=== PATIENT | female | born 1940 | race Caucasian/White ===

== ENCOUNTER 2023-02-15 18:54 | Inpatient (IN) | payer OTHER ==
--- OUTSIDE RECORDS SUMMARY | 2023-02-15 19:03 | XMS REPORT | Continuity of Care Document ---
:1940 [facility] t Address [address] [facility] [address] [place] [address] Care Team Providers Name Role Phone Daniela Jeronimo MD Primary Care Physician PENNY Attending Clinician Unavailable Suhail Mock MD Attending Clinician Armin Juares MD Attending Clinician Daniela Jeronimo Attending Clinician [phone] Rosa Kimball Attending Clinician Unavailable Provider , Not In System Attending Clinician Unavailable Cynthia Crespo MA Attending Clinician Unavailable Edwin Pérez Attending Clinician [phone] penny Attending Clinician Unavailable ALLAN_Jose Admitting Clinician Unavailable SUHAIL MOCK Admitting Clinician Unavailable penny Admitting Clinician Unavailable Payers Payer Name Policy Type Policy Number Effective Date Expiration Date Hipolito figueroa MEDICARE B-[place]: [id number] 2005 [employer] 00:00:00 WEB-TPA [id number] 2013 00:00:00 WEB TPA (MEDICARE [id number] SUPPLEMENT) [facility] [id number] [employer] (SECONDARY) Problems Condition Condition Condition Status Onset Resolution Last Treating Co mments Source Name Details Category Date Date Treatment Clinician Date Osteoarthr Osteoarthr Problem Active [facility] itis itis 3- [facility] 00:00: ty 00 [facility] Increased Increased Problem Active [facility] frequency Frequency 3-29 Comm uni of of 00:00: ty urination Urination 00 Hosp cb l Clinics Pain in Pain in Problem Active [place] lower limb Lower Limb 1-04 Co mmuni 00:00: ty 00 [facility] Clinics Type 2 Type 2 Problem Active [place] diabetes Diabetes 9-13 Commun i mellitus Mellitus 00:00: ty without without 00 Hospita complicati Complicati l on on Clinics Cobalamin Cobalamin Problem Active [facility] deficiency Deficiency 9-13 Co m[facility]i 00:00: ty 00 [facility] Clinics Essential Essential Problem Active [facility] hypertensi Hypertensi 9-13 Co m[facility]i on on 00:00: ty 00 [facility]ospita [facility] Clinics Low back Low Back Problem Active [facility] pain Pain 8-09 [facility] 00:00: ty 00 [facility] Clin[facility] Weakness Weakness Problem Active [place] of left of Left 8-09 [facility] leg Leg 00:00: ty 00 [facility] Clinics Weakness Weakness Problem Active [place] [facility] of left of Left 809 [facility] arm Arm 00:00: ty 00 [facility]ita [facility] Clinics Left lower Left Lower Problem Active [facility] quadrant Quadrant 6-13 Commun i pain Pain 00:00: ty 00 [facility]ospita l Clinics Chest wall Chest Wall Problem Active [facility] pain Pain 3-17 [facility] 00:00: ty 00 [facility] Clinics Diarrhea Diarrhea Problem Active [facility] 3-17 [facility] 00:00: ty 00 [facility]ospita l Clinics Falls Falls Problem Active [place] 3-17 [facility]i 00:00: ty 00 [facility] Clinics Anxiety Anxiety Problem Active [place] 2-15 [facility] 00:00: ty 00 [facility]ospita l Clinics Left side Left Side Problem Active 2020-10 [facility] sciatica Sciatica 0-06 Commun i 00:00: ty 00 [facility]ospita l Clinics Urinary Urinary Problem Active [place] incontinen Incontinen 1-20 Co mmuni ce ce 00:00: ty 00 [facility]ospita l Clinics Numbness Numbness Problem Active [place] of hand of Hand 9-01 [facility]i 00:00: ty 00 [facility] Clinics Long-term Long-term Problem Active 2020-0 [facility] drug Drug 8-19 [facility] therapy Therapy 00:00: ty [facility] Indigestio Indigestio Problem Active 2019-0 S [facility] n n 5-15 [facility]i 00:00: ty 00 [facility]ospita Clinics Muscle Muscle Problem Active 2019-0 [place] weakness Weakness 5-15 Commun i 00:00: ty 00 [facility] Osteoporos Osteoporos Problem Active 2019-0 S [facility] is is 5-15 [facility]i 00:00: ty [facility] Abdominal Abdominal Problem Active 2019-0 [facility] pain Pain 5-15 [facility] 00:00: ty [facility] Knee pain Knee Pain Problem Active 2018-0 [facility] 9-20 [facility]i 00:00: ty 00 [facility] Hand pain Hand Pain Problem Active 2018-0 [facility] 9-20 [facility]i 00:00: ty 00 [facility] Malaise Malaise Problem Active 2018-0 [place] 9-20 [facility] 00:00: ty [facility]ge Urge Problem Active 2018-0 [place] incontinen Incontinen 9-20 Co mmuni ce of ce of 00:00: ty urine Urine 00 [facility] Upper Upper Problem Active 2018-0 [place] respirator Respirator 5-10 Co mmuni y y 00:00: ty infection Infection 00 Hosp cb Clinics 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 [facility]initis 00:00: ty [facility] Urinary Urinary Problem Active 2018-0 [place] tract Tract 5-10 Communi infectious Infectious 00:00: ty disease Disease 00 [facility] Type 2 Type 2 Problem Active [place] diabetes Diabetes 3-29 Commun i mellitus Mellitus 00:00: ty 00 [facility] Hypertensi Hypertensi Problem Active 2018-0 S [facility] ve ve 3-29 Communi disorder Disorder 00:00: ty 00 [facility] Allergies, Adverse Reactions, Alerts Allergy Allergy Status Severity Reaction(s) Onset Inactive Treating Comm ents Source Name Type Date Date Clinician Ciproflo Propensi Active Altered 2020-10 Metho di xacin ty to Mental 11-10 st adverse Status 00:00: Hospita reaction 00 l s to drug Iodine Propensi Active Swelling 2020-10 Method i ty to 11-10 st adverse 00:00: Hospita reaction 00 l s to drug Cipro Allergy Active Moderate Confusion [place] to [facility] substanc ty e Hospita l Clinics Iodine Allergy Active [place] to [facility] ty e Hospita l Clinics Family History Family Member Diagnosis Comments Start Date Stop Date Source Natural mother [facility] Social History Social Habit Start Date Stop Date Quantity Comments Source [facility] Alcohol intake 2022-09-09 2022-09-09 Current drinker of [facility] 00:00:00 00:00:00 alcohol (finding) Hospita l History of Social 2022-09-09 2022-09-[address] function 00:00:00 00:00:00 Hospital Tobacco use and 2021-08-12 2021-08-12 Smokeless tobacco [facility] exposure 00:00:00 00:00:00 non-user Hospital Alcohol Comment 2021-08-12 2021-08-[address] 00:00:00 00:00:00 [facility] Sex Assigned At [birth year] [facility] Smoking Status Start Date Stop Date Source [facility] smoked tobacco [facility] Medications Ordered Filled Start Stop Current Ordering Indication Dosage Frequency Signature Comments Components Source Medication Medication Date Date Medication? Clinician (SIG) Name Name acetaminoph 2021-10 Yes Take 2 Meth ameya en (TYLENOL 2-[address] ARTHRITIS 10:39: tablet(s) [facility] [place] ORAL) 02 by mouth. l ALPRAZolam 2021-10 Yes .25mg QD Take 0.25 M ethodi (XANAX) 2-[address] 0.25 MG 10:39: mouth Hospita tablet 45 nightly as l needed for anxiety. multivitami 2021-10 Yes 1{tbl} Take 1 [facility]/iron/foli 2-[address] c acid 10:39: mouth. Hospita (CENTRUM 45 l COMPLETE ORAL) beta-carote 2021-10 Yes 1{tbl} Take 1 [facility] ne,A,-vits 2-[address] C,E/mins 10:39: mouth. Hospita (OCUVITE 45 l ORAL) meloxicam 2021-10 Yes 7.5mg QD Take 7.5 [facility] (MOBIC) 7.5 2-[address] mg tablet 10:39: mouth Hospita 45 daily. l lisinopriL 2021-10 Yes 10mg QD Take 10 mg M ethodi (PRINIVIL) 2-[address] 10 mg 10:39: daily. Hospita tablet 45 l insulin 2021-10 Yes 24U Inject 24 Metho di GLARGINE 2-[address] (LANTUS) 10:39: under the Hosp cb 100 unit/mL 45 skin. l injection (vial) ezetimibe 2021-10 Yes ezetimibe [facility] (ZETIA) 10 2-[address] mg tablet 10:39: tablet Hospit a 45 TAKE 1 l TABLET BY MOUTH EVERY DAY cyanocobala cyanocobala 2021-10 No cyanocobal [place] min (vit min (vit 0-04 villafana (vit Co mmuni B-12) 1,000 B-12) 000 15:17: B-12) ty mcg/mL mcg/mL 23 ,000 Hospita injection injection mcg/mL l solutionInj solutionInj injection Clinics ect 1 mL ect 1 mL solutionIn every month every month ject 1 mL by by every subcutaneou subcutaneou month by s route. s route. subcutaneo us route. cyanocobala cyanocobala 2021-10 No cyanocobal [place] min (vit min (vit 0-04 villafana (vit Co mmuni B-12) 1,000 B-12) 000 15:17: B-12) ty mcg/mL mcg/mL 23 1,000 Hospita injection injection mcg/mL l solutionInj solutionInj injection Clinics ect 1 mL ect 1 mL solutionIn every month every month ject 1 mL by by every subcutaneou subcutaneou month by s route. s route. subcutaneo us route. cyanocobala cyanocobala No cyanocobal [place] min (vit min (vit 9-13 villafana (vit Co mmuni B-12) 1,000 B-12) 1,000 10:04: B-12) ty mcg/mL mcg/mL 17 1,000 Hospita injection injection mcg/mL l solutionInj solutionInj injection Clinics ect 1 mL ect 1 mL solutionIn every month every month ject 1 mL by by every subcutaneou subcutaneou month by s route. s route. subcutaneo us route. cyanocobala cyanocobala No cyanocobal [place] min (vit min (vit 8-17 villafana (vit Co mmuni B-12) 1,000 B-12) 1,000 14:00: B-12) ty mcg/mL mcg/mL 50 1,000 Hospita injection injection mcg/mL l solutionInj solutionInj injection Clinics ect 1 mL ect 1 mL solutionIn every month every month ject 1 mL by by every subcutaneou subcutaneou month by s route. s route. subcutaneo us route. diphenoxyla 2021- No [id number] 1{tbl} Q.25D Take 1 Method[facility] te-atropine 8-10 09-[address] (LomotiL) 00:00: 04:59 mouth 4 Hosp cb 2.5-0.025 00 :00 (four) l mg per times a tablet day as needed for diarrhea for up to 30 days. traMADoL 2021- [place] [id number] 50mg Q6H Take 50 mg M ethodi (ULTRAM) 50 04-[address] mg tablet 16:50: 00:00 every 6 Hosp cb 28 :00 (six) l hours as needed for moderate pain .acute pain. mirabegron 2021- No 25mg Take 25 mg [facility] 25 mg 04-[address] tablet 16:50: 00:00 Hospita extended 18 :00 l release 24 hr nitrofurant nitrofurant No nitrofuran [place] oin oin 6-06 toin Communi monohydrate monohydrate 00:00: monohydrat ty /macrocryst /macrocryst 00 e/macrocry Hospita als 100 mg als 100 mg stals 100 l capsule capsule mg capsule Cli nics TAKE 1 TAKE 1 TAKE 1 CAPSULE BY CAPSULE BY CAPSULE BY MOUTH TWICE MOUTH TWICE MOUTH DAILY FOR DAILY FOR TWICE 10 DAYS AND 10 DAYS AND DAILY FOR THEN TAKE 1 THEN TAKE 1 10 DAYS CAPSULE BY CAPSULE BY AND THEN MOUTH EVERY MOUTH EVERY TAKE 1 DAY FOR DAY FOR CAPSULE BY PREVENTION PREVENTION MOUTH OFUTI OFUTI EVERY DAY FOR PREVENTION OFUTI nitrofurant nitrofurant No nitrofuran [place] oin oin 03-14 toin Communi monohydrate monohydrate 00:00: monohydrat ty /macrocryst /macrocryst 00 e/macrocry Hospita als 100 mg als 100 mg stals 100 l capsule capsule mg capsule Cli nics TAKE 1 TAKE 1 TAKE 1 CAPSULE BY CAPSULE BY CAPSULE BY MOUTH TWICE MOUTH TWICE MOUTH DAILY FOR DAILY FOR TWICE 10 DAYS AND 10 DAYS AND DAILY FOR THEN TAKE 1 THEN TAKE 1 10 DAYS CAPSULE BY CAPSULE BY AND THEN MOUTH EVERY MOUTH EVERY TAKE 1 DAY FOR DAY FOR CAPSULE BY PREVENTION PREVENTION MOUTH OFUTI OFUTI EVERY DAY FOR PREVENTION OFUTI nitrofurant nitrofurant No nitrofuran [place] oin oin 03-14 toin Communi monohydrate monohydrate 00:00: monohydrat ty /macrocryst /macrocryst 00 e/macrocry Hospita als 100 mg als 100 mg stals 100 l capsule capsule mg capsule Cli nics TAKE 1 TAKE 1 TAKE 1 CAPSULE BY CAPSULE BY CAPSULE BY MOUTH TWICE MOUTH TWICE MOUTH DAILY FOR DAILY FOR TWICE 10 DAYS AND 10 DAYS AND DAILY FOR THEN TAKE 1 THEN TAKE 1 10 DAYS CAPSULE BY CAPSULE BY AND THEN MOUTH EVERY MOUTH EVERY TAKE 1 DAY FOR DAY FOR CAPSULE BY PREVENTION PREVENTION MOUTH OFUTI OFUTI EVERY DAY FOR PREVENTION OFUTI Kenalog 40 Kenalog 40 No Kenalog 40 [place] mg/mL mg/mL 4-26 mg/mL Communi suspension suspension 14:12: suspension ty for for 34 for Hospita injectionTa injectionTa injectionT l ke 2 mL by ke 2 mL by regine 2 mL Clinics injection injection by route. route. injection route. Myrbetriq Myrbetriq No 1 Q1D Myrbetriq [place] 25 mg 25 mg 25 mg Communi tablet,exte tablet,exte tablet,ext ty nded nded ended Hospita release release release l Take 1 Take 1 Take 1 Clinics tablet tablet tablet every day every day every day by oral by oral by oral route at route at route at bedtime. bedtime. bedtime. Prolia 60 Prolia 60 No Prolia 60 [place] mg/mL mg/mL mg/mL Communi subcutaneou subcutaneou subcutaneo ty s syringe 1 s syringe 1 us syringe Hospita ML SUBQ ML SUBQ 1 ML SUBQ l every 6 every 6 every 6 Clinic s months / months / months / m81.0 m81.0 m81.0 osteoporosi osteoporosi osteoporos s / inj s / inj is / inj code 48338 code 03872 code 57559 sertraline sertraline No sertraline [place] 25 mg 25 mg 25 mg Communi tablet Take tablet Take tablet ty 1 tablet 1 tablet Take 1 Hospi ta every day every day tablet l by oral by oral every day Clin ics route. route. by oral route. UltiCare UltiCare No UltiCare [facility] Pen Needle Pen Needle Pen Needle Communi 32 gauge x 32 gauge x 32 gauge x ty " USE " USE " USE Hospita WITH WITH WITH l INSULIN INSULIN INSULIN Clinic s INJECTIONS INJECTIONS INJECTIONS alprazolam alprazolam No alprazolam [place] 0.25 mg 0.25 mg 0.25 mg Commun i tablet TAKE tablet TAKE tablet ty 1 TABLET BY 1 TABLET BY TAKE 1 Hospita MOUTH EVERY MOUTH EVERY TABLET BY l NIGHT AT NIGHT AT MOUTH Clinic s BEDTIME BEDTIME EVERY NIGHT AT BEDTIME amoxicillin amoxicillin No amoxicilli [place] [phone] n 875 Communi mg-potassiu mg-potassiu mg-potassi ty m m um Hospita clavulanate clavulanate clavulanat l 125 mg 125 mg e 125 mg Clinics tablet Take tablet Take tablet 1 tablet 1 tablet Take 1 every 12 every 12 tablet hours by hours by every 12 oral route oral route hours by for 10 for 10 oral route days. days. for 10 days. [id number] F71-Wklim No 1 Q1D L77-Hugpe [place] 1,000 mcg 1,000 mcg 1,000 mcg Communi tablet Take tablet Take tablet ty 1 tablet 1 tablet Take 1 Hospi ta every day every day tablet l by oral by oral every day Clin ics route. route. by oral route. cyanocobala cyanocobala No 1mL cyanocobal [place] min (vit min (vit villafana (vit Co mmuni B-12) 1,000 B-12) 1,000 B-12) ty mcg/mL mcg/mL 1,000 Hospita injection injection mcg/mL l solution solution injection Cl inics Inject 1 mL Inject 1 mL solution every month every month Inject 1 by by mL every subcutaneou subcutaneou month by s route. s route. subcutaneo us route. Lantus Lantus No Lantus [place] Solostar Solostar Solostar Com shadi U-100 U-100 U-100 ty Insulin 100 Insulin 100 Insulin Hospita unit/mL (3 unit/mL (3 100 l mL) mL) unit/mL (3 Clinics subcutaneou subcutaneou mL) s pen s pen subcutaneo INJECT 80 INJECT 80 us pen UNITS UNDER UNITS UNDER INJECT 80 THE SKIN THE SKIN UNITS EVERY DAY EVERY DAY UNDER THE SKIN EVERY DAY levothyroxi levothyroxi No levothyrox [place] ne 25 mcg ne 25 mcg ine 25 mcg Communi tablet TAKE tablet TAKE tablet ty 1 TABLET BY 1 TABLET BY TAKE 1 Hospita MOUTH EVERY MOUTH EVERY TABLET BY l DAY DAY MOUTH Clinics EVERY DAY lisinopril lisinopril No lisinopril [place] 10 mg 10 mg 10 mg Communi tablet Take tablet Take tablet ty 1 tablet 1 tablet Take 1 Hospi ta every day every day tablet l by oral by oral every day Clin ics route. route. by oral route. Multi For Multi For No Multi For [place] Her Her Her Communi ty Hospita l Clinics Myrbetriq Myrbetriq No 1 Q1D Myrbetriq [place] 25 mg 25 mg 25 mg Communi tablet,exte tablet,exte tablet,ext ty nded nded ended Hospita release release release l Take 1 Take 1 Take 1 Clinics tablet tablet tablet every day every day every day by oral by oral by oral route at route at route at bedtime. bedtime. bedtime. Prolia 60 Prolia 60 No Prolia 60 [place] mg/mL mg/mL mg/mL Communi subcutaneou subcutaneou subcutaneo ty s syringe 1 s syringe 1 us syringe Hospita ML SUBQ ML SUBQ 1 ML SUBQ l every 6 every 6 every 6 Clinic s months / months / months / m81.0 m81.0 m81.0 osteoporosi osteoporosi osteoporos s / inj s / inj is / inj code 25970 code 60618 code 78305 sertraline sertraline No sertraline [place] 25 mg 25 mg 25 mg Communi tablet Take tablet Take tablet ty 1 tablet 1 tablet Take 1 Hospi ta every day every day tablet l by oral by oral every day Clin ics route. route. by oral route. UltiCare UltiCare No UltiCare [facility] Pen Needle Pen Needle Pen Needle Communi 32 gauge x 32 gauge x 32 gauge x ty " USE " USE " USE Hospita WITH WITH WITH l INSULIN INSULIN INSULIN Clinic s INJECTIONS INJECTIONS INJECTIONS alprazolam alprazolam No alprazolam [place] 0.25 mg 0.25 mg 0.25 mg Commun i tablet TAKE tablet TAKE tablet ty 1 TABLET BY 1 TABLET BY TAKE 1 Hospita MOUTH EVERY MOUTH EVERY TABLET BY l NIGHT AT NIGHT AT MOUTH Clinic s BEDTIME BEDTIME EVERY NIGHT AT BEDTIME amoxicillin amoxicillin No amoxicilli [place] [id number] n 875 Communi mg-potassiu mg-potassiu mg-potassi ty m m um Hospita clavulanate clavulanate clavulanat l 125 mg 125 mg e 125 mg Clinics tablet Take tablet Take tablet 1 tablet 1 tablet Take 1 every 12 every 12 tablet hours by hours by every 12 oral route oral route hours by for 10 for 10 oral route days. days. for 10 days. [id number] K58-Vrtqc No 1 Q1D J01-Kbgsd [place] 1,000 mcg 1,000 mcg 1,000 mcg Communi tablet Take tablet Take tablet ty 1 tablet 1 tablet Take 1 Hospi ta every day every day tablet l by oral by oral every day Clin ics route. route. by oral route. cyanocobala cyanocobala No 1mL cyanocobal [place] min (vit min (vit villafana (vit Co mmuni B-12) 1,000 B-12) 1,000 B-12) ty mcg/mL mcg/mL 1,000 Hospita injection injection mcg/mL l solution solution injection Cl inics Inject 1 mL Inject 1 mL solution every month every month Inject 1 by by mL every subcutaneou subcutaneou month by s route. s route. subcutaneo us route. Kenalog 40 Kenalog 40 No 2mL Kenalog 40 [place] mg/mL mg/mL mg/mL Communi suspension suspension suspension ty for for for Hospita injection injection injection l Take 2 mL Take 2 mL Take 2 mL Clinics by by by injection injection injection route. route. route. Lantus Lantus No Lantus [place] Solostar Solostar Solostar Com shadi U-100 U-100 U-100 ty Insulin 100 Insulin 100 Insulin Hospita unit/mL (3 unit/mL (3 100 l mL) mL) unit/mL (3 Clinics subcutaneou subcutaneou mL) s pen s pen subcutaneo INJECT 80 INJECT 80 us pen UNITS UNDER UNITS UNDER INJECT 80 THE SKIN THE SKIN UNITS EVERY DAY EVERY DAY UNDER THE SKIN EVERY DAY levothyroxi levothyroxi No levothyrox [place] ne 25 mcg ne 25 mcg ine 25 mcg Communi tablet TAKE tablet TAKE tablet ty 1 TABLET BY 1 TABLET BY TAKE 1 Hospita MOUTH EVERY MOUTH EVERY TABLET BY l DAY DAY MOUTH Clinics EVERY DAY lisinopril lisinopril No lisinopril [place] 10 mg 10 mg 10 mg Communi tablet Take tablet Take tablet ty 1 tablet 1 tablet Take 1 Hospi ta every day every day tablet l by oral by oral every day Clin ics route. route. by oral route. Multi For Multi For No Multi For [place] Her Her Her Communi ty Hospita l Clinics Myrbetriq Myrbetriq No Myrbetriq [place] 25 mg 25 mg 25 mg Communi tablet,exte tablet,exte tablet,ext ty nded nded ended Hospita release release release l Take 1 Take 1 Take 1 Clinics tablet tablet tablet every day every day every day by oral by oral by oral route at route at route at bedtime. bedtime. bedtime. Prolia 60 Prolia 60 No Prolia 60 [place] mg/mL mg/mL mg/mL Communi subcutaneou subcutaneou subcutaneo ty s syringe 1 s syringe 1 us syringe Hospita ML SUBQ ML SUBQ 1 ML SUBQ l every 6 every 6 every 6 Clinic s months / months / months / m81.0 m81.0 m81.0 osteoporosi osteoporosi osteoporos s / inj s / inj is / inj code 23320 code 25832 code 66149 sertraline sertraline No sertraline [place] 25 mg 25 mg 25 mg Communi tablet Take tablet Take tablet ty 1 tablet 1 tablet Take 1 Hospi ta every day every day tablet l by oral by oral every day Clin ics route. route. by oral route. UltiCare UltiCare No UltiCare [facility] Pen Needle Pen Needle Pen Needle Communi 32 gauge x 32 gauge x 32 gauge x ty " USE " USE " USE Hospita WITH WITH WITH l INSULIN INSULIN INSULIN Clinic s INJECTIONS INJECTIONS INJECTIONS Zithromax Zithromax No Zithromax [place] Z-August 250 Z-August 250 Z-August 250 Communi mg tablet mg tablet mg tablet ty TAKE 2 TAKE 2 TAKE 2 Hospita TABLETS TABLETS TABLETS l (500 MG) BY (500 MG) BY (500 MG) Clinics ORAL ROUTE ORAL ROUTE BY ORAL ONCE DAILY ONCE DAILY ROUTE ONCE FOR 1 DAY FOR 1 DAY DAILY FOR THEN 1 THEN 1 1 DAY THEN TABLET (250 TABLET (250 1 TABLET MG) BY ORAL MG) BY ORAL (250 MG) ROUTE ONCE ROUTE ONCE BY ORAL DAILY FOR 4 DAILY FOR 4 ROUTE ONCE DAYS DAYS DAILY FOR 4 DAYS alprazolam alprazolam No alprazolam [place] 0.25 mg 0.25 mg 0.25 mg Commun i tablet TAKE tablet TAKE tablet ty 1 TABLET BY 1 TABLET BY TAKE 1 Hospita MOUTH EVERY MOUTH EVERY TABLET BY l NIGHT AT NIGHT AT MOUTH Clinic s BEDTIME BEDTIME EVERY NIGHT AT BEDTIME [id number] W04-Gtaxq No 1 Q1D N18-Edqvo [place] 1,000 mcg 1,000 mcg 1,000 mcg Communi tablet Take tablet Take tablet ty 1 tablet 1 tablet Take 1 Hospi ta every day every day tablet l by oral by oral every day Clin ics route. route. by oral route. cyanocobala cyanocobala No 1mL cyanocobal [place] min (vit min (vit villafana (vit Co mmuni B-12) 1,000 B-12) 1,000 B-12) ty mcg/mL mcg/mL 1,000 Hospita injection injection mcg/mL l solution solution injection Cl inics Inject 1 mL Inject 1 mL solution every month every month Inject 1 by by mL every subcutaneou subcutaneou month by s route. s route. subcutaneo us route. Lantus Lantus No Lantus [place] Solostar Solostar Solostar Com shadi U-100 U-100 U-100 ty Insulin 100 Insulin 100 Insulin Hospita unit/mL (3 unit/mL (3 100 l mL) mL) unit/mL (3 Clinics subcutaneou subcutaneou mL) s pen s pen subcutaneo INJECT 80 INJECT 80 us pen UNITS UNDER UNITS UNDER INJECT 80 THE SKIN THE SKIN UNITS EVERY DAY EVERY DAY UNDER THE SKIN EVERY DAY levothyroxi levothyroxi No levothyrox [place] ne 25 mcg ne 25 mcg ine 25 mcg Communi tablet TAKE tablet TAKE tablet ty 1 TABLET BY 1 TABLET BY TAKE 1 Hospita MOUTH EVERY MOUTH EVERY TABLET BY l DAY DAY MOUTH Clinics EVERY DAY lisinopril lisinopril No lisinopril [place] 10 mg 10 mg 10 mg Communi tablet Take tablet Take tablet ty 1 tablet 1 tablet Take 1 Hospi ta every day every day tablet l by oral by oral every day Clin ics route. route. by oral route. meloxicam meloxicam No 1 Q1D meloxicam [place] 7.5 mg 7.5 mg 7.5 mg Communi tablet Take tablet Take tablet ty 1 tablet 1 tablet Take 1 Hospi ta every day every day tablet l by oral by oral every day Clin ics route with route with by oral meals. meals. route with meals. Multi For Multi For No Multi For [place] Her Her Her Communi ty Hospita l Clinics Myrbetriq Myrbetriq No Myrbetriq [place] 25 mg 25 mg 25 mg Communi tablet,exte tablet,exte tablet,ext ty nded nded ended Hospita release release release l TAKE 1 TAKE 1 TAKE 1 Clinics TABLET BY TABLET BY TABLET BY MOUTH EVERY MOUTH EVERY MOUTH NIGHT AT NIGHT AT EVERY BEDTIME BEDTIME NIGHT AT BEDTIME Prolia 60 Prolia 60 No Prolia 60 [place] mg/mL mg/mL mg/mL Communi subcutaneou subcutaneou subcutaneo ty s syringe 1 s syringe 1 us syringe Hospita ML SUBQ ML SUBQ 1 ML SUBQ l every 6 every 6 every 6 Clinic s months / months / months / m81.0 m81.0 m81.0 osteoporosi osteoporosi osteoporos s / inj s / inj is / inj code 19174 code 40757 code 92210 sertraline sertraline No sertraline [place] 25 mg 25 mg 25 mg Communi tablet Take tablet Take tablet ty 1 tablet 1 tablet Take 1 Hospi ta every day every day tablet l by oral by oral every day Clin ics route. route. by oral route. UltiCare UltiCare No UltiCare [facility] Pen Needle Pen Needle Pen Needle [facility]i 32 gauge x 32 gauge x 32 gauge x ty " USE " USE " USE Hospita DIRECTED DIRECTED l WITH WITH DIRECTED Clinics INSULIN INSULIN WITH INJECTIONS INJECTIONS INSULIN INJECTIONS alprazolam alprazolam No alprazolam [place] 0.25 mg 0.25 mg 0.25 mg Commun i tablet TAKE tablet TAKE tablet ty 1 TABLET BY 1 TABLET BY TAKE 1 Hospita MOUTH EVERY MOUTH EVERY TABLET BY l NIGHT AT NIGHT AT MOUTH Clinic s BEDTIME BEDTIME EVERY NIGHT AT BEDTIME [id number] F52-Lfwao No 1 Q1D J93-Iluax [place] 1,000 mcg 1,000 mcg 1,000 mcg Communi tablet Take tablet Take tablet ty 1 tablet 1 tablet Take 1 Hospi ta every day every day tablet l by oral by oral every day Clin ics route. route. by oral route. Bactrim DS Bactrim DS No 1 Q12H Bactrim DS [place] 800 mg-160 800 mg-160 800 mg-160 [facility] mg tablet mg tablet mg tablet ty Take 1 Take 1 Take 1 Hospita tablet tablet tablet l every 12 every 12 every 12 Cli nics hours by hours by hours by oral route oral route oral route for 7 days. for 7 days. for 7 days. cyanocobala cyanocobala No 1mL cyanocobal [place] min (vit min (vit villafana (vit Co mmuni B-12) 1,000 B-12) 1,000 B-12) ty mcg/mL mcg/mL 1,000 Hospita injection injection mcg/mL l solution solution injection Cl inics Inject 1 mL Inject 1 mL solution every month every month Inject 1 by by mL every subcutaneou subcutaneou month by s route. s route. subcutaneo us route. Lantus Lantus No Lantus [place] Solostar Solostar Solostar Com shadi U-100 U-100 U-100 ty Insulin 100 Insulin 100 Insulin Hospita unit/mL (3 unit/mL (3 100 l mL) mL) unit/mL (3 Clinics subcutaneou subcutaneou mL) s pen s pen subcutaneo INJECT 80 INJECT 80 us pen UNITS UNDER UNITS UNDER INJECT 80 THE SKIN THE SKIN UNITS EVERY DAY EVERY DAY UNDER THE SKIN EVERY DAY levothyroxi levothyroxi No levothyrox [place] ne 25 mcg ne 25 mcg ine 25 mcg [facility] tablet TAKE tablet TAKE tablet ty 1 TABLET BY 1 TABLET BY TAKE 1 Hospita MOUTH EVERY MOUTH EVERY TABLET BY l DAY DAY MOUTH Clinics EVERY DAY lisinopril lisinopril No lisinopril [place] 10 mg 10 mg 10 mg [facility] tablet Take tablet Take tablet ty 1 tablet 1 tablet Take 1 Hospi ta every day every day tablet l by oral by oral every day Clin ics route. route. by oral route. Medrol Medrol No Medrol [place] (August) 4 mg (August) 4 mg (August) 4 mg [facility] tablets in tablets in tablets in ty a dose pack a dose pack a dose Hospita as directed as directed pack as l directed Clinics meloxicam meloxicam No meloxicam [place] 7.5 mg 7.5 mg 7.5 mg [facility] tablet Take tablet Take tablet ty 1 tablet 1 tablet Take 1 Hospi ta every day every day tablet l by oral by oral every day Clin ics route with route with by oral meals. meals. route with meals. Multi For Multi For No Multi For [place] Her Her Her [facility] ty Hospita l Clinics Myrbetriq Myrbetriq No Myrbetriq [place] 25 mg 25 mg 25 mg [facility] tablet,exte tablet,exte tablet,ext ty nded nded ended Hospita release release release l TAKE 1 TAKE 1 TAKE 1 Clinics TABLET BY TABLET BY TABLET BY MOUTH EVERY MOUTH EVERY MOUTH NIGHT AT NIGHT AT EVERY BEDTIME BEDTIME NIGHT AT BEDTIME Prolia 60 Prolia 60 No Prolia 60 [place] mg/mL mg/mL mg/mL [facility]i subcutaneou subcutaneou subcutaneo ty s syringe 1 s syringe 1 us syringe Hospita ML SUBQ ML SUBQ 1 ML SUBQ l every 6 every 6 every 6 Clinic s months / months / months / m81.0 m81.0 m81.0 osteoporosi osteoporosi osteoporos s / inj s / inj is / inj code 63327 code 53436 code 48383 sertraline sertraline No sertraline [place] 25 mg 25 mg 25 mg [facility] tablet Take tablet Take tablet ty 1 tablet 1 tablet Take 1 Hospi ta every day every day tablet l by oral by oral every day Clin ics route. route. by oral route. UltiCare UltiCare No UltiCare Swe tristian Pen Needle Pen Needle Pen Needle [facility] 32 gauge x 32 gauge x 32 gauge x ty " USE " USE " USE Hospita DIRECTED DIRECTED l WITH WITH DIRECTED Clinics INSULIN INSULIN WITH INJECTIONS INJECTIONS INSULIN INJECTIONS alprazolam alprazolam No alprazolam [place] 0.25 mg 0.25 mg 0.25 mg Commun i tablet TAKE tablet TAKE tablet ty 1 TABLET BY 1 TABLET BY TAKE 1 Hospita MOUTH EVERY MOUTH EVERY TABLET BY l NIGHT AT NIGHT AT MOUTH Clinic s BEDTIME BEDTIME EVERY NIGHT AT BEDTIME [id number] No 1 Q1D [id number] [place] 1,000 mcg 1,000 mcg 1,000 mcg [facility] tablet Take tablet Take tablet ty 1 tablet 1 tablet Take 1 Hospi ta every day every day tablet l by oral by oral every day Clin ics route. route. by oral route. cyanocobala cyanocobala No 1mL cyanocobal [place] min (vit min (vit villafana (vit Co mmuni B-12) 1,000 B-12) 1,000 B-12) ty mcg/mL mcg/mL 1,000 Hospita injection injection mcg/mL l solution solution injection Cl inics Inject 1 mL Inject 1 mL solution every month every month Inject 1 by by mL every subcutaneou subcutaneou month by s route. s route. subcutaneo us route. Lantus Lantus No Lantus [place] Solostar Solostar Solostar Com shadi U-100 U-100 U-100 ty Insulin 100 Insulin 100 Insulin Hospita unit/mL (3 unit/mL (3 100 l mL) mL) unit/mL (3 Clinics subcutaneou subcutaneou mL) s pen s pen subcutaneo INJECT 80 INJECT 80 us pen UNITS UNDER UNITS UNDER INJECT 80 THE SKIN THE SKIN UNITS EVERY DAY EVERY DAY UNDER THE SKIN EVERY DAY levothyroxi levothyroxi No levothyrox [place] ne 25 mcg ne 25 mcg ine 25 mcg [facility] tablet TAKE tablet TAKE tablet ty 1 TABLET BY 1 TABLET BY TAKE 1 Hospita MOUTH EVERY MOUTH EVERY TABLET BY l DAY DAY MOUTH Clinics EVERY DAY lisinopril lisinopril No lisinopril [place] 10 mg 10 mg 10 mg [facility] tablet Take tablet Take tablet ty 1 tablet 1 tablet Take 1 Hospi ta every day every day tablet l by oral by oral every day Clin ics route. route. by oral route. meloxicam meloxicam No meloxicam [place] 7.5 mg 7.5 mg 7.5 mg [facility] tablet Take tablet Take tablet ty 1 tablet 1 tablet Take 1 Hospi ta every day every day tablet l by oral by oral every day Clin ics route with route with by oral meals. meals. route with meals. methylpredn methylpredn No methylpred [place] isolone 4 isolone 4 nisolone 4 [facility] mg tablets mg tablets mg tablets ty in a dose in a dose in a dose Hospita pack as pack as pack as l directed directed directed Cli nics Multi For Multi For No Multi For [place] Her Her Her Commun[facility] ty Hospita l Clinics Myrbetriq Myrbetriq No Myrbetriq [place] 25 mg 25 mg 25 mg [facility] tablet,exte tablet,exte tablet,ext ty nded nded ended Hospita release release release l TAKE 1 TAKE 1 TAKE 1 Clinics TABLET BY TABLET BY TABLET BY MOUTH EVERY MOUTH EVERY MOUTH NIGHT AT NIGHT AT EVERY BEDTIME BEDTIME NIGHT AT BEDTIME Prolia 60 Prolia 60 No Prolia 60 [place] mg/mL mg/mL mg/mL [facility] subcutaneou subcutaneou subcutaneo ty s syringe 1 s syringe 1 us syringe Hospita ML SUBQ ML SUBQ 1 ML SUBQ l every 6 every 6 every 6 Clinic s months / months / months / m81.0 m81.0 m81.0 osteoporosi osteoporosi osteoporos s / inj s / inj is / inj code 37208 code 57586 code 12839 sertraline sertraline No sertraline [place] 25 mg 25 mg 25 mg [facility] tablet Take tablet Take tablet ty 1 tablet 1 tablet Take 1 Hospi ta every day every day tablet l by oral by oral every day Clin ics route. route. by oral route. sulfamethox sulfamethox No sulfametho [place] azole 800 azole 800 xazole 800 [facility] mg-trimetho mg-trimetho mg-trimeth ty prim 160 mg prim 160 mg oprim 160 Hospita tablet Take tablet Take mg tablet l 1 tablet 1 tablet Take 1 Clini cs every 12 every 12 tablet hours by hours by every 12 oral route oral route hours by for 7 days. for 7 days. oral route for 7 days. UltiCare UltiCare No UltiCare Swe tristian Pen Needle Pen Needle Pen Needle [facility] 32 gauge x 32 gauge x 32 gauge x ty " USE " USE " USE Hospita DIRECTED DIRECTED l WITH WITH DIRECTED Clinics INSULIN INSULIN WITH INJECTIONS INJECTIONS INSULIN INJECTIONS alprazolam alprazolam No alprazolam [place] 0.25 mg 0.25 mg 0.25 mg Commun i tablet TAKE tablet TAKE tablet ty 1 TABLET BY 1 TABLET BY TAKE 1 Hospita MOUTH EVERY MOUTH EVERY TABLET BY l NIGHT AT NIGHT AT MOUTH Clinic s BEDTIME BEDTIME EVERY NIGHT AT BEDTIME [id number] No 1 Q1D [id number] [place] 1,000 mcg 1,000 mcg 1,000 mcg [facility] tablet Take tablet Take tablet ty 1 tablet 1 tablet Take 1 Hospi ta every day every day tablet l by oral by oral every day Clin ics route. route. by oral route. cyanocobala cyanocobala No 1mL cyanocobal [place] min (vit min (vit villafana (vit Co mmuni B-12) 1,000 B-12) 1,000 B-12) ty mcg/mL mcg/mL 1,000 Hospita injection injection mcg/mL l solution solution injection Cl inics Inject 1 mL Inject 1 mL solution every month every month Inject 1 by by mL every subcutaneou subcutaneou month by s route. s route. subcutaneo us route. duloxetine duloxetine No 1capsul Q1D duloxetine [place] 30 mg 30 mg e(s) 30 mg [facility] capsule,del capsule,del capsule,de ty ayed ayed layed Hospita release release release l Take 1 Take 1 Take 1 Clinics capsule capsule capsule every day every day every day by oral by oral by oral route. route. route. gatifloxaci gatifloxaci No gatifloxac [place] n 0.5 % eye n 0.5 % eye in 0.5 % [facility] drops drops eye drops ty INSTILL 1 INSTILL 1 INSTILL 1 Hospita DROP IN DROP IN DROP IN l LEFT EYE LEFT EYE LEFT EYE Cli nics FOUR TIMES FOUR TIMES FOUR TIMES DAILY FOR 7 DAILY FOR 7 DAILY FOR DAYS DAYS 7 DAYS Lantus Lantus No Lantus [place] Solostar Solostar Solostar Com shadi U-100 U-100 U-100 ty Insulin 100 Insulin 100 Insulin Hospita unit/mL (3 unit/mL (3 100 l mL) mL) unit/mL (3 Clinics subcutaneou subcutaneou mL) s pen s pen subcutaneo INJECT 80 INJECT 80 us pen UNITS UNDER UNITS UNDER INJECT 80 THE SKIN THE SKIN UNITS EVERY DAY EVERY DAY UNDER THE SKIN EVERY DAY levothyroxi levothyroxi No levothyrox [place] ne 25 mcg ne 25 mcg ine 25 mcg [facility] tablet TAKE tablet TAKE tablet ty 1 TABLET BY 1 TABLET BY TAKE 1 Hospita MOUTH EVERY MOUTH EVERY TABLET BY l DAY DAY MOUTH Clinics EVERY DAY lisinopril lisinopril No lisinopril [place] 10 mg 10 mg 10 mg [facility] tablet TAKE tablet TAKE tablet ty 1 TABLET BY 1 TABLET BY TAKE 1 Hospita MOUTH ONCE MOUTH ONCE TABLET BY l EVERY DAY EVERY DAY MOUTH ONCE Clinics EVERY DAY meloxicam meloxicam No meloxicam [place] 7.5 mg 7.5 mg 7.5 mg [facility] tablet TAKE tablet TAKE tablet ty 1 TABLET BY 1 TABLET BY TAKE 1 Hospita MOUTH EVERY MOUTH EVERY TABLET BY l DAY WITH A DAY WITH A MOUTH Cl inics MEAL MEAL EVERY DAY WITH A MEAL Multi For Multi For No Multi For [place] Her Her Her [facility] ty Hospita l Clinics Myrbetriq Myrbetriq No Myrbetriq [place] 25 mg 25 mg 25 mg [facility] tablet,exte tablet,exte tablet,ext ty nded nded ended Hospita release release release l TAKE 1 TAKE 1 TAKE 1 Clinics TABLET BY TABLET BY TABLET BY MOUTH EVERY MOUTH EVERY MOUTH NIGHT AT NIGHT AT EVERY BEDTIME BEDTIME NIGHT AT BEDTIME Prolia 60 Prolia 60 No Prolia 60 [place] mg/mL mg/mL mg/mL [facility] subcutaneou subcutaneou subcutaneo ty s syringe 1 s syringe 1 us syringe Hospita ML SUBQ ML SUBQ 1 ML SUBQ l every 6 every 6 every 6 Clinic s months / months / months / m81.0 m81.0 m81.0 osteoporosi osteoporosi osteoporos s / inj s / inj is / inj code 24796 code 56195 code 82528 tramadol 50 tramadol 50 No tramadol [place] mg tablet mg tablet 50 mg Comm uni TAKE 1 TAKE 1 tablet ty TABLET BY TABLET BY TAKE 1 [facility] MOUTH EVERY MOUTH EVERY TABLET BY l 6 HOURS 6 HOURS MOUTH Clinics EVERY 6 HOURS Ult[facility] UltiCare No UltiCare Swe tristian Pen Needle Pen Needle Pen Needle [facility] 32 gauge x 32 gauge x 32 gauge x ty " USE " USE " USE Hospita DIRECTED DIRECTED l WITH WITH DIRECTED Clinics INSULIN INSULIN WITH INJECTIONS INJECTIONS INSULIN INJECTIONS alprazolam alprazolam No alprazolam [place] 0.25 mg 0.25 mg 0.25 mg Commun i tablet TAKE tablet TAKE tablet ty 1 TABLET BY 1 TABLET BY TAKE 1 Hospita MOUTH EVERY MOUTH EVERY TABLET BY l NIGHT AT NIGHT AT MOUTH Clinic s BEDTIME BEDTIME EVERY NIGHT AT BEDTIME diphenoxyla diphenoxyla No diphenoxyl [place] te-atropine te-atropine ate-atropi Communi 2.5 2.5 ne 2.5 ty mg-0.025 mg mg-0.025 mg mg-0.025 Hospita tablet 2 tablet 2 mg tablet l tablets at tablets at 2 tablets Clinics first loose first loose at first stool, then stool, then loose 1 tablet 1 tablet stool, each each then 1 additional additional tablet loose stool loose stool each up to 6 up to 6 additional tablets tablets loose daily. as daily. as stool up needed. needed. to 6 tablets daily. as needed. Lantus Lantus No Lantus [place] Solostar Solostar Solostar Com shadi U-100 U-100 U-100 ty Insulin 100 Insulin 100 Insulin Hospita unit/mL (3 unit/mL (3 100 l mL) mL) unit/mL (3 Clinics subcutaneou subcutaneou mL) s pen s pen subcutaneo INJECT 80 INJECT 80 us pen UNITS UNDER UNITS UNDER INJECT 80 THE SKIN THE SKIN UNITS EVERY DAY EVERY DAY UNDER THE SKIN EVERY DAY lisinopril lisinopril No lisinopril [place] 10 mg 10 mg 10 mg [facility] tablet TAKE tablet TAKE tablet ty 1 TABLET BY 1 TABLET BY TAKE 1 Hospita MOUTH ONCE MOUTH ONCE TABLET BY l EVERY DAY EVERY DAY MOUTH ONCE Clinics EVERY DAY meloxicam meloxicam No meloxicam [place] 7.5 mg 7.5 mg 7.5 mg [facility] tablet TAKE tablet TAKE tablet ty 1 TABLET BY 1 TABLET BY TAKE 1 Hospita MOUTH EVERY MOUTH EVERY TABLET BY l DAY WITH A DAY WITH A MOUTH Cl inics MEAL MEAL EVERY DAY WITH A MEAL metronidazo metronidazo No metronidaz [place] le 500 mg le 500 mg ole 500 mg [facility] tablet TAKE tablet TAKE tablet ty 1 TABLET BY 1 TABLET BY TAKE 1 Hospita MOUTH EVERY MOUTH EVERY TABLET BY l 8 HOURS 8 HOURS MOUTH Clinics EVERY [facility] ni ty Hospita l Clinics Prolia 60 Prolia 60 No Prolia 60 [place] mg/mL mg/mL mg/mL [facility] subcutaneou subcutaneou subcutaneo ty s syringe 1 s syringe 1 us syringe Hospita ML SUBQ ML SUBQ 1 ML SUBQ l every 6 every 6 every 6 Clinic s months / months / months / m81.0 m81.0 m81.0 osteoporosi osteoporosi osteoporos s / inj s / inj is / inj code 40193 code 45563 code 89360 tramadol 50 tramadol 50 No tramadol [place] mg tablet mg tablet 50 mg Comm uni TAKE 1 TAKE 1 tablet ty TABLET BY TABLET BY TAKE 1 [facility] MOUTH EVERY MOUTH EVERY TABLET BY l 6 HOURS 6 HOURS MOUTH Clinics EVERY 6 HOURS [facility] UltiCare No [facility] Swe tristian Pen Needle Pen Needle Pen Needle [facility] 32 gauge x 32 gauge x 32 gauge x ty " USE " USE " USE Hospita DIRECTED DIRECTED l WITH WITH DIRECTED Clinics INSULIN INSULIN WITH INJECTIONS INJECTIONS INSULIN INJECTIONS alprazolam alprazolam No alprazolam [place] 0.25 mg 0.25 mg 0.25 mg Commun i tablet TAKE tablet TAKE tablet ty 1 TABLET BY 1 TABLET BY TAKE 1 Hospita MOUTH EVERY MOUTH EVERY TABLET BY l NIGHT AT NIGHT AT MOUTH Clinic s BEDTIME BEDTIME EVERY NIGHT AT BEDTIME diphenoxyla diphenoxyla No diphenoxyl [place] te-atropine te-atropine ate-atropi Communi 2.5 2.5 ne 2.5 ty mg-0.025 mg mg-0.025 mg mg-0.025 Hospita tablet 2 tablet 2 mg tablet l tablets at tablets at 2 tablets Clinics first loose first loose at first stool, then stool, then loose 1 tablet 1 tablet stool, each each then 1 additional additional tablet loose stool loose stool each up to 6 up to 6 additional tablets tablets loose daily. as daily. as stool up needed. needed. to 6 tablets daily. as needed. duloxetine duloxetine No duloxetine [place] 30 mg 30 mg 30 mg [facility] capsule,del capsule,del capsule,de ty ayed ayed layed Hospita release release release l TAKE 1 TAKE 1 TAKE 1 Clinics CAPSULE BY CAPSULE BY CAPSULE BY MOUTH EVERY MOUTH EVERY MOUTH DAY DAY EVERY DAY ezetimibe ezetimibe No ezetimibe [place] 10 mg 10 mg 10 mg [facility] tablet TAKE tablet TAKE tablet ty 1 TABLET BY 1 TABLET BY TAKE 1 Hospita MOUTH EVERY MOUTH EVERY TABLET BY l DAY DAY MOUTH Clinics EVERY DAY Lantus Lantus No Lantus [place] Solostar Solostar Solostar Com shadi U-100 U-100 U-100 ty Insulin 100 Insulin 100 Insulin Hosp[facility] unit/mL (3 unit/mL (3 100 l mL) mL) unit/mL (3 Clinics subcutaneou subcutaneou mL) s pen s pen subcutaneo INJECT 80 INJECT 80 us pen UNITS UNDER UNITS UNDER INJECT 80 THE SKIN THE SKIN UNITS EVERY DAY EVERY DAY UNDER THE SKIN EVERY DAY lisinopril lisinopril No lisinopril [place] 10 mg 10 mg 10 mg [facility]i tablet TAKE tablet TAKE tablet ty 1 TABLET BY 1 TABLET BY TAKE 1 Hospita MOUTH ONCE MOUTH ONCE TABLET BY l EVERY DAY EVERY DAY MOUTH ONCE Clinics EVERY DAY meloxicam meloxicam No meloxicam [place] 7.5 mg 7.5 mg 7.5 mg [facility] tablet TAKE tablet TAKE tablet ty 1 TABLET BY 1 TABLET BY TAKE 1 Hospita MOUTH EVERY MOUTH EVERY TABLET BY l DAY WITH A DAY WITH A MOUTH Cl inics MEAL MEAL EVERY DAY WITH A MEAL [facility] Hospita l Clinics potassium potassium No potassium [place] chloride ER chloride ER chloride Communi 10 mEq 10 mEq ER 10 mEq ty tablet,exte tablet,exte tablet,ext Hospita nded nded ended l release release release Clinic s TAKE 1 TAKE 1 TAKE 1 TABLET BY TABLET BY TABLET BY MOUTH EVERY MOUTH EVERY MOUTH DAY DAY EVERY DAY Prolia 60 Prolia 60 No Prolia 60 [place] mg/mL mg/mL mg/mL Communi subcutaneou subcutaneou subcutaneo ty s syringe 1 s syringe 1 us syringe Hospita ML SUBQ ML SUBQ 1 ML SUBQ l every 6 every 6 every 6 Clinic s months / months / months / m81.0 m81.0 m81.0 osteoporosi osteoporosi osteoporos s / inj s / inj is / inj code 52852 code 11000 code 98238 Questran 4 Questran 4 No 1packet TID Questran 4 [place] gram powder gram powder (s) gram C ommuni for susp in for susp in powder for ty a packet a packet susp in a Ho spita Take 1 Take 1 packet l packet 3 packet 3 Take 1 Clini cs times a day times a day packet 3 by oral by oral times a route. route. day by oral route. sulfamethox sulfamethox No sulfametho [place] azole 800 azole 800 xazole 800 Communi mg-trimetho mg-trimetho mg-trimeth ty prim 160 mg prim 160 mg oprim 160 Hospita tablet TAKE tablet TAKE mg tablet l 1 TABLET BY 1 TABLET BY TAKE 1 Clinics MOUTH TWICE MOUTH TWICE TABLET BY DAILY FOR DAILY FOR MOUTH 10 DAYS 10 DAYS TWICE DAILY FOR 10 DAYS tramadol 50 tramadol 50 No tramadol [place] mg tablet mg tablet 50 mg Comm uni TAKE 1 TAKE 1 tablet ty TABLET BY TABLET BY TAKE 1 [facility] MOUTH EVERY MOUTH EVERY TABLET BY l 6 HOURS 6 HOURS MOUTH Clinics EVERY 6 HOURS [facility] UltiCare No UltiCare Swe tristian Pen Needle Pen Needle Pen Needle [facility] 32 gauge x 32 gauge x 32 gauge x ty " USE " USE " USE Hospita DIRECTED DIRECTED l WITH WITH DIRECTED Clinics INSULIN INSULIN WITH INJECTIONS INJECTIONS INSULIN INJECTIONS alprazolam alprazolam No alprazolam [place] 0.25 mg 0.25 mg 0.25 mg Commun i tablet TAKE tablet TAKE tablet ty 1 TABLET BY 1 TABLET BY TAKE 1 Hospita MOUTH EVERY MOUTH EVERY TABLET BY l NIGHT AT NIGHT AT MOUTH Clinic s BEDTIME BEDTIME EVERY NIGHT AT BEDTIME cholestyram cholestyram No cholestyra [place] ine (with ine (with mine (with Communi sugar) 4 sugar) 4 sugar) 4 ty gram powder gram powder gram H ospita for susp in for susp in powder for l a packet a packet susp in a Cl inics MIX AND MIX AND packet MIX DRINK 1 DRINK 1 AND DRINK PACKET BY PACKET BY 1 PACKET MOUTH THREE MOUTH THREE BY MOUTH TIMES DAILY TIMES DAILY THREE TIMES DAILY diphenoxyla diphenoxyla No diphenoxyl [place] te-atropine te-atropine ate-atropi Communi 2.5 2.5 ne 2.5 ty mg-0.025 mg mg-0.025 mg mg-0.025 Hospita tablet TAKE tablet TAKE mg tablet l 2 TABLETS 2 TABLETS TAKE 2 Cli nics BY MOUTH BY MOUTH TABLETS BY WITH 1ST WITH 1ST MOUTH WITH BOWEL BOWEL 1ST BOWEL MOVEMENT MOVEMENT MOVEMENT AND 1 AND 1 AND 1 TABLET WITH TABLET WITH TABLET ADDITIONAL ADDITIONAL WITH BOWEL BOWEL ADDITIONAL MOVEMENT MOVEMENT BOWEL FOR UP TO 5 FOR UP TO 5 MOVEMENT TABLETS PER TABLETS PER FOR UP TO DAY DAY 5 TABLETS PER DAY duloxetine duloxetine No duloxetine [place] 30 mg 30 mg 30 mg Communi capsule,del capsule,del capsule,de ty ayed ayed layed Hospita release release release l TAKE 1 TAKE 1 TAKE 1 Clinics CAPSULE BY CAPSULE BY CAPSULE BY MOUTH EVERY MOUTH EVERY MOUTH DAY DAY EVERY DAY ezetimibe ezetimibe No ezetimibe [place] 10 mg 10 mg 10 mg Communi tablet TAKE tablet TAKE tablet ty 1 TABLET BY 1 TABLET BY TAKE 1 Hospita MOUTH EVERY MOUTH EVERY TABLET BY l DAY DAY MOUTH Clinics EVERY DAY Lantus Lantus No Lantus [place] Solostar Solostar Solostar Com hsadi U-100 U-100 U-100 ty Insulin 100 Insulin 100 Insulin Hospita unit/mL (3 unit/mL (3 100 l mL) mL) unit/mL (3 Clinics subcutaneou subcutaneou mL) s pen s pen subcutaneo INJECT 80 INJECT 80 us pen UNITS UNDER UNITS UNDER INJECT 80 THE SKIN THE SKIN UNITS EVERY DAY EVERY DAY UNDER THE SKIN EVERY DAY lisinopril lisinopril No lisinopril [place] 10 mg 10 mg 10 mg Communi tablet TAKE tablet TAKE tablet ty 1 TABLET BY 1 TABLET BY TAKE 1 Hospita MOUTH ONCE MOUTH ONCE TABLET BY l EVERY DAY EVERY DAY MOUTH ONCE Clinics EVERY DAY meloxicam meloxicam No meloxicam [place] 7.5 mg 7.5 mg 7.5 mg Communi tablet TAKE tablet TAKE tablet ty 1 TABLET BY 1 TABLET BY TAKE 1 Hospita MOUTH EVERY MOUTH EVERY TABLET BY l DAY WITH A DAY WITH A MOUTH Cl inics MEAL MEAL EVERY DAY WITH A MEAL [facility] Com[facility] ni ty Hospita l Clinics potassium potassium No potassium [place] chloride ER chloride ER chloride Communi 10 mEq 10 mEq ER 10 mEq ty tablet,exte tablet,exte tablet,ext Hospita nded nded ended l release release release Clinic s TAKE 1 TAKE 1 TAKE 1 TABLET BY TABLET BY TABLET BY MOUTH EVERY MOUTH EVERY MOUTH DAY DAY EVERY DAY Prolia 60 Prolia 60 No Prolia 60 [place] mg/mL mg/mL mg/mL Communi subcutaneou subcutaneou subcutaneo ty s syringe 1 s syringe 1 us syringe Hospita ML SUBQ ML SUBQ 1 ML SUBQ l every 6 every 6 every 6 Clinic s months / months / months / m81.0 m81.0 m81.0 osteoporosi osteoporosi osteoporos s / inj s / inj is / inj code 17861 code 20750 code 14425 sulfamethox sulfamethox No sulfametho [place] azole 800 azole 800 xazole 800 Communi mg-trimetho mg-trimetho mg-trimeth ty prim 160 mg prim 160 mg oprim 160 Hospita tablet TAKE tablet TAKE mg tablet l 1 TABLET BY 1 TABLET BY TAKE 1 Clinics MOUTH TWICE MOUTH TWICE TABLET BY DAILY FOR DAILY FOR MOUTH 10 DAYS 10 DAYS TWICE DAILY FOR 10 DAYS tramadol 50 tramadol 50 No tramadol [place] mg tablet mg tablet 50 mg Comm uni TAKE 1 TAKE 1 tablet ty TABLET BY TABLET BY TAKE 1 [facility] [place] MOUTH EVERY MOUTH EVERY TABLET BY l 6 HOURS 6 HOURS MOUTH Clinics EVERY 6 HOURS [facility] No [facility] Swe tristian Pen Needle Pen Needle Pen Needle Communi 32 gauge x 32 gauge x 32 gauge x ty " USE " USE " USE Hospita DIRECTED DIRECTED l WITH WITH DIRECTED Clinics INSULIN INSULIN WITH INJECTIONS INJECTIONS INSULIN INJECTIONS alprazolam alprazolam No alprazolam [place] 0.25 mg 0.25 mg 0.25 mg Commun i tablet TAKE tablet TAKE tablet ty 1 TABLET BY 1 TABLET BY TAKE 1 Hospita MOUTH EVERY MOUTH EVERY TABLET BY l NIGHT AT NIGHT AT MOUTH Clinic s BEDTIME BEDTIME EVERY NIGHT AT BEDTIME cholestyram cholestyram No cholestyra [place] ine (with ine (with mine (with Communi sugar) 4 sugar) 4 sugar) 4 ty gram powder gram powder gram H [facility]spita for susp in for susp in powder for l a packet a packet susp in a Cl inics MIX AND MIX AND packet MIX DRINK 1 DRINK 1 AND DRINK PACKET BY PACKET BY 1 PACKET MOUTH THREE MOUTH THREE BY MOUTH TIMES DAILY TIMES DAILY THREE TIMES DAILY diphenoxyla diphenoxyla No diphenoxyl [place] te-atropine te-atropine ate-atropi Communi 2.5 2.5 ne 2.5 ty mg-0.025 mg mg-0.025 mg mg-0.025 Hospita tablet TAKE tablet TAKE mg tablet l 2 TABLETS 2 TABLETS TAKE 2 Cli nics BY MOUTH BY MOUTH TABLETS BY WITH 1ST WITH 1ST MOUTH WITH BOWEL BOWEL 1ST BOWEL MOVEMENT MOVEMENT MOVEMENT AND 1 AND 1 AND 1 TABLET WITH TABLET WITH TABLET ADDITIONAL ADDITIONAL WITH BOWEL BOWEL ADDITIONAL MOVEMENT MOVEMENT BOWEL FOR UP TO 5 FOR UP TO 5 MOVEMENT TABLETS PER TABLETS PER FOR UP TO DAY DAY 5 TABLETS PER DAY duloxetine duloxetine No duloxetine [place] 30 mg 30 mg 30 mg Communi capsule,del capsule,del capsule,de ty ayed ayed layed Hospita release release release l TAKE 1 TAKE 1 TAKE 1 Clinics CAPSULE BY CAPSULE BY CAPSULE BY MOUTH EVERY MOUTH EVERY MOUTH DAY DAY EVERY DAY ezetimibe ezetimibe No ezetimibe [place] 10 mg 10 mg 10 mg Communi tablet TAKE tablet TAKE tablet ty 1 TABLET BY 1 TABLET BY TAKE 1 Hospita MOUTH EVERY MOUTH EVERY TABLET BY l DAY DAY MOUTH Clinics EVERY DAY Lantus Lantus No Lantus [place] Solostar Solostar Solostar Com shadi U-100 U-100 U-100 ty Insulin 100 Insulin 100 Insulin Hospita unit/mL (3 unit/mL (3 100 l mL) mL) unit/mL (3 Clinics subcutaneou subcutaneou mL) s pen s pen subcutaneo ADMINISTER ADMINISTER us pen 80 UNITS 80 UNITS ADMINISTER UNDER THE UNDER THE 80 UNITS SKIN EVERY SKIN EVERY UNDER THE DAY DAY SKIN EVERY DAY lisinopril lisinopril No lisinopril [place] 10 mg 10 mg 10 mg Communi tablet TAKE tablet TAKE tablet ty 1 TABLET BY 1 TABLET BY TAKE 1 Hospita MOUTH ONCE MOUTH ONCE TABLET BY l EVERY DAY EVERY DAY MOUTH ONCE Clinics EVERY DAY meloxicam meloxicam No meloxicam [place] 7.5 mg 7.5 mg 7.5 mg Communi tablet TAKE tablet TAKE tablet ty 1 TABLET BY 1 TABLET BY TAKE 1 Hospita MOUTH EVERY MOUTH EVERY TABLET BY l DAY WITH A DAY WITH A MOUTH Cl inics MEAL MEAL EVERY DAY WITH A MEAL [facility] Commu ni ty Hospita l Clinics potassium potassium No potassium [place] chloride ER chloride ER chloride Communi 10 mEq 10 mEq ER 10 mEq ty tablet,exte tablet,exte tablet,ext Hospita nded nded ended l release release release Clinic s TAKE 1 TAKE 1 TAKE 1 TABLET BY TABLET BY TABLET BY MOUTH EVERY MOUTH EVERY MOUTH DAY DAY EVERY DAY Prolia 60 Prolia 60 No Prolia 60 [place] mg/mL mg/mL mg/mL Communi subcutaneou subcutaneou subcutaneo ty s syringe 1 s syringe 1 us syringe Hospita ML SUBQ ML SUBQ 1 ML SUBQ l every 6 every 6 every 6 Clinic s months / months / months / m81.0 m81.0 m81.0 osteoporosi osteoporosi osteoporos s / inj s / inj is / inj code 87472 code 53727 code 17770 tramadol 50 tramadol 50 No tramadol [place] mg tablet mg tablet 50 mg Comm uni TAKE 1 TAKE 1 tablet ty TABLET BY TABLET BY TAKE 1 [facility] MOUTH EVERY MOUTH EVERY TABLET BY l 6 HOURS 6 HOURS MOUTH Clinics EVERY 6 HOURS [facility] No [facility] Swe tristian Pen Needle Pen Needle Pen Needle [facility]i 32 gauge x 32 gauge x 32 gauge x ty " USE " USE " USE Hospita DIRECTED DIRECTED l WITH WITH DIRECTED Clinics INSULIN INSULIN WITH INJECTIONS INJECTIONS INSULIN INJECTIONS alprazolam alprazolam No alprazolam [place] 0.25 mg 0.25 mg 0.25 mg Commun i tablet TAKE tablet TAKE tablet ty 1 TABLET BY 1 TABLET BY TAKE 1 Hospita MOUTH EVERY MOUTH EVERY TABLET BY l NIGHT AT NIGHT AT MOUTH Clinic s BEDTIME BEDTIME EVERY NIGHT AT BEDTIME buspirone 5 buspirone 5 No buspirone [place] mg tablet mg tablet 5 mg Commu ni TAKE 1 TAKE 1 tablet ty TABLET BY TABLET BY TAKE 1 [facility] MOUTH TWICE MOUTH TWICE TABLET BY l DAILY DAILY MOUTH Clinic s NEEDED NEEDED TWICE DAILY NEEDED cholestyram cholestyram No cholestyra [place] ine (with ine (with mine (with [facility]i sugar) 4 sugar) 4 sugar) 4 ty gram powder gram powder gram H [facility]spita for susp in for susp in powder for l a packet a packet susp in a Cl inics MIX AND MIX AND packet MIX DRINK 1 DRINK 1 AND DRINK PACKET BY PACKET BY 1 PACKET MOUTH THREE MOUTH THREE BY MOUTH TIMES DAILY TIMES DAILY THREE TIMES DAILY cyanocobala cyanocobala No 1mL cyanocobal [place] min (vit min (vit villafana (vit Co mmuni B-12) 1,000 B-12) 1,000 B-12) ty mcg/mL mcg/mL 1,000 Hospita injection injection mcg/mL l solution solution injection Cl inics Inject 1 mL Inject 1 mL solution every month every month Inject 1 by by mL every subcutaneou subcutaneou month by s route. s route. subcutaneo us route. diphenoxyla diphenoxyla No diphenoxyl [place] te-atropine te-atropine ate-atropi Communi 2.5 2.5 ne 2.5 ty mg-0.025 mg mg-0.025 mg mg-0.025 Hospita tablet TAKE tablet TAKE mg tablet l 2 TABLETS 2 TABLETS TAKE 2 Cli nics BY MOUTH BY MOUTH TABLETS BY WITH 1ST WITH 1ST MOUTH WITH BOWEL BOWEL 1ST BOWEL MOVEMENT MOVEMENT MOVEMENT AND 1 AND 1 AND 1 TABLET WITH TABLET WITH TABLET ADDITIONAL ADDITIONAL WITH BOWEL BOWEL ADDITIONAL MOVEMENT MOVEMENT BOWEL FOR UP TO 5 FOR UP TO 5 MOVEMENT TABLETS PER TABLETS PER FOR UP TO DAY DAY 5 TABLETS PER DAY duloxetine duloxetine No duloxetine [place] 30 mg 30 mg 30 mg [facility] capsule,del capsule,del capsule,de ty ayed ayed layed Hospita release release release l TAKE 1 TAKE 1 TAKE 1 Clinics CAPSULE BY CAPSULE BY CAPSULE BY MOUTH EVERY MOUTH EVERY MOUTH DAY DAY EVERY DAY ezetimibe ezetimibe No ezetimibe [place] 10 mg 10 mg 10 mg Communi tablet TAKE tablet TAKE tablet ty 1 TABLET BY 1 TABLET BY TAKE 1 Hospita MOUTH EVERY MOUTH EVERY TABLET BY l DAY DAY MOUTH Clinics EVERY DAY Lantus Lantus No Lantus [place] Solostar Solostar Solostar Com shadi U-100 U-100 U-100 ty Insulin 100 Insulin 100 Insulin Hospita unit/mL (3 unit/mL (3 100 l mL) mL) unit/mL (3 Clinics subcutaneou subcutaneou mL) s pen s pen subcutaneo ADMINISTER ADMINISTER us pen 80 UNITS 80 UNITS ADMINISTER UNDER THE UNDER THE 80 UNITS SKIN EVERY SKIN EVERY UNDER THE DAY DAY SKIN EVERY DAY lisinopril lisinopril No lisinopril [place] 10 mg 10 mg 10 mg Communi tablet TAKE tablet TAKE tablet ty 1 TABLET BY 1 TABLET BY TAKE 1 Hospita MOUTH ONCE MOUTH ONCE TABLET BY l EVERY DAY EVERY DAY MOUTH ONCE Clinics EVERY DAY meloxicam meloxicam No meloxicam [place] 7.5 mg 7.5 mg 7.5 mg [facility] tablet TAKE tablet TAKE tablet ty 1 TABLET BY 1 TABLET BY TAKE 1 Hospita MOUTH EVERY MOUTH EVERY TABLET BY l DAY WITH A DAY WITH A MOUTH Cl inics MEAL MEAL EVERY DAY WITH A MEAL nitrofurant nitrofurant No nitrofuran [place] oin oin toin Communi monohydrate monohydrate monohydrat ty /macrocryst /macrocryst e/macrocry Hospita als 100 mg als 100 mg stals 100 l capsule capsule mg capsule Cli nics TAKE 1 TAKE 1 TAKE 1 CAPSULE BY CAPSULE BY CAPSULE BY MOUTH TWICE MOUTH TWICE MOUTH DAILY FOR DAILY FOR TWICE 10 DAYS 10 DAYS DAILY FOR 10 DAYS [facility] Commu ni ty Hospita l Clinics potassium potassium No potassium [place] chloride ER chloride ER chloride Communi 10 mEq 10 mEq ER 10 mEq ty tablet,exte tablet,exte tablet,ext Hospita nded nded ended l release release release Clinic s TAKE 1 TAKE 1 TAKE 1 TABLET BY TABLET BY TABLET BY MOUTH EVERY MOUTH EVERY MOUTH DAY DAY EVERY DAY Prolia 60 Prolia 60 No Prolia 60 [place] mg/mL mg/mL mg/mL Communi subcutaneou subcutaneou subcutaneo ty s syringe 1 s syringe 1 us syringe Hospita ML SUBQ ML SUBQ 1 ML SUBQ l every 6 every 6 every 6 Clinic s months / months / months / m81.0 m81.0 m81.0 osteoporosi osteoporosi osteoporos s / inj s / inj is / inj code 03471 code 92057 code 38523 tramadol 50 tramadol 50 No tramadol [place] mg tablet mg tablet 50 mg Comm uni TAKE 1 TAKE 1 tablet ty TABLET BY TABLET BY TAKE 1 [facility] MOUTH EVERY MOUTH EVERY TABLET BY l 6 HOURS 6 HOURS MOUTH Clinics EVERY 6 HOURS [facility] No [facility] Swe tristian Pen Needle Pen Needle Pen Needle Communi 32 gauge x 32 gauge x 32 gauge x ty " USE " USE " USE Hospita DIRECTED DIRECTED l WITH WITH DIRECTED Clinics INSULIN INSULIN WITH INJECTIONS INJECTIONS INSULIN INJECTIONS alprazolam alprazolam No alprazolam [place] 0.25 mg 0.25 mg 0.25 mg Commun i tablet TAKE tablet TAKE tablet ty 1 TABLET BY 1 TABLET BY TAKE 1 Hospita MOUTH EVERY MOUTH EVERY TABLET BY l NIGHT AT NIGHT AT MOUTH Clinic s BEDTIME BEDTIME EVERY NIGHT AT BEDTIME buspirone 5 buspirone 5 No buspirone [place] mg tablet mg tablet 5 mg Commu ni TAKE 1 TAKE 1 tablet ty TABLET BY TABLET BY TAKE 1 [facility] MOUTH TWICE MOUTH TWICE TABLET BY l DAILY DAILY MOUTH Clinic s NEEDED NEEDED TWICE DAILY NEEDED cholestyram cholestyram No cholestyra [place] ine (with ine (with mine (with Commun[facility] sugar) 4 sugar) 4 sugar) 4 ty gram powder gram powder gram H ospita for susp in for susp in powder for l a packet a packet susp in a Cl inics MIX AND MIX AND packet MIX DRINK 1 DRINK 1 AND DRINK PACKET BY PACKET BY 1 PACKET MOUTH THREE MOUTH THREE BY MOUTH TIMES DAILY TIMES DAILY THREE TIMES DAILY cyanocobala cyanocobala No 1mL cyanocobal [place] min (vit min (vit villafana (vit Co mmuni B-12) 1,000 B-12) 1,000 B-12) ty mcg/mL mcg/mL 1,000 Hospita injection injection mcg/mL l solution solution injection Cl inics Inject 1 mL Inject 1 mL solution every month every month Inject 1 by by mL every subcutaneou subcutaneou month by s route. s route. subcutaneo us route. diphenoxyla diphenoxyla No diphenoxyl [place] te-atropine te-atropine ate-atropi Communi 2.5 2.5 ne 2.5 ty mg-0.025 mg mg-0.025 mg mg-0.025 Hospita tablet TAKE tablet TAKE mg tablet l 2 TABLETS 2 TABLETS TAKE 2 Cli nics BY MOUTH BY MOUTH TABLETS BY WITH 1ST WITH 1ST MOUTH WITH BOWEL BOWEL 1ST BOWEL MOVEMENT MOVEMENT MOVEMENT AND 1 AND 1 AND 1 TABLET WITH TABLET WITH TABLET ADDITIONAL ADDITIONAL WITH BOWEL BOWEL ADDITIONAL MOVEMENT MOVEMENT BOWEL FOR UP TO 5 FOR UP TO 5 MOVEMENT TABLETS PER TABLETS PER FOR UP TO DAY DAY 5 TABLETS PER DAY duloxetine duloxetine No duloxetine [place] 30 mg 30 mg 30 mg [facility] capsule,del capsule,del capsule,de ty ayed ayed layed Hospita release release release l TAKE 1 TAKE 1 TAKE 1 Clinics CAPSULE BY CAPSULE BY CAPSULE BY MOUTH EVERY MOUTH EVERY MOUTH DAY DAY EVERY DAY ezetimibe ezetimibe No ezetimibe [place] 10 mg 10 mg 10 mg Communi tablet TAKE tablet TAKE tablet ty 1 TABLET BY 1 TABLET BY TAKE 1 Hospita MOUTH EVERY MOUTH EVERY TABLET BY l DAY DAY MOUTH Clinics EVERY DAY Lantus Lantus No Lantus [place] Solostar Solostar Solostar Com shadi U-100 U-100 U-100 ty Insulin 100 Insulin 100 Insulin Hospita unit/mL (3 unit/mL (3 100 l mL) mL) unit/mL (3 Clinics subcutaneou subcutaneou mL) s pen s pen subcutaneo ADMINISTER ADMINISTER us pen 80 UNITS 80 UNITS ADMINISTER UNDER THE UNDER THE 80 UNITS SKIN EVERY SKIN EVERY UNDER THE DAY DAY SKIN EVERY DAY lisinopril lisinopril No 1 Q1D lisinopril [place] 5 mg tablet 5 mg tablet 5 mg C ommuni Take 1 Take 1 tablet ty tablet tablet Take 1 Hospita every day every day tablet l by oral by oral every day Clin ics route. route. by oral route. meloxicam meloxicam No meloxicam [place] 7.5 mg 7.5 mg 7.5 mg [facility] tablet TAKE tablet TAKE tablet ty 1 TABLET BY 1 TABLET BY TAKE 1 Hospita MOUTH EVERY MOUTH EVERY TABLET BY l DAY WITH A DAY WITH A MOUTH Cl inics MEAL MEAL EVERY DAY WITH A MEAL nitrofurant nitrofurant No nitrofuran [place] oin oin toin Communi monohydrate monohydrate monohydrat ty /macrocryst /macrocryst e/macrocry Hospita als 100 mg als 100 mg stals 100 l capsule capsule mg capsule Cli nics TAKE 1 TAKE 1 TAKE 1 CAPSULE BY CAPSULE BY CAPSULE BY MOUTH TWICE MOUTH TWICE MOUTH DAILY FOR DAILY FOR TWICE 10 DAYS 10 DAYS DAILY FOR 10 DAYS [facility] Com[facility] ni [facility] l Clinics potassium potassium No potassium [place] chloride ER chloride ER chloride Commun[facility] 10 mEq 10 mEq ER 10 mEq ty tablet,exte tablet,exte tablet,ext [facility]ospita nded nded ended l release release release Clinic s TAKE 1 TAKE 1 TAKE 1 TABLET BY TABLET BY TABLET BY MOUTH EVERY MOUTH EVERY MOUTH DAY DAY EVERY DAY Prolia 60 Prolia 60 No Prolia 60 [place] mg/mL mg/mL mg/mL Communi subcutaneou subcutaneou subcutaneo ty s syringe 1 s syringe 1 us syringe Hospita ML SUBQ ML SUBQ 1 ML SUBQ l every 6 every 6 every 6 Clinic s months / months / months / m81.0 m81.0 m81.0 osteoporosi osteoporosi osteoporos s / inj s / inj is / inj code 26617 code 74297 code 65982 tramadol 50 tramadol 50 No tramadol [place] mg tablet mg tablet 50 mg Comm uni TAKE 1 TAKE 1 tablet ty TABLET BY TABLET BY TAKE 1 [facility] MOUTH EVERY MOUTH EVERY TABLET BY l 6 HOURS 6 HOURS MOUTH Clinics EVERY 6 HOURS [facility] No [facility] Swe tristian Pen Needle Pen Needle Pen Needle [facility]i 32 gauge x 32 gauge x 32 gauge x ty " USE " USE " USE Hospita DIRECTED DIRECTED l WITH WITH DIRECTED Clinics INSULIN INSULIN WITH INJECTIONS INJECTIONS INSULIN INJECTIONS alprazolam alprazolam No alprazolam [place] 0.25 mg 0.25 mg 0.25 mg Commun i tablet TAKE tablet TAKE tablet ty 1 TABLET BY 1 TABLET BY TAKE 1 Hospita MOUTH EVERY MOUTH EVERY TABLET BY l NIGHT AT NIGHT AT MOUTH Clinic s BEDTIME BEDTIME EVERY NIGHT AT BEDTIME buspirone 5 buspirone 5 No buspirone [place] mg tablet mg tablet 5 mg Commu ni TAKE 1 TAKE 1 tablet ty TABLET BY TABLET BY TAKE 1 [facility] MOUTH TWICE MOUTH TWICE TABLET BY l DAILY DAILY MOUTH Clinic s NEEDED NEEDED TWICE DAILY NEEDED cholestyram cholestyram No cholestyra [place] ine (with ine (with mine (with Commun[facility] sugar) 4 sugar) 4 sugar) 4 ty gram powder gram powder gram H [facility]spita for susp in for susp in powder for l a packet a packet susp in a Cl inics MIX AND MIX AND packet MIX DRINK 1 DRINK 1 AND DRINK PACKET BY PACKET BY 1 PACKET MOUTH THREE MOUTH THREE BY MOUTH TIMES DAILY TIMES DAILY THREE TIMES DAILY cyanocobala cyanocobala No 1mL cyanocobal [place] min (vit min (vit villafana (vit Co mmuni B-12) 1,000 B-12) 1,000 B-12) ty mcg/mL mcg/mL 1,000 Hospita injection injection mcg/mL l solution solution injection Cl inics Inject 1 mL Inject 1 mL solution every month every month Inject 1 by by mL every subcutaneou subcutaneou month by s route. s route. subcutaneo us route. diphenoxyla diphenoxyla No diphenoxyl [place] te-atropine te-atropine ate-atropi Communi 2.5 2.5 ne 2.5 ty mg-0.025 mg mg-0.025 mg mg-0.025 Hospita tablet TAKE tablet TAKE mg tablet l 2 TABLETS 2 TABLETS TAKE 2 Cli nics BY MOUTH BY MOUTH TABLETS BY WITH 1ST WITH 1ST MOUTH WITH BOWEL BOWEL 1ST BOWEL MOVEMENT MOVEMENT MOVEMENT AND 1 AND 1 AND 1 TABLET WITH TABLET WITH TABLET ADDITIONAL ADDITIONAL WITH BOWEL BOWEL ADDITIONAL MOVEMENT MOVEMENT BOWEL FOR UP TO 5 FOR UP TO 5 MOVEMENT TABLETS PER TABLETS PER FOR UP TO DAY DAY 5 TABLETS PER DAY duloxetine duloxetine No duloxetine [place] 30 mg 30 mg 30 mg [facility] capsule,del capsule,del capsule,de ty ayed ayed layed Hospita release release release l TAKE 1 TAKE 1 TAKE 1 Clinics CAPSULE BY CAPSULE BY CAPSULE BY MOUTH EVERY MOUTH EVERY MOUTH DAY DAY EVERY DAY ezetimibe ezetimibe No ezetimibe [place] 10 mg 10 mg 10 mg Communi tablet TAKE tablet TAKE tablet ty 1 TABLET BY 1 TABLET BY TAKE 1 Hospita MOUTH EVERY MOUTH EVERY TABLET BY l DAY DAY MOUTH Clinics EVERY DAY Lantus Lantus No Lantus [place] Solostar Solostar Solostar Com shadi U-100 U-100 U-100 ty Insulin 100 Insulin 100 Insulin Hospita unit/mL (3 unit/mL (3 100 l mL) mL) unit/mL (3 Clinics subcutaneou subcutaneou mL) s pen s pen subcutaneo ADMINISTER ADMINISTER us pen 80 UNITS 80 UNITS ADMINISTER UNDER THE UNDER THE 80 UNITS SKIN EVERY SKIN EVERY UNDER THE DAY DAY SKIN EVERY DAY lisinopril lisinopril No lisinopril [place] 5 mg tablet 5 mg tablet 5 mg C [facility] TAKE 1 TAKE 1 tablet ty TABLET BY TABLET BY TAKE 1 [facility] MOUTH EVERY MOUTH EVERY TABLET BY l DAY DAY MOUTH Clinics EVERY DAY meloxicam meloxicam No meloxicam [place] 7.5 mg 7.5 mg 7.5 mg [facility] tablet TAKE tablet TAKE tablet ty 1 TABLET BY 1 TABLET BY TAKE 1 Hospita MOUTH EVERY MOUTH EVERY TABLET BY l DAY WITH A DAY WITH A MOUTH Cl inics MEAL MEAL EVERY DAY WITH A MEAL methylpredn methylpredn No methylpred [place] isolone 4 isolone 4 nisolone 4 Communi mg tablets mg tablets mg tablets ty in a dose in a dose in a dose Hospita pack FOLLOW pack FOLLOW pack l PACKAGE PACKAGE FOLLOW Clinics DIRECTIONS DIRECTIONS PACKAGE DIRECTIONS nitrofurant nitrofurant No nitrofuran [place] oin oin toin Communi monohydrate monohydrate monohydrat ty /macrocryst /macrocryst e/macrocry Hospita als 100 mg als 100 mg stals 100 l capsule capsule mg capsule Cli nics TAKE 1 TAKE 1 TAKE 1 CAPSULE BY CAPSULE BY CAPSULE BY MOUTH TWICE MOUTH TWICE MOUTH DAILY FOR DAILY FOR TWICE 10 DAYS 10 DAYS DAILY FOR 10 DAYS [facility] potassium potassium No potassium [place] chloride ER chloride ER chloride Communi 10 mEq 10 mEq ER 10 mEq ty tablet,exte tablet,exte tablet,ext [facility]ospita nded nded ended l release release release Clinic s TAKE 1 TAKE 1 TAKE 1 TABLET BY TABLET BY TABLET BY MOUTH EVERY MOUTH EVERY MOUTH DAY DAY EVERY DAY Prolia 60 Prolia 60 No Prolia 60 [place] mg/mL mg/mL mg/mL Communi subcutaneou subcutaneou subcutaneo ty s syringe 1 s syringe 1 us syringe Hospita ML SUBQ ML SUBQ 1 ML SUBQ l every 6 every 6 every 6 Clinic s months / months / months / m81.0 m81.0 m81.0 osteoporosi osteoporosi osteoporos s / inj s / inj is / inj code 63515 code 55479 code 41655 tramadol 50 tramadol 50 No tramadol [place] mg tablet mg tablet 50 mg Comm uni TAKE 1 TAKE 1 tablet ty TABLET BY TABLET BY TAKE 1 [facility] MOUTH EVERY MOUTH EVERY TABLET BY l 6 HOURS 6 HOURS MOUTH Clinics EVERY 6 HOURS [facility] No [facility] Swe tristian Pen Needle Pen Needle Pen Needle Communi 32 gauge x 32 gauge x 32 gauge x ty " USE " USE " USE Hospita DIRECTED DIRECTED l WITH WITH DIRECTED Clinics INSULIN INSULIN WITH INJECTIONS INJECTIONS INSULIN INJECTIONS alprazolam alprazolam No alprazolam [place] 0.25 mg 0.25 mg 0.25 mg Commun i tablet TAKE tablet TAKE tablet ty 1 TABLET BY 1 TABLET BY TAKE 1 Hospita MOUTH EVERY MOUTH EVERY TABLET BY l NIGHT AT NIGHT AT MOUTH Clinic s BEDTIME BEDTIME EVERY NIGHT AT BEDTIME buspirone 5 buspirone 5 No buspirone [place] mg tablet mg tablet 5 mg Commu ni TAKE 1 TAKE 1 tablet ty TABLET BY TABLET BY TAKE 1 [facility] MOUTH TWICE MOUTH TWICE TABLET BY l DAILY DAILY MOUTH Clinic s NEEDED NEEDED TWICE DAILY NEEDED cholestyram cholestyram No cholestyra [place] ine (with ine (with mine (with Communi sugar) 4 sugar) 4 sugar) 4 ty gram powder gram powder gram H [facility] for susp in for susp in powder for l a packet a packet susp in a Cl inics MIX AND MIX AND packet MIX DRINK 1 DRINK 1 AND DRINK PACKET BY PACKET BY 1 PACKET MOUTH THREE MOUTH THREE BY MOUTH TIMES DAILY TIMES DAILY THREE TIMES DAILY cyanocobala cyanocobala No 1mL cyanocobal [place] min (vit min (vit villafana (vit Co mmuni B-12) 1,000 B-12) 1,000 B-12) ty mcg/mL mcg/mL 1,000 Hospita injection injection mcg/mL l solution solution injection Cl inics Inject 1 mL Inject 1 mL solution every month every month Inject 1 by by mL every subcutaneou subcutaneou month by s route. s route. subcutaneo us route. diphenoxyla diphenoxyla No diphenoxyl [place] te-atropine te-atropine ate-atropi Communi 2.5 2.5 ne 2.5 ty mg-0.025 mg mg-0.025 mg mg-0.025 Hospita tablet TAKE tablet TAKE mg tablet l 2 TABLETS 2 TABLETS TAKE 2 Cli nics BY MOUTH BY MOUTH TABLETS BY WITH 1ST WITH 1ST MOUTH WITH BOWEL BOWEL 1ST BOWEL MOVEMENT MOVEMENT MOVEMENT AND 1 AND 1 AND 1 TABLET WITH TABLET WITH TABLET ADDITIONAL ADDITIONAL WITH BOWEL BOWEL ADDITIONAL MOVEMENT MOVEMENT BOWEL FOR UP TO 5 FOR UP TO 5 MOVEMENT TABLETS PER TABLETS PER FOR UP TO DAY DAY 5 TABLETS PER DAY duloxetine duloxetine No duloxetine [place] 30 mg 30 mg 30 mg Communi capsule,del capsule,del capsule,de ty ayed ayed layed Hospita release release release l TAKE 1 TAKE 1 TAKE 1 Clinics CAPSULE BY CAPSULE BY CAPSULE BY MOUTH EVERY MOUTH EVERY MOUTH DAY DAY EVERY DAY ezetimibe ezetimibe No ezetimibe [place] 10 mg 10 mg 10 mg Communi tablet TAKE tablet TAKE tablet ty 1 TABLET BY 1 TABLET BY TAKE 1 Hospita MOUTH EVERY MOUTH EVERY TABLET BY l DAY DAY MOUTH Clinics EVERY DAY Lantus Lantus No Lantus [place] Solostar Solostar Solostar Com shadi U-100 U-100 U-100 ty Insulin 100 Insulin 100 Insulin Hospita unit/mL (3 unit/mL (3 100 l mL) mL) unit/mL (3 Clinics subcutaneou subcutaneou mL) s pen s pen subcutaneo ADMINISTER ADMINISTER us pen 80 UNITS 80 UNITS ADMINISTER UNDER THE UNDER THE 80 UNITS SKIN EVERY SKIN EVERY UNDER THE DAY DAY SKIN EVERY DAY lisinopril lisinopril No lisinopril [place] 5 mg tablet 5 mg tablet 5 mg C [facility] TAKE 1 TAKE 1 tablet ty TABLET BY TABLET BY TAKE 1 [facility] MOUTH EVERY MOUTH EVERY TABLET BY l DAY DAY MOUTH Clinics EVERY DAY meloxicam meloxicam No meloxicam [place] 7.5 mg 7.5 mg 7.5 mg Communi tablet TAKE tablet TAKE tablet ty 1 TABLET BY 1 TABLET BY TAKE 1 Hospita MOUTH EVERY MOUTH EVERY TABLET BY l DAY WITH A DAY WITH A MOUTH Cl inics MEAL MEAL EVERY DAY WITH A MEAL methylpredn methylpredn No methylpred [place] isolone 4 isolone 4 nisolone 4 Communi mg tablets mg tablets mg tablets ty in a dose in a dose in a dose Hospita pack FOLLOW pack FOLLOW pack l PACKAGE PACKAGE FOLLOW Clinics DIRECTIONS DIRECTIONS PACKAGE DIRECTIONS nitrofurant nitrofurant No nitrofuran [place] oin oin toin Communi monohydrate monohydrate monohydrat ty /macrocryst /macrocryst e/macrocry Hospita als 100 mg als 100 mg stals 100 l capsule capsule mg capsule Cli nics TAKE 1 TAKE 1 TAKE 1 CAPSULE BY CAPSULE BY CAPSULE BY MOUTH TWICE MOUTH TWICE MOUTH DAILY FOR DAILY FOR TWICE 10 DAYS 10 DAYS DAILY FOR 10 DAYS [facility] l Clinics potassium potassium No potassium [place] chloride ER chloride ER chloride Communi 10 mEq 10 mEq ER 10 mEq ty tablet,exte tablet,exte tablet,ext [facility]ospita nded nded ended l release release release Clinic s TAKE 1 TAKE 1 TAKE 1 TABLET BY TABLET BY TABLET BY MOUTH EVERY MOUTH EVERY MOUTH DAY DAY EVERY DAY Prolia 60 Prolia 60 No Prolia 60 [place] mg/mL mg/mL mg/mL Communi subcutaneou subcutaneou subcutaneo ty s syringe 1 s syringe 1 us syringe Hospita ML SUBQ ML SUBQ 1 ML SUBQ l every 6 every 6 every 6 Clinic s months / months / months / m81.0 m81.0 m81.0 osteoporosi osteoporosi osteoporos s / inj s / inj is / inj code 25446 code 65108 code 45451 tramadol 50 tramadol 50 No tramadol [place] mg tablet mg tablet 50 mg Comm uni TAKE 1 TAKE 1 tablet ty TABLET BY TABLET BY TAKE 1 [facility] MOUTH EVERY MOUTH EVERY TABLET BY l 6 HOURS 6 HOURS MOUTH Clinics EVERY 6 HOURS [facility] No [facility] Swe tristian Pen Needle Pen Needle Pen Needle Communi 32 gauge x 32 gauge x 32 gauge x ty " USE " USE " USE Hospita DIRECTED DIRECTED l WITH WITH DIRECTED Clinics INSULIN INSULIN WITH INJECTIONS INJECTIONS INSULIN INJECTIONS alprazolam alprazolam No alprazolam [place] 0.25 mg 0.25 mg 0.25 mg Commun i tablet TAKE tablet TAKE tablet ty 1 TABLET BY 1 TABLET BY TAKE 1 Hospita MOUTH EVERY MOUTH EVERY TABLET BY l NIGHT AT NIGHT AT MOUTH Clinic s BEDTIME BEDTIME EVERY NIGHT AT BEDTIME buspirone 5 buspirone 5 No buspirone [place] mg tablet mg tablet 5 mg Commu ni TAKE 1 TAKE 1 tablet ty TABLET BY TABLET BY TAKE 1 [facility] MOUTH TWICE MOUTH TWICE TABLET BY l DAILY DAILY MOUTH Clinic s NEEDED NEEDED TWICE DAILY NEEDED cholestyram cholestyram No cholestyra [place] ine (with ine (with mine (with Communi sugar) 4 sugar) 4 sugar) 4 ty gram powder gram powder gram [facility] for susp in for susp in powder for l a packet a packet susp in a Cl inics MIX AND MIX AND packet MIX DRINK 1 DRINK 1 AND DRINK PACKET BY PACKET BY 1 PACKET MOUTH THREE MOUTH THREE BY MOUTH TIMES DAILY TIMES DAILY THREE TIMES DAILY cyanocobala cyanocobala No 1mL cyanocobal [place] min (vit min (vit villafana (vit Co mmuni B-12) 1,000 B-12) 1,000 B-12) ty mcg/mL mcg/mL 1,000 Hospita injection injection mcg/mL l solution solution injection Cl inics Inject 1 mL Inject 1 mL solution every month every month Inject 1 by by mL every subcutaneou subcutaneou month by s route. s route. subcutaneo us route. diphenoxyla diphenoxyla No diphenoxyl [place] te-atropine te-atropine ate-atropi Communi 2.5 2.5 ne 2.5 ty mg-0.025 mg mg-0.025 mg mg-0.025 Hospita tablet TAKE tablet TAKE mg tablet l 2 TABLETS 2 TABLETS TAKE 2 Cli nics BY MOUTH BY MOUTH TABLETS BY WITH 1ST WITH 1ST MOUTH WITH BOWEL BOWEL 1ST BOWEL MOVEMENT MOVEMENT MOVEMENT AND 1 AND 1 AND 1 TABLET WITH TABLET WITH TABLET ADDITIONAL ADDITIONAL WITH BOWEL BOWEL ADDITIONAL MOVEMENT MOVEMENT BOWEL FOR UP TO 5 FOR UP TO 5 MOVEMENT TABLETS PER TABLETS PER FOR UP TO DAY DAY 5 TABLETS PER DAY duloxetine duloxetine No duloxetine [place] 30 mg 30 mg 30 mg Communi capsule,del capsule,del capsule,de ty ayed ayed layed Hospita release release release l TAKE 1 TAKE 1 TAKE 1 Clinics CAPSULE BY CAPSULE BY CAPSULE BY MOUTH EVERY MOUTH EVERY MOUTH DAY DAY EVERY DAY ezetimibe ezetimibe No ezetimibe [place] 10 mg 10 mg 10 mg Communi tablet TAKE tablet TAKE tablet ty 1 TABLET BY 1 TABLET BY TAKE 1 Hospita MOUTH EVERY MOUTH EVERY TABLET BY l DAY DAY MOUTH Clinics EVERY DAY Lantus Lantus No Lantus [place] Solostar Solostar Solostar Com shadi U-100 U-100 U-100 ty Insulin 100 Insulin 100 Insulin Hospita unit/mL (3 unit/mL (3 100 l mL) mL) unit/mL (3 Clinics subcutaneou subcutaneou mL) s pen s pen subcutaneo ADMINISTER ADMINISTER us pen 80 UNITS 80 UNITS ADMINISTER UNDER THE UNDER THE 80 UNITS SKIN EVERY SKIN EVERY UNDER THE DAY DAY SKIN EVERY DAY lisinopril lisinopril No lisinopril [place] 5 mg tablet 5 mg tablet 5 mg C [facility] TAKE 1 TAKE 1 tablet ty TABLET BY TABLET BY TAKE 1 [facility] MOUTH EVERY MOUTH EVERY TABLET BY l DAY DAY MOUTH Clinics EVERY DAY meloxicam meloxicam No meloxicam [place] 7.5 mg 7.5 mg 7.5 mg Communi tablet TAKE tablet TAKE tablet ty 1 TABLET BY 1 TABLET BY TAKE 1 Hospita MOUTH EVERY MOUTH EVERY TABLET BY l DAY WITH A DAY WITH A MOUTH Cl inics MEAL MEAL EVERY DAY WITH A MEAL nitrofurant nitrofurant No nitrofuran [place] oin oin toin Communi monohydrate monohydrate monohydrat ty /macrocryst /macrocryst e/macrocry Hospita als 100 mg als 100 mg stals 100 l capsule capsule mg capsule Cli nics TAKE 1 TAKE 1 TAKE 1 CAPSULE BY CAPSULE BY CAPSULE BY MOUTH TWICE MOUTH TWICE MOUTH DAILY FOR DAILY FOR TWICE 10 DAYS 10 DAYS DAILY FOR 10 DAYS [facility] Commu ni ty Hospita l Clinics potassium potassium No potassium [place] chloride ER chloride ER chloride Communi 10 mEq 10 mEq ER 10 mEq ty tablet,exte tablet,exte tablet,ext Hospita nded nded ended l release release release Clinic s TAKE 1 TAKE 1 TAKE 1 TABLET BY TABLET BY TABLET BY MOUTH EVERY MOUTH EVERY MOUTH DAY DAY EVERY DAY Prolia 60 Prolia 60 No Prolia 60 [place] mg/mL mg/mL mg/mL Communi subcutaneou subcutaneou subcutaneo ty s syringe 1 s syringe 1 us syringe Hospita ML SUBQ ML SUBQ 1 ML SUBQ l every 6 every 6 every 6 Clinic s months / months / months / m81.0 m81.0 m81.0 osteoporosi osteoporosi osteoporos s / inj s / inj is / inj code 23047 code 52091 code 63466 tramadol 50 tramadol 50 No tramadol [place] mg tablet mg tablet 50 mg Comm uni TAKE 1 TAKE 1 tablet ty TABLET BY TABLET BY TAKE 1 [facility] MOUTH EVERY MOUTH EVERY TABLET BY l 6 HOURS 6 HOURS MOUTH Clinics EVERY 6 HOURS [facility] No [facility] Swe tristian Pen Needle Pen Needle Pen Needle Communi 32 gauge x 32 gauge x 32 gauge x ty " USE " USE " USE Hospita DIRECTED DIRECTED l WITH WITH DIRECTED Clinics INSULIN INSULIN WITH INJECTIONS INJECTIONS INSULIN INJECTIONS alprazolam alprazolam No alprazolam [place] 0.25 mg 0.25 mg 0.25 mg Commun i tablet TAKE tablet TAKE tablet ty 1 TABLET BY 1 TABLET BY TAKE 1 Hospita MOUTH EVERY MOUTH EVERY TABLET BY l NIGHT AT NIGHT AT MOUTH Clinic s BEDTIME BEDTIME EVERY NIGHT AT BEDTIME BD [facility] 2nd BD Kaitlin 2nd No BD Kaitlin [place] Gen Pen Gen Pen 2nd Gen Commun i Needle 32 Needle 32 Pen Needle ty gauge x gauge x 32 gauge x [facility] " USE " USE " USE l DIRECTED DIRECTED C linics WITH LANTUS WITH LANTUS DIRECTED WITH LANTUS buspirone 5 buspirone 5 No buspirone [place] mg tablet mg tablet 5 mg Commu ni TAKE 1 TAKE 1 tablet ty TABLET BY TABLET BY TAKE 1 [facility] MOUTH TWICE MOUTH TWICE TABLET BY l DAILY DAILY MOUTH Clinic s NEEDED NEEDED TWICE DAILY NEEDED cholestyram cholestyram No cholestyra [place] ine (with ine (with mine (with Communi sugar) 4 sugar) 4 sugar) 4 ty gram powder gram powder gram H [facility] for susp in for susp in powder for l a packet a packet susp in a Cl inics MIX AND MIX AND packet MIX DRINK 1 DRINK 1 AND DRINK PACKET BY PACKET BY 1 PACKET MOUTH THREE MOUTH THREE BY MOUTH TIMES DAILY TIMES DAILY THREE TIMES DAILY cyanocobala cyanocobala No 1mL cyanocobal [place] min (vit min (vit villafana (vit Co mmuni B-12) 1,000 B-12) 1,000 B-12) ty mcg/mL mcg/mL 1,000 Hospita injection injection mcg/mL l solution solution injection Cl inics Inject 1 mL Inject 1 mL solution every month every month Inject 1 by by mL every subcutaneou subcutaneou month by s route. s route. subcutaneo us route. diphenoxyla diphenoxyla No diphenoxyl [place] te-atropine te-atropine ate-atropi Communi 2.5 2.5 ne 2.5 ty mg-0.025 mg mg-0.025 mg mg-0.025 Hospita tablet TAKE tablet TAKE mg tablet l 2 TABLETS 2 TABLETS TAKE 2 Cli nics BY MOUTH BY MOUTH TABLETS BY WITH 1ST WITH 1ST MOUTH WITH BOWEL BOWEL 1ST BOWEL MOVEMENT MOVEMENT MOVEMENT AND 1 AND 1 AND 1 TABLET WITH TABLET WITH TABLET ADDITIONAL ADDITIONAL WITH BOWEL BOWEL ADDITIONAL MOVEMENT MOVEMENT BOWEL FOR UP TO 5 FOR UP TO 5 MOVEMENT TABLETS PER TABLETS PER FOR UP TO DAY DAY 5 TABLETS PER DAY duloxetine duloxetine No duloxetine [place] 30 mg 30 mg 30 mg Communi capsule,del capsule,del capsule,de ty ayed ayed layed Hospita release release release l TAKE 1 TAKE 1 TAKE 1 Clinics CAPSULE BY CAPSULE BY CAPSULE BY MOUTH EVERY MOUTH EVERY MOUTH DAY DAY EVERY DAY ezetimibe ezetimibe No ezetimibe [place] 10 mg 10 mg 10 mg Communi tablet TAKE tablet TAKE tablet ty 1 TABLET BY 1 TABLET BY TAKE 1 Hospita MOUTH EVERY MOUTH EVERY TABLET BY l DAY DAY MOUTH Clinics EVERY DAY Lantus Lantus No Lantus [place] Solostar Solostar Solostar Com shadi U-100 U-100 U-100 ty Insulin 100 Insulin 100 Insulin Hospita unit/mL (3 unit/mL (3 100 l mL) mL) unit/mL (3 Clinics subcutaneou subcutaneou mL) s pen s pen subcutaneo ADMINISTER ADMINISTER us pen 80 UNITS 80 UNITS ADMINISTER UNDER THE UNDER THE 80 UNITS SKIN EVERY SKIN EVERY UNDER THE DAY DAY SKIN EVERY DAY lisinopril lisinopril No lisinopril [place] 5 mg tablet 5 mg tablet 5 mg C [facility]i TAKE 1 TAKE 1 tablet ty TABLET BY TABLET BY TAKE 1 [facility] MOUTH EVERY MOUTH EVERY TABLET BY l DAY DAY MOUTH Clinics EVERY DAY meloxicam meloxicam No meloxicam [place] 7.5 mg 7.5 mg 7.5 mg Communi tablet TAKE tablet TAKE tablet ty 1 TABLET BY 1 TABLET BY TAKE 1 Hospita MOUTH EVERY MOUTH EVERY TABLET BY l DAY WITH A DAY WITH A MOUTH Cl inics MEAL MEAL EVERY DAY WITH A MEAL [facility] Com[facility] ni ty Hospita l Clinics potassium potassium No potassium [place] chloride ER chloride ER chloride Communi 10 mEq 10 mEq ER 10 mEq ty tablet,exte tablet,exte tablet,ext Hospita nded nded ended l release release release Clinic s TAKE 1 TAKE 1 TAKE 1 TABLET BY TABLET BY TABLET BY MOUTH EVERY MOUTH EVERY MOUTH DAY DAY EVERY DAY Prolia 60 Prolia 60 No Prolia 60 [place] mg/mL mg/mL mg/mL Communi subcutaneou subcutaneou subcutaneo ty s syringe 1 s syringe 1 us syringe Hospita ML SUBQ ML SUBQ 1 ML SUBQ l every 6 every 6 every 6 Clinic s months / months / months / m81.0 m81.0 m81.0 osteoporosi osteoporosi osteoporos s / inj s / inj is / inj code 31750 code 18840 code 66522 tramadol 50 tramadol 50 No tramadol [place] mg tablet mg tablet 50 mg Comm uni TAKE 1 TAKE 1 tablet ty TABLET BY TABLET BY TAKE 1 [facility] MOUTH EVERY MOUTH EVERY TABLET BY l 6 HOURS 6 HOURS MOUTH Clinics EVERY 6 HOURS alprazolam alprazolam No alprazolam [place] 0.25 mg 0.25 mg 0.25 mg Commun i tablet TAKE tablet TAKE tablet ty 1 TABLET BY 1 TABLET BY TAKE 1 Hospita MOUTH EVERY MOUTH EVERY TABLET BY l NIGHT AT NIGHT AT MOUTH Clinic s BEDTIME BEDTIME EVERY NIGHT AT BEDTIME BD Kaitlin 2nd BD K[facility] 2nd No BD Kaitlin [place] Gen Pen Gen Pen 2nd Gen Commun i Needle 32 Needle 32 Pen Needle ty gauge x gauge x 32 gauge x [facility] " USE " USE " USE l DIRECTED DIRECTED C linics WITH LANTUS WITH LANTUS DIRECTED WITH LANTUS buspirone 5 buspirone 5 No buspirone [place] mg tablet mg tablet 5 mg Commu ni TAKE 1 TAKE 1 tablet ty TABLET BY TABLET BY TAKE 1 [facility] MOUTH TWICE MOUTH TWICE TABLET BY l DAILY DAILY MOUTH Clinic s NEEDED NEEDED TWICE DAILY NEEDED cholestyram cholestyram No cholestyra [place] ine (with ine (with mine (with Communi sugar) 4 sugar) 4 sugar) 4 ty gram powder gram powder gram H [facility]spita for susp in for susp in powder for l a packet a packet susp in a Cl inics MIX AND MIX AND packet MIX DRINK 1 DRINK 1 AND DRINK PACKET BY PACKET BY 1 PACKET MOUTH THREE MOUTH THREE BY MOUTH TIMES DAILY TIMES DAILY THREE TIMES DAILY cyanocobala cyanocobala No 1mL cyanocobal [place] min (vit min (vit villafana (vit Co mmuni B-12) 1,000 B-12) 1,000 B-12) ty mcg/mL mcg/mL 1,000 Hospita injection injection mcg/mL l solution solution injection Cl inics Inject 1 mL Inject 1 mL solution every month every month Inject 1 by by mL every subcutaneou subcutaneou month by s route. s route. subcutaneo us route. diphenoxyla diphenoxyla No diphenoxyl [place] te-atropine te-atropine ate-atropi Communi 2.5 2.5 ne 2.5 ty mg-0.025 mg mg-0.025 mg mg-0.025 Hospita tablet TAKE tablet TAKE mg tablet l 2 TABLETS 2 TABLETS TAKE 2 Cli nics BY MOUTH BY MOUTH TABLETS BY WITH 1ST WITH 1ST MOUTH WITH BOWEL BOWEL 1ST BOWEL MOVEMENT MOVEMENT MOVEMENT AND 1 AND 1 AND 1 TABLET WITH TABLET WITH TABLET ADDITIONAL ADDITIONAL WITH BOWEL BOWEL ADDITIONAL MOVEMENT MOVEMENT BOWEL FOR UP TO 5 FOR UP TO 5 MOVEMENT TABLETS PER TABLETS PER FOR UP TO DAY DAY 5 TABLETS PER DAY duloxetine duloxetine No duloxetine [place] 30 mg 30 mg 30 mg Communi capsule,del capsule,del capsule,de ty ayed ayed layed Hospita release release release l TAKE 1 TAKE 1 TAKE 1 Clinics CAPSULE BY CAPSULE BY CAPSULE BY MOUTH EVERY MOUTH EVERY MOUTH DAY DAY EVERY DAY ezetimibe ezetimibe No ezetimibe [place] 10 mg 10 mg 10 mg Communi tablet TAKE tablet TAKE tablet ty 1 TABLET BY 1 TABLET BY TAKE 1 Hospita MOUTH EVERY MOUTH EVERY TABLET BY l DAY DAY MOUTH Clinics EVERY DAY Lantus Lantus No Lantus [place] Solostar Solostar Solostar Com shadi U-100 U-100 U-100 ty Insulin 100 Insulin 100 Insulin Hospita unit/mL (3 unit/mL (3 100 l mL) mL) unit/mL (3 Clinics subcutaneou subcutaneou mL) s pen s pen subcutaneo ADMINISTER ADMINISTER us pen 80 UNITS 80 UNITS ADMINISTER UNDER THE UNDER THE 80 UNITS SKIN EVERY SKIN EVERY UNDER THE DAY DAY SKIN EVERY DAY lisinopril lisinopril No lisinopril [place] 5 mg tablet 5 mg tablet 5 mg C [facility] TAKE 1 TAKE 1 tablet ty TABLET BY TABLET BY TAKE 1 [facility] MOUTH EVERY MOUTH EVERY TABLET BY l DAY DAY MOUTH Clinics EVERY DAY meloxicam meloxicam No meloxicam [place] 7.5 mg 7.5 mg 7.5 mg Communi tablet TAKE tablet TAKE tablet ty 1 TABLET BY 1 TABLET BY TAKE 1 Hospita MOUTH EVERY MOUTH EVERY TABLET BY l DAY WITH A DAY WITH A MOUTH Cl inics MEAL MEAL EVERY DAY WITH A MEAL [facility] Commu ni ty Hospita l Clinics potassium potassium No potassium [place] chloride ER chloride ER chloride Communi 10 mEq 10 mEq ER 10 mEq ty tablet,exte tablet,exte tablet,ext Hospita nded nded ended l release release release Clinic s TAKE 1 TAKE 1 TAKE 1 TABLET BY TABLET BY TABLET BY MOUTH EVERY MOUTH EVERY MOUTH DAY DAY EVERY DAY Prolia 60 Prolia 60 No Prolia 60 [place] mg/mL mg/mL mg/mL Communi subcutaneou subcutaneou subcutaneo ty s syringe 1 s syringe 1 us syringe Hospita ML SUBQ ML SUBQ 1 ML SUBQ l every 6 every 6 every 6 Clinic s months / months / months / m81.0 m81.0 m81.0 osteoporosi osteoporosi osteoporos s / inj s / inj is / inj code 90769 code 92186 code 40167 tramadol 50 tramadol 50 No tramadol [place] mg tablet mg tablet 50 mg Comm uni TAKE 1 TAKE 1 tablet ty TABLET BY TABLET BY TAKE 1 [facility] MOUTH EVERY MOUTH EVERY TABLET BY l 6 HOURS 6 HOURS MOUTH Clinics EVERY 6 HOURS alprazolam alprazolam No alprazolam [place] 0.25 mg 0.25 mg 0.25 mg Commun i tablet TAKE tablet TAKE tablet ty 1 TABLET BY 1 TABLET BY TAKE 1 Hospita MOUTH EVERY MOUTH EVERY TABLET BY l NIGHT AT NIGHT AT MOUTH Clinic s BEDTIME BEDTIME EVERY NIGHT AT BEDTIME BD [facility] 2nd BD K[facility] 2nd No BD Kaitlin [place] Gen Pen Gen Pen 2nd Gen Commun i Needle 32 Needle 32 Pen Needle ty gauge x gauge x 32 gauge x [facility] " USE " USE " USE l DIRECTED DIRECTED C linics WITH LANTUS WITH LANTUS DIRECTED WITH LANTUS buspirone 5 buspirone 5 No buspirone [place] mg tablet mg tablet 5 mg Commu ni TAKE 1 TAKE 1 tablet ty TABLET BY TABLET BY TAKE 1 [facility] MOUTH TWICE MOUTH TWICE TABLET BY l DAILY DAILY MOUTH Clinic s NEEDED NEEDED TWICE DAILY NEEDED cholestyram cholestyram No cholestyra [place] ine (with ine (with mine (with Communi sugar) 4 sugar) 4 sugar) 4 ty gram powder gram powder gram H [facility]sp[facility] for susp in for susp in powder for l a packet a packet susp in a Cl inics MIX AND MIX AND packet MIX DRINK 1 DRINK 1 AND DRINK PACKET BY PACKET BY 1 PACKET MOUTH THREE MOUTH THREE BY MOUTH TIMES DAILY TIMES DAILY THREE TIMES DAILY cyanocobala cyanocobala No 1mL cyanocobal [place] min (vit min (vit villafana (vit Co mmuni B-12) 1,000 B-12) 1,000 B-12) ty mcg/mL mcg/mL 1,000 Hospita injection injection mcg/mL l solution solution injection Cl inics Inject 1 mL Inject 1 mL solution every month every month Inject 1 by by mL every subcutaneou subcutaneou month by s route. s route. subcutaneo us route. diphenoxyla diphenoxyla No diphenoxyl [place] te-atropine te-atropine ate-atropi Communi 2.5 2.5 ne 2.5 ty mg-0.025 mg mg-0.025 mg mg-0.025 Hospita tablet TAKE tablet TAKE mg tablet l 2 TABLETS 2 TABLETS TAKE 2 Cli nics BY MOUTH BY MOUTH TABLETS BY WITH 1ST WITH 1ST MOUTH WITH BOWEL BOWEL 1ST BOWEL MOVEMENT MOVEMENT MOVEMENT AND 1 AND 1 AND 1 TABLET WITH TABLET WITH TABLET ADDITIONAL ADDITIONAL WITH BOWEL BOWEL ADDITIONAL MOVEMENT MOVEMENT BOWEL FOR UP TO 5 FOR UP TO 5 MOVEMENT TABLETS PER TABLETS PER FOR UP TO DAY DAY 5 TABLETS PER DAY duloxetine duloxetine No duloxetine [place] 30 mg 30 mg 30 mg [facility]i capsule,del capsule,del capsule,de ty ayed ayed layed Hospita release release release l TAKE 1 TAKE 1 TAKE 1 Clinics CAPSULE BY CAPSULE BY CAPSULE BY MOUTH EVERY MOUTH EVERY MOUTH DAY DAY EVERY DAY ezetimibe ezetimibe No ezetimibe [place] 10 mg 10 mg 10 mg Communi tablet TAKE tablet TAKE tablet ty 1 TABLET BY 1 TABLET BY TAKE 1 Hospita MOUTH EVERY MOUTH EVERY TABLET BY l DAY DAY MOUTH Clinics EVERY DAY Lantus Lantus No Lantus [place] Solostar Solostar Solostar Com shadi U-100 U-100 U-100 ty Insulin 100 Insulin 100 Insulin Hosp[facility] unit/mL (3 unit/mL (3 100 l mL) mL) unit/mL (3 Clinics subcutaneou subcutaneou mL) s pen s pen subcutaneo ADMINISTER ADMINISTER us pen 80 UNITS 80 UNITS ADMINISTER UNDER THE UNDER THE 80 UNITS SKIN EVERY SKIN EVERY UNDER THE DAY DAY SKIN EVERY DAY lisinopril lisinopril No lisinopril [place] 5 mg tablet 5 mg tablet 5 mg [facility] TAKE 1 TAKE 1 tablet ty TABLET BY TABLET BY TAKE 1 [facility] MOUTH EVERY MOUTH EVERY TABLET BY l DAY DAY MOUTH Clinics EVERY DAY meloxicam meloxicam No meloxicam [place] 7.5 mg 7.5 mg 7.5 mg Communi tablet TAKE tablet TAKE tablet ty 1 TABLET BY 1 TABLET BY TAKE 1 Hospita MOUTH EVERY MOUTH EVERY TABLET BY l DAY WITH A DAY WITH A MOUTH Cl inics MEAL MEAL EVERY DAY WITH A MEAL nitrofurant nitrofurant No nitrofuran [place] oin oin toin Communi monohydrate monohydrate monohydrat ty /macrocryst /macrocryst e/macrocry Hospita als 100 mg als 100 mg stals 100 l capsule capsule mg capsule Cli nics TAKE 1 TAKE 1 TAKE 1 CAPSULE BY CAPSULE BY CAPSULE BY MOUTH TWICE MOUTH TWICE MOUTH DAILY FOR DAILY FOR TWICE 10 DAYS 10 DAYS DAILY FOR 10 DAYS [facility] Commu ni ty Hospita l Clinics potassium potassium No potassium [place] chloride ER chloride ER chloride Communi 10 mEq 10 mEq ER 10 mEq ty tablet,exte tablet,exte tablet,ext Hospita nded nded ended l release release release Clinic s TAKE 1 TAKE 1 TAKE 1 TABLET BY TABLET BY TABLET BY MOUTH EVERY MOUTH EVERY MOUTH DAY DAY EVERY DAY Prolia 60 Prolia 60 No Prolia 60 [place] mg/mL mg/mL mg/mL Communi subcutaneou subcutaneou subcutaneo ty s syringe 1 s syringe 1 us syringe Hospita ML SUBQ ML SUBQ 1 ML SUBQ l every 6 every 6 every 6 Clinic s months / months / months / m81.0 m81.0 m81.0 osteoporosi osteoporosi osteoporos s / inj s / inj is / inj code 34952 code 10648 code 27479 tramadol 50 tramadol 50 No tramadol [place] mg tablet mg tablet 50 mg Comm uni TAKE 1 TAKE 1 tablet ty TABLET BY TABLET BY TAKE 1 [facility] MOUTH EVERY MOUTH EVERY TABLET BY l 6 HOURS 6 HOURS MOUTH Clinics EVERY 6 HOURS alprazolam alprazolam No alprazolam [place] 0.25 mg 0.25 mg 0.25 mg Commun i tablet TAKE tablet TAKE tablet ty 1 TABLET BY 1 TABLET BY TAKE 1 Hospita MOUTH EVERY MOUTH EVERY TABLET BY l NIGHT AT NIGHT AT MOUTH Clinic s BEDTIME BEDTIME EVERY NIGHT AT BEDTIME BD [facility] 2nd BD [facility] 2nd No BD Kaitlin [place] Gen Pen Gen Pen 2nd Gen Commun i Needle 32 Needle 32 Pen Needle ty gauge x gauge x 32 gauge x [facility] " USE " USE " USE l DIRECTED DIRECTED C linics WITH LANTUS WITH LANTUS DIRECTED WITH LANTUS buspirone 5 buspirone 5 No buspirone [place] mg tablet mg tablet 5 mg Commu ni TAKE 1 TAKE 1 tablet ty TABLET BY TABLET BY TAKE 1 [facility] MOUTH TWICE MOUTH TWICE TABLET BY l DAILY DAILY MOUTH Clinic s NEEDED NEEDED TWICE DAILY NEEDED cefuroxime cefuroxime No 1 Q12H cefuroxime [place] axetil 500 axetil 500 axetil 500 Communi mg tablet mg tablet mg tablet ty Take 1 Take 1 Take 1 Hospita tablet tablet tablet l every 12 every 12 every 12 Cli nics hours by hours by hours by oral route. oral route. oral route. cholestyram cholestyram No cholestyra [place] ine (with ine (with mine (with Communi sugar) 4 sugar) 4 sugar) 4 ty gram powder gram powder gram H [facility] for susp in for susp in powder for l a packet a packet susp in a Cl inics MIX AND MIX AND packet MIX DRINK 1 DRINK 1 AND DRINK PACKET BY PACKET BY 1 PACKET MOUTH THREE MOUTH THREE BY MOUTH TIMES DAILY TIMES DAILY THREE TIMES DAILY cyanocobala cyanocobala No 1mL cyanocobal [place] min (vit min (vit villafana (vit Co mmuni B-12) 1,000 B-12) 1,000 B-12) ty mcg/mL mcg/mL 1,000 Hospita injection injection mcg/mL l solution solution injection Cl inics Inject 1 mL Inject 1 mL solution every month every month Inject 1 by by mL every subcutaneou subcutaneou month by s route. s route. subcutaneo us route. diphenoxyla diphenoxyla No diphenoxyl [place] te-atropine te-atropine ate-atropi Communi 2.5 2.5 ne 2.5 ty mg-0.025 mg mg-0.025 mg mg-0.025 Hospita tablet TAKE tablet TAKE mg tablet l 2 TABLETS 2 TABLETS TAKE 2 Cli nics BY MOUTH BY MOUTH TABLETS BY WITH 1ST WITH 1ST MOUTH WITH BOWEL BOWEL 1ST BOWEL MOVEMENT MOVEMENT MOVEMENT AND 1 AND 1 AND 1 TABLET WITH TABLET WITH TABLET ADDITIONAL ADDITIONAL WITH BOWEL BOWEL ADDITIONAL MOVEMENT MOVEMENT BOWEL FOR UP TO 5 FOR UP TO 5 MOVEMENT TABLETS PER TABLETS PER FOR UP TO DAY DAY 5 TABLETS PER DAY duloxetine duloxetine No duloxetine [place] 30 mg 30 mg 30 mg [facility]i capsule,del capsule,del capsule,de ty ayed ayed layed Hospita release release release l TAKE 1 TAKE 1 TAKE 1 Clinics CAPSULE BY CAPSULE BY CAPSULE BY MOUTH EVERY MOUTH EVERY MOUTH DAY DAY EVERY DAY ezetimibe ezetimibe No ezetimibe [place] 10 mg 10 mg 10 mg Communi tablet TAKE tablet TAKE tablet ty 1 TABLET BY 1 TABLET BY TAKE 1 Hospita MOUTH EVERY MOUTH EVERY TABLET BY l DAY DAY MOUTH Clinics EVERY DAY Lantus Lantus No Lantus [place] Solostar Solostar Solostar Com shadi U-100 U-100 U-100 ty Insulin 100 Insulin 100 Insulin [facility]osp[facility] unit/mL (3 unit/mL (3 100 l mL) mL) unit/mL (3 Clinics subcutaneou subcutaneou mL) s pen s pen subcutaneo ADMINISTER ADMINISTER us pen 80 UNITS 80 UNITS ADMINISTER UNDER THE UNDER THE 80 UNITS SKIN EVERY SKIN EVERY UNDER THE DAY DAY SKIN EVERY DAY lisinopril lisinopril No lisinopril [place] 5 mg tablet 5 mg tablet 5 mg [facility] TAKE 1 TAKE 1 tablet ty TABLET BY TABLET BY TAKE 1 [facility] MOUTH EVERY MOUTH EVERY TABLET BY l DAY DAY MOUTH Clinics EVERY DAY meloxicam meloxicam No meloxicam [place] 7.5 mg 7.5 mg 7.5 mg Communi tablet TAKE tablet TAKE tablet ty 1 TABLET BY 1 TABLET BY TAKE 1 Hospita MOUTH EVERY MOUTH EVERY TABLET BY l DAY WITH A DAY WITH A MOUTH Cl inics MEAL MEAL EVERY DAY WITH A MEAL nitrofurant nitrofurant No nitrofuran [place] oin oin toin Communi monohydrate monohydrate monohydrat ty /macrocryst /macrocryst e/macrocry Hospita als 100 mg als 100 mg stals 100 l capsule capsule mg capsule Cli nics TAKE 1 TAKE 1 TAKE 1 CAPSULE BY CAPSULE BY CAPSULE BY MOUTH TWICE MOUTH TWICE MOUTH DAILY FOR DAILY FOR TWICE 10 DAYS 10 DAYS DAILY FOR 10 DAYS [facility] Commu ni ty Hospita l Clinics potassium potassium No potassium [place] chloride ER chloride ER chloride Communi 10 mEq 10 mEq ER 10 mEq ty tablet,exte tablet,exte tablet,ext Hospita nded nded ended l release release release Clinic s TAKE 1 TAKE 1 TAKE 1 TABLET BY TABLET BY TABLET BY MOUTH EVERY MOUTH EVERY MOUTH DAY DAY EVERY DAY Prolia 60 Prolia 60 No Prolia 60 [place] mg/mL mg/mL mg/mL Communi subcutaneou subcutaneou subcutaneo ty s syringe 1 s syringe 1 us syringe Hospita ML SUBQ ML SUBQ 1 ML SUBQ l every 6 every 6 every 6 Clinic s months / months / months / m81.0 m81.0 m81.0 osteoporosi osteoporosi osteoporos s / inj s / inj is / inj code 70243 code 63586 code 17220 tramadol 50 tramadol 50 No tramadol [place] mg tablet mg tablet 50 mg Comm uni TAKE 1 TAKE 1 tablet ty TABLET BY TABLET BY TAKE 1 [facility] MOUTH EVERY MOUTH EVERY TABLET BY l 6 HOURS 6 HOURS MOUTH Clinics EVERY 6 HOURS alprazolam alprazolam No alprazolam [place] 0.25 mg 0.25 mg 0.25 mg Commun i tablet TAKE tablet TAKE tablet ty 1 TABLET BY 1 TABLET BY TAKE 1 Hospita MOUTH EVERY MOUTH EVERY TABLET BY l NIGHT AT NIGHT AT MOUTH Clinic s BEDTIME BEDTIME EVERY NIGHT AT BEDTIME BD [facility] 2nd BD [facility] 2nd No BD Kaitlin [place] Gen Pen Gen Pen 2nd Gen Commun i Needle 32 Needle 32 Pen Needle ty gauge x gauge x 32 gauge x [facility] " USE " USE " USE l DIRECTED DIRECTED C linics WITH LANTUS WITH LANTUS DIRECTED WITH LANTUS buspirone 5 buspirone 5 No buspirone [place] mg tablet mg tablet 5 mg Commu ni TAKE 1 TAKE 1 tablet ty TABLET BY TABLET BY TAKE 1 [facility] MOUTH TWICE MOUTH TWICE TABLET BY l DAILY DAILY MOUTH Clinic s NEEDED NEEDED TWICE DAILY NEEDED cholestyram cholestyram No cholestyra [place] ine (with ine (with mine (with Communi sugar) 4 sugar) 4 sugar) 4 ty gram powder gram powder gram [facility] for susp in for susp in powder for l a packet a packet susp in a Cl inics MIX AND MIX AND packet MIX DRINK 1 DRINK 1 AND DRINK PACKET BY PACKET BY 1 PACKET MOUTH THREE MOUTH THREE BY MOUTH TIMES DAILY TIMES DAILY THREE TIMES DAILY cyanocobala cyanocobala No 1mL cyanocobal [place] min (vit min (vit villafana (vit Co mmuni B-12) 1,000 B-12) 1,000 B-12) ty mcg/mL mcg/mL 1,000 Hospita injection injection mcg/mL l solution solution injection Cl inics Inject 1 mL Inject 1 mL solution every month every month Inject 1 by by mL every subcutaneou subcutaneou month by s route. s route. subcutaneo us route. diphenoxyla diphenoxyla No diphenoxyl [place] te-atropine te-atropine ate-atropi Communi 2.5 2.5 ne 2.5 ty mg-0.025 mg mg-0.025 mg mg-0.025 Hospita tablet TAKE tablet TAKE mg tablet l 2 TABLETS 2 TABLETS TAKE 2 Cli nics BY MOUTH BY MOUTH TABLETS BY WITH 1ST WITH 1ST MOUTH WITH BOWEL BOWEL 1ST BOWEL MOVEMENT MOVEMENT MOVEMENT AND 1 AND 1 AND 1 TABLET WITH TABLET WITH TABLET ADDITIONAL ADDITIONAL WITH BOWEL BOWEL ADDITIONAL MOVEMENT MOVEMENT BOWEL FOR UP TO 5 FOR UP TO 5 MOVEMENT TABLETS PER TABLETS PER FOR UP TO DAY DAY 5 TABLETS PER DAY duloxetine duloxetine No duloxetine [place] 30 mg 30 mg 30 mg Communi capsule,del capsule,del capsule,de ty ayed ayed layed Hospita release release release l TAKE 1 TAKE 1 TAKE 1 Clinics CAPSULE BY CAPSULE BY CAPSULE BY MOUTH EVERY MOUTH EVERY MOUTH DAY DAY EVERY DAY ezetimibe ezetimibe No ezetimibe [place] 10 mg 10 mg 10 mg Communi tablet TAKE tablet TAKE tablet ty 1 TABLET BY 1 TABLET BY TAKE 1 Hospita MOUTH EVERY MOUTH EVERY TABLET BY l DAY DAY MOUTH Clinics EVERY DAY Lantus Lantus No Lantus [place] Solostar Solostar Solostar Com shadi U-100 U-100 U-100 ty Insulin 100 Insulin 100 Insulin Hosp[facility] unit/mL (3 unit/mL (3 100 l mL) mL) unit/mL (3 Clinics subcutaneou subcutaneou mL) s pen s pen subcutaneo ADMINISTER ADMINISTER us pen 80 UNITS 80 UNITS ADMINISTER UNDER THE UNDER THE 80 UNITS SKIN EVERY SKIN EVERY UNDER THE DAY DAY SKIN EVERY DAY lisinopril lisinopril No lisinopril [place] 5 mg tablet 5 mg tablet 5 mg [facility] TAKE 1 TAKE 1 tablet ty TABLET BY TABLET BY TAKE 1 [facility] MOUTH EVERY MOUTH EVERY TABLET BY l DAY DAY MOUTH Clinics EVERY DAY nitrofurant nitrofurant No nitrofuran [place] oin oin toin Communi monohydrate monohydrate monohydrat ty /macrocryst /macrocryst e/macrocry Hospita als 100 mg als 100 mg stals 100 l capsule capsule mg capsule Cli nics TAKE 1 TAKE 1 TAKE 1 CAPSULE BY CAPSULE BY CAPSULE BY MOUTH TWICE MOUTH TWICE MOUTH DAILY FOR DAILY FOR TWICE 10 DAYS 10 DAYS DAILY FOR 10 DAYS [facility] No [facility] Commu ni ty Hospita l Clinics potassium potassium No potassium [place] chloride ER chloride ER chloride Communi 10 mEq 10 mEq ER 10 mEq ty tablet,exte tablet,exte tablet,ext Hospita nded nded ended l release release release Clinic s TAKE 1 TAKE 1 TAKE 1 TABLET BY TABLET BY TABLET BY MOUTH EVERY MOUTH EVERY MOUTH DAY DAY EVERY DAY prednisone prednisone No 1 Q1D prednisone [place] 5 mg tablet 5 mg tablet 5 mg C ommuni Take 1 Take 1 tablet ty tablet tablet Take 1 Hospita every day every day tablet l by oral by oral every day Clin ics route with route with by oral meals. meals. route with meals. Prolia 60 Prolia 60 No Prolia 60 [place] mg/mL mg/mL mg/mL Communi subcutaneou subcutaneou subcutaneo ty s syringe 1 s syringe 1 us syringe Hospita ML SUBQ ML SUBQ 1 ML SUBQ l every 6 every 6 every 6 Clinic s months / months / months / m81.0 m81.0 m81.0 osteoporosi osteoporosi osteoporos s / inj s / inj is / inj code 93569 code 09421 code 84263 tramadol 50 tramadol 50 No tramadol [place] mg tablet mg tablet 50 mg Comm uni TAKE 1 TAKE 1 tablet ty TABLET BY TABLET BY TAKE 1 Hos [place] MOUTH EVERY MOUTH EVERY TABLET BY l 6 HOURS 6 HOURS MOUTH Clinics EVERY 6 HOURS alprazolam alprazolam No alprazolam [place] 0.25 mg 0.25 mg 0.25 mg Commun i tablet TAKE tablet TAKE tablet ty 1 TABLET BY 1 TABLET BY TAKE 1 Hospita MOUTH EVERY MOUTH EVERY TABLET BY l NIGHT AT NIGHT AT MOUTH Clinic s BEDTIME BEDTIME EVERY NIGHT AT BEDTIME BD Kaitlin 2nd BD Kaitlin 2nd No BD Kaitlin [place] Gen Pen Gen Pen 2nd Gen Commun i Needle 32 Needle 32 Pen Needle ty gauge x gauge x 32 gauge x Hos [place] /" USE " USE " USE l DIRECTED DIRECTED C linics WITH LANTUS WITH LANTUS DIRECTED WITH LANTUS cyanocobala cyanocobala No 1mL cyanocobal [place] min (vit min (vit villafana (vit Co mmuni B-12) 1,000 B-12) 1,000 B-12) ty mcg/mL mcg/mL 1,000 Hospita injection injection mcg/mL l solution solution injection Cl inics Inject 1 mL Inject 1 mL solution every month every month Inject 1 by by mL every subcutaneou subcutaneou month by s route. s route. subcutaneo us route. meloxicam meloxicam No meloxicam [place] 7.5 mg 7.5 mg 7.5 mg Communi tablet TAKE tablet TAKE tablet ty 1 TABLET BY 1 TABLET BY TAKE 1 Hospita MOUTH EVERY MOUTH EVERY TABLET BY l DAY WITH A DAY WITH A MOUTH Cl inics MEAL MEAL EVERY DAY WITH A MEAL [facility] Commu ni ty Hospita l Clinics potassium potassium No potassium [place] chloride ER chloride ER chloride Communi 10 mEq 10 mEq ER 10 mEq ty tablet,exte tablet,exte tablet,ext Hospita nded nded ended l release release release Clinic s TAKE 1 TAKE 1 TAKE 1 TABLET BY TABLET BY TABLET BY MOUTH EVERY MOUTH EVERY MOUTH DAY DAY EVERY DAY prednisone prednisone No prednisone [place] 5 mg tablet 5 mg tablet 5 mg C ommuni TAKE 1 TAKE 1 tablet ty TABLET TABLET TAKE 1 Hospita every other every other TABLET l day day every Clinics other day Prolia 60 Prolia 60 No Prolia 60 [place] mg/mL mg/mL mg/mL Communi subcutaneou subcutaneou subcutaneo ty s syringe 1 s syringe 1 us syringe Hospita ML SUBQ ML SUBQ 1 ML SUBQ l every 6 every 6 every 6 Clinic s months / months / months / m81.0 m81.0 m81.0 osteoporosi osteoporosi osteoporos s / inj s / inj is / inj code 10466 code 12347 code 66352 Tylenol Tylenol No 2 Q8H Tylenol [place] Arthritis Arthritis Arthritis Communi Pain 650 mg Pain 650 mg Pain 650 ty tablet,exte tablet,exte mg H ospita nded nded tablet,ext l release release ended Clinics Take 2 Take 2 release tablets tablets Take 2 every 8 every 8 tablets hours by hours by every 8 oral route. oral route. hours by oral route. alprazolam alprazolam No alprazolam [place] 0.25 mg 0.25 mg 0.25 mg Commun i tablet TAKE tablet TAKE tablet ty 1 TABLET BY 1 TABLET BY TAKE 1 Hospita MOUTH EVERY MOUTH EVERY TABLET BY l NIGHT AT NIGHT AT MOUTH Clinic s BEDTIME BEDTIME EVERY NIGHT AT BEDTIME [id number] No 1 Q1D M64-Phota [place] 1,000 mcg 1,000 mcg 1,000 mcg Communi tablet Take tablet Take tablet ty 1 tablet 1 tablet Take 1 Hospi ta every day every day tablet l by oral by oral every day Clin ics route. route. by oral route. cyanocobala cyanocobala No 1mL cyanocobal [place] min (vit min (vit villafana (vit Co mmuni B-12) 1,000 B-12) 1,000 B-12) ty mcg/mL mcg/mL 1,000 Hospita injection injection mcg/mL l solution solution injection Cl inics Inject 1 mL Inject 1 mL solution every month every month Inject 1 by by mL every subcutaneou subcutaneou month by s route. s route. subcutaneo us route. Lantus Lantus No Lantus [place] Solostar Solostar Solostar Com shadi U-100 U-100 U-100 ty Insulin 100 Insulin 100 Insulin Hospita unit/mL (3 unit/mL (3 100 l mL) mL) unit/mL (3 Clinics subcutaneou subcutaneou mL) s pen s pen subcutaneo INJECT 80 INJECT 80 us pen UNITS UNDER UNITS UNDER INJECT 80 THE SKIN THE SKIN UNITS EVERY DAY EVERY DAY UNDER THE SKIN EVERY DAY levothyroxi levothyroxi No levothyrox [place] ne 25 mcg ne 25 mcg ine 25 mcg Communi tablet TAKE tablet TAKE tablet ty 1 TABLET BY 1 TABLET BY TAKE 1 Hospita MOUTH EVERY MOUTH EVERY TABLET BY l DAY DAY MOUTH Clinics EVERY DAY lisinopril lisinopril No lisinopril [place] 10 mg 10 mg 10 mg Communi tablet Take tablet Take tablet ty 1 tablet 1 tablet Take 1 Hospi ta every day every day tablet l by oral by oral every day Clin ics route. route. by oral route. Multi For Multi For No Multi For [place] Her Her Her Communi ty Hospita l Clinics Vital Signs Vital Name Observation Time Observation Value Comments Source BP Diastolic 2023-01-30 00:00:00 54 mm[Hg] Stefan [facility] s Height 2023-01-30 00:00:00 67 [in_i] [facility] s BMI (Body Mass 2023-01-30 00:00:00 22.6 kg/m2 [facility] s BP Systolic 2023-01-30 00:00:00 130 mm[Hg] [facility] s Body Weight 2023-01-30 00:00:00 2307.2 [oz_av] [facility] BP Diastolic 2023-01-04 00:00:00 70 mm[Hg] [facility] s Height 2023-01-04 00:00:00 67 [in_i] [facility] s BMI (Body Mass 2023-01-04 00:00:00 22.3 kg/m2 [facility] s BP Systolic 2023-01-04 00:00:00 130 mm[Hg] [facility] s Body Weight 2023-01-04 00:00:00 2281.6 [oz_av] [facility] Height 2022-12-13 00:00:00 67 [in_i] [facility] s BMI (Body Mass 2022-12-13 00:00:00 22.1 kg/m2 [facility] s Body Weight 2022-12-13 00:00:00 2259.2 [oz_av] [facility] BP Diastolic 2022-10-31 00:00:00 60 mm[Hg] [facility] s Height 2022-10-31 00:00:00 67 [in_i] [facility] s BMI (Body Mass 2022-10-31 00:00:00 22.7 kg/m2 [facility] s BP Systolic 2022-10-31 00:00:00 120 mm[Hg] [facility] s Body Weight 2022-10-31 00:00:00 2316.8 [oz_av] [facility] BP Diastolic 2022-10-12 00:00:00 62 mm[Hg] [facility] s Height 2022-10-12 00:00:00 67 [in_i] [facility] s BMI (Body Mass 2022-10-12 00:00:00 23.2 kg/m2 [facility] s BP Systolic 2022-10-12 00:00:00 118 mm[Hg] [facility] s Body Weight 2022-10-12 00:00:00 2371.2 [oz_av] [facility] BP Diastolic 2022-08-23 00:00:00 69 mm[Hg] [facility] s Height 2022-08-23 00:00:00 67 [in_i] [facility] s BMI (Body Mass 2022-08-23 00:00:00 22.6 kg/m2 [facility] s BP Systolic 2022-08-23 00:00:00 120 mm[Hg] [facility] s Body Weight 2022-08-23 00:00:00 2310.4 [oz_av] [facility] s BP Diastolic 2022-07-12 00:00:00 70 mm[Hg] [facility] s Height 2022-07-12 00:00:00 67 [in_i] [facility] s BMI (Body Mass 2022-07-12 00:00:00 22.7 kg/m2 [facility] s BP Systolic 2022-07-12 00:00:00 115 mm[Hg] [facility] s Body Weight 2022-07-12 00:00:00 2320 [oz_av] [facility] s BP Diastolic 2022-06-21 00:00:00 60 mm[Hg] [facility] s Height 2022-06-21 00:00:00 67 [in_i] [facility] s BMI (Body Mass 2022-06-21 00:00:00 23.2 kg/m2 [facility] s BP Systolic 2022-06-21 00:00:00 115 mm[Hg] [facility] s Body Weight 2022-06-21 00:00:00 2368 [oz_av] [facility] s BP Diastolic 2022-05-17 00:00:00 68 mm[Hg] [facility] s Height 2022-05-17 00:00:00 67 [in_i] [facility] s BMI (Body Mass 2022-05-17 00:00:00 23.1 kg/m2 [facility] s BP Systolic 2022-05-17 00:00:00 140 mm[Hg] [facility] s Body Weight 2022-05-17 00:00:00 2364.8 [oz_av] [facility] s BP Diastolic 2022-03-21 00:00:00 60 mm[Hg] [facility] s Height 2022-03-21 00:00:00 67 [in_i] [facility] s BP Systolic 2022-03-21 00:00:00 130 mm[Hg] [facility] s BP Diastolic 2022-03-14 00:00:00 48 mm[Hg] [facility] s Height 2022-03-14 00:00:00 67 [in_i] [facility] s BP Systolic 2022-03-14 00:00:00 121 mm[Hg] [facility] s BP Diastolic 2021-12-23 00:00:00 58 mm[Hg] [facility] s Height 2021-12-23 00:00:00 67 [in_i] [facility] s BMI (Body Mass 2021-12-23 00:00:00 25.4 kg/m2 [facility]) [facility] s BP Systolic 2021-12-23 00:00:00 142 mm[Hg] [facility] s Body Weight 2021-12-23 00:00:00 2592 [oz_av] [facility] s BP Diastolic 2021-11-23 00:00:00 60 mm[Hg] [facility] s Height 2021-11-23 00:00:00 67 [in_i] [facility] s BMI (Body Mass 2021-11-23 00:00:00 25.8 kg/m2 [facility]) [facility] s BP Systolic 2021-11-23 00:00:00 140 mm[Hg] [facility] s Body Weight 2021-11-23 00:00:00 2640 [oz_av] [facility] s BP Diastolic 2021-07-14 00:00:00 68 mm[Hg] [facility] s Height 2021-07-14 00:00:00 67 [in_i] [facility] s BMI (Body Mass 2021-07-14 00:00:00 26.4 kg/m2 [facility]) [facility] s BP Systolic 2021-07-14 00:00:00 110 mm[Hg] [facility] s Body Weight 2021-07-14 00:00:00 2697.6 [oz_av] [facility] s BP Diastolic 2021-06-09 00:00:00 74 mm[Hg] [facility] s Height 2021-06-09 00:00:00 67 [in_i] [facility] s BMI (Body Mass 2021-06-09 00:00:00 25.8 kg/m2 [facility]) [facility] s BP Systolic 2021-06-09 00:00:00 132 mm[Hg] [facility] s Body Weight 2021-06-09 00:00:00 2640 [oz_av] [facility] s BP Diastolic 2021-04-08 00:00:00 68 mm[Hg] [facility] s BP Systolic 2021-04-08 00:00:00 120 mm[Hg] [facility] s Body Weight 2021-04-08 00:00:00 2640 [oz_av] [facility] s BP Diastolic 2020-11-05 00:00:00 70 mm[Hg] [facility] s BP Systolic 2020-11-05 00:00:00 150 mm[Hg] [facility] s BP Diastolic 2020-10-28 00:00:00 62 mm[Hg] [facility] s BP Systolic 2020-10-28 00:00:00 138 mm[Hg] [facility] s Body Weight 2020-10-28 00:00:00 2867.2 [oz_av] [facility] s Systolic blood 2022-09-08 15:34:00 139 mm[Hg] [facility] pressure Diastolic blood 2022-09-08 15:34:00 66 mm[Hg] [facility] pressure Heart rate 2022-09-08 15:34:00 63 /min [facility] Respiratory rate 2022-09-08 15:34:00 17 /min [facility] Oxygen saturation in 2022-09-08 15:34:00 98 /min [facility] Arterial blood by Pulse oximetry Body temperature 2022-09-08 15:30:00 36.33 Blanca [facility] Body weight 2022-09-08 14:21:00 63.504 kg [facility] BMI 2022-09-08 14:21:00 21.93 kg/m2 [facility] Body height 2022-04-20 14:45:00 170.2 cm [facility] Procedures Procedure Date / Time Performing Clinician Source Performed US, duplex, arterial, lower 2022-10-12 00:00:00 [facility] [place] < 1 HOUR 2022-09-08 15:20:00 Suhail Mock INJECTION, STEROID, SPINE, 2022-09-08 15:14:00 Suhail Mock [facility] LUMBAR, EPIDURAL, SINGLE POC GLUCOSE 2022-09-08 14:37:00 Suhail Mock XR, lumbosacral spine, 2 or 2022-05-17 00:00:00 [facility] 3 view [facility] CT, head, w/o contrast 2022-05-17 00:00:00 [facility] FECAL CALPROTECTIN 2022-04-22 00:00:00 Provider, Not In [facility] PANCREATIC ELASTASE, FECAL 2022-04-21 00:00:00 Provider, Not In [facility] CT, abdomen + pelvis, w/ 2022-03-21 00:00:00 [facility], head, w/o contrast 2021-12-23 00:00:00 [facility] electrocardiogram 2021-12-23 00:00:00 [facility] XR, ribs, unilateral, w/ PA 2021-12-23 00:00:00 [facility] XR, knee, 3 view 2021-12-23 00:00:00 [facility] MRI, lumbar spine, w/o 2021-07-14 00:00:00 [facility] XR, knee, 3 view 2020-10-28 00:00:00 [facility] Eye Surgery [facility] Hemorrhoidectomy [facility] Carpal Tunnel Surgery [facility] Total Hysterectomy [facility] Knee Surgery [facility] Injection of Eye [facility] Plan of Care Planned Activity Planned Date Details Comments Source Diagnostic Test 2023-01-30 urinalysis, reflex [facility] Pending 00:00:00 culture [code = [facility] Cli nics urinalysis, reflex culture] Future Scheduled Test 2023-01-13 SHINGLES VACCINES (1 [facility] 10:34:38 of 2) [code = SHINGLES VACCINES (1 of 2)] Future Scheduled Test 2023-01-13 65+ PNEUMOCOCCAL Me [facility] 10:34:38 VACCINE (1 - PCV) [code = 65+ PNEUMOCOCCAL VACCINE (1 - PCV)] Future Scheduled Test 2023-01-13 COVID-19 VACCINE (3 - [facility] 10:34:38 Booster for Moderna series) [code = COVID-19 VACCINE (3 - Booster for Moderna series)] Future Scheduled Test 2023-01-[address] [facility] 10:34:38 [code = INFLUENZA VACCINE] Future Appointment 2023-02-20 Daniela Jeronimo, [address] [facility] 00:00:00 [address]; [facility] [address], [place] [address] Encounters Start End Encounter Admission Attending Care Care Encounter Source Date/Time Date/Time Type Type Clinicians Facility Department ID 2023-01-30 2023-01-30 Daniela Vera [facility] [place] [facility] [place] 424 [place] 00:00:00 00:00:00 Jason Jeronimo MD: [address] [address], [facility] [address], [facility] [place], [place], [address] ALLAN , Ph. 2023-01-04 2023-01-04 Daniela Vera [facility] [place] [facility] [place] 329 [place] 00:00:00 00:00:00 Jason Jeronimo MD: [address] [facility] [address], [facility] [address], H[facility]PITAL [facility] [place], [place] CLINIC, [address] ALLAN , Ph. 2022-12-13 2022-12-13 Daniela Vera [facility] [place] [id number] 307 [place] 00:00:00 00:00:00 Jason Jeronimo MD: [address] [facility] [address], [facility] [address], [facility] [place], [place]IC, [address] ALLAN , Ph. 2022-10-31 2022-10-31 Daniela Vera [facility] [place] [facility] [place] [id number] 123 [place] 00:00:00 00:00:00 Jason Jeronimo MD: [address] [facility] [address], [facility] [address], [facility] [place] [place]IC, [address] ALLAN , Ph. 2022-10-13 2022-10-13 Outpatient KEFFER_A [facility] [id number] 0230 [place] 00:00:00 00:00:00 105 Commun i ty Hospita l Clinics 2022-10-13 2022-10-13 Outpatient KEFFER_A [facility] [id number] 0230 [place] 00:00:00 00:00:00 123 Commun i ty Hospita l Clinics 2022-10-13 2022-10-13 Outpatient KEFFER_A [facility] [id number] 0230 [place] 00:00:00 00:00:00 307 Commun i ty Hospita l Clinics 2022-10-13 2022-10-13 Outpatient KEFFER_A [facility] [id number] 0230 [place] 00:00:00 00:00:00 329 Commun i ty Hospita l Clinics 2022-10-13 2022-10-13 Outpatient KEFFER_A [facility] [id number] 0230 [place] 00:00:00 00:00:00 424 Commun i ty Hospita l Clinics 2022-10-12 2022-10-12 Outpatient KEFFER_A [facility] [id number] 0230 [place] 00:00:00 00:00:00 104 Commun i ty Hospita l Clinics 2022-10-12 2022-10-12 Daniela Vera [facility] [place] [facility] [place] 104 [place] 00:00:00 00:00:00 Jason Jeronimo MD: [address] [facility] a [address], COMM[facility] [address], HOSPITAL [facility] Stefan, [facility], [address] ALLAN , Ph. 2022-09-08 2022-09-08 Hospital [facility], 1.2.840.1 [id number] Methodi 06:52:00 10:39:00 Encounter Suhail [address]04.1.[address] 3.430.2.7 Hospit a .3.535771 l .8 2022-09-08 2022-09-08 Surgery [facility], 1.2.840.1 [id number] Methodi 08:33:00 08:47:[address] 3.430.2.7 Hospit a .3.897633 l .8 2022-09-08 2022-09-08 Outpatient KARRIE [facility] [id number] [address] [place] 00:00:00 00:00:[address] 2022-09-08 2022-09-08 Travel 1.2.840.1 [id number] [id number] Methodi 00:00:00 00:00:[address] 3.430.2.7 0.2.7.3.698 Ho spita .3.143386 084.8 l .8 2022-08-23 2022-08-23 Outpatient ALLAN_A [facility] [id number] 0221 [place] 00:00:00 00:00:00 115 Commun i ty Hospita [facility] 2022-08-23 2022-08-23 Daniela Vera [facility] [place] 115 [place] 00:00:00 00:00:00 Jason Jeronimo MD: [address] [facility] Hospit a [address], COMM[facility]ITY [facility] [address], HOSPITAL [facility], [address] ALLAN , Ph. 2022-07-12 2022-07-12 Outpatient ALLAN_A [facility] [id number] 0221 [place] 00:00:00 00:00:00 004 Commun i ty Hospita [facility] 2022-07-12 2022-07-12 Daniela Vera [facility] 004 [place] 00:00:00 00:00:00 Jason Jeronimo MD: [address] [facility] Hospit a [address], COMMUNITY l [address], [facility], [address] ALLAN , Ph. 2022-05-18 2022-07-06 Telephone Juares, 1.2.840.1 [id number] Methodi 11:15:00 16:29:31 Consult [facility] [address]93.1.[address] Luis 3.430.2.7 Hospit a .3.937423 l .8 2022-05-18 2022-07-06 Outpatient BLANQUITA, [facility] [id number] [address] [place] 00:00:00 00:00:00 MATILDEETANGo [address] 2022-06-21 2022-06-21 Outpatient KEFERNY_A [facility] [id number] 0 [place] 00:00:00 00:00:00 913 Commun i ty Hospita l Clinics 2022-06-21 2022-06-21 Daniela Vera [facility] [place] [facility] [place] 91 [place] 00:00:00 00:00:00 Jason Jeronimo MD: [address] [facility] a [address], COMMUNITY l [address], [place], [place] CLINIC, [address] ALLAN , Ph. 2022-06-21 2022-06-21 Outpatient Daniela Jeronimo [facility] [id number] 00:00:00 00:00:00 Jody [id number] 2022-05-25 2022-05-25 Outpatient ALLAN_Jose [facility] [id number] 0 [place] 00:00:00 00:00:00 817 Commun i ty Hospita l [facility] 2022-05-25 2022-05-25 Daniela Vera [facility] [place] [facility] [place] 817 [place] 00:00:00 00:00:00 Jason Jeronimo MD: [address] [facility] a [address], COMM[facility]ITY [facility] [address], [place], [place], [address] ALLAN , Ph. 2022-05-25 2022-05-25 Outpatient Daniela Jeronimo [facility] [id number] 00:00:00 00:00:00 Jody [id number] 2022-05-23 2022-05-23 Telephone Jigar, 1.2.840.1 [id number] Methodi 00:00:00 00:00:00 Rosa M 45866.1.1 166 s t 3.430.2.7 Hospit a .3.640627 l .8 2022-05-17 2022-05-17 Outpatient PENNY [facility] [id number] 0220 [place] 00:00:00 00:00:00 809 Commun i ty Hospita [facility] 2022-05-17 2022-05-17 Daniela Vera [facility] [place] [facility] [place] 809 [place] 00:00:00 00:00:00 Jason Jeronimo MD: [address] [facility] a [address], [facility] [address], HOSPITAL Clinic [facility], [place] CLINIC, [address] ALLAN , Ph. 2022-05-17 2022-05-17 Outpatient Daniela Jeronimo [facility] [id number] 00:00:00 00:00:00 Jody [id number] 2022-05-09 2022-05-09 Orders Provider, 1.2.840.1 [id number] Methodi 00:00:00 00:00:00 Only [place] [address].1.[address] System 3.430.2.7 Hospit a .3.685538 l .8 2022-04-29 2022-04-29 Telephone Zak, 1.2.840.1 [id number] [id number] Methodi 00:00:00 00:00:[address] 3.430.2.7 Hospit a .3.385306 l .8 2022-04-29 2022-04-29 Telephone Blanquita, 1.2.840.1 [id number] Methodi 00:00:00 00:00:[address] Luis 3.430.2.7 Hospit a .3.033979 l .8 2022-04-20 2022-04-20 Office Juares, 1.2.840.1 [id number] Methodi 09:45:00 10:25:29 Visit Svetang 96442.1.[address] Luis 3.430.2.7 Hospit a .3.731767 l .8 2022-04-20 2022-04-20 Travel 1.2.840.1 1.2.902.460 [id number] Methodi 00:00:00 00:00:[address] 3.430.2.7 0.2.7.3.698 Ho spita .3.519197 084.8 l .8 2022-04-20 2022-04-20 Outpatient JUARES, [facility] [id number] [address] [place] 00:00:00 00:00:[address] 2022-03-21 2022-03-21 Outpatient ALLAN_Jose [facility] [id number] 0 [place] 06:18:00 06:18:00 613 Commun i ty Hospita l [facility] 2022-03-21 2022-03-21 Daniela Vera [facility] [place] [facility] 613 [place] 00:00:00 00:00:00 Jason Jeronimo MD: [address] [facility] a [address], [facility] l [address], HOSPITAL [place], [place] [address] [place] [address] ALLAN , Ph. 2022-03-21 2022-03-21 Outpatient Daniela Jeronimo [facility] [id number] 00:00:00 00:00:00 Jody [id number] 2022-03-14 2022-03-14 Outpatient PENNY [facility] [id number] 0220 [place] 01:58:00 01:58:00 606 Commun i ty Hospita l Clinics 2022-03-14 2022-03-14 Daniela Vera [facility] [place] [facility] [place] 606 [place] 00:00:00 00:00:00 Jason [facility]imo MD: [address] [facility] [address] COMM[facility]ITY l [address], [facility], [address] ALLAN , Ph. 2022-03-14 2022-03-14 Outpatient Daniela Jeronimo [facility] [id number] 00:00:00 00:00:00 Jody [id number] 2021-12-23 2021-12-23 Outpatient ALLAN_A [facility] [id number] [place] 04:45:00 04:45:00 317 Commun i ty Hospita l Clinics 2021-12-23 2021-12-23 Daniela Vera [facility] [place] 317 [place] 00:00:00 00:00:00 Jason Jeronimo MD: [address] [facility] a [address], [address] [facility], [id number] ALLAN , Ph. 2021-12-23 2021-12-23 Outpatient Daniela Jeronimo [facility] [id number] 00:00:00 00:00:00 Jody [id number] 2021-11-25 2021-11-25 Outpatient KEFFER_A [facility] [id number] 0220 [place] 02:36:00 02:36:00 217 [facility] 2021-11-23 2021-11-23 Outpatient ALLAN_A [facility] [id number] 0220 [place] 05:53:00 05:53:00 [facility] 2021-11-23 2021-11-23 Daniela Vera [facility] [place] [facility] [place] [id number] 215 [place] 00:00:00 00:00:00 Jason Jeronimo MD: [address] [facility] [address] [address] [address] [facility] [place] [place] [facility], [address] ALLAN , Ph. 2021-11-23 2021-11-23 Outpatient Daniela Jeronimo [facility] [id number] 00:00:00 00:00:00 Jody [id number] 2021-09-09 2021-09-09 Outpatient KARRIE, [facility] [id number] [place] [address] 00:00:00 00:00:00 IRFAN [address] 2021-08-12 2021-08-12 Outpatient KARRIE, [facility] [id number] [place] [address] 00:00:00 00:00:00 IRFAN [address] 2021-07-14 2021-07-14 Outpatient ALLAN_A [facility] [id number] [place] 05:58:00 05:58:00 [facility] 2021-07-14 2021-07-14 Daniela Vera [facility] [place] 006 [place] 00:00:00 00:00:00 Jason Jeronimo MD: [address] [facility] [place] [facility] [address], [facility] l [address], HOSPITAL [place], [place] CLINIC, [address] ALLAN , Ph. 2021-07-14 2021-07-14 Outpatient Daniela Jeronimo [facility] [id number] 00:00:00 00:00:00 Jody [id number] 2021-06-09 2021-06-09 Outpatient ALLAN_Jose [facility] [id number] [place] 01:11:00 01:11:00 901 [facility] 2021-06-09 2021-06-09 Outpatient ALLAN_Jose [facility] [id number] [place] 01:11:00 01:11:00 927 [facility] 2021-06-09 2021-06-09 [facility] [place] 00:00:00 00:00:00 Beto [facility] [place] MSN, OPHTHALMIC PHOTOGRAPHER, [facility] TECHNICAL MANAGER [employer]-C: [address] [place] [facility] [place], [facility], Clinic s [address], [facility] [address], BetoStefan rubio, [place] MSN, [facility] [address] , Ph. 2021-06-09 2021-06-09 Outpatient Beto [facility] [id number] 00:00:00 00:00:00 Edwin [id number] [id number] 2021-04-08 Outpatient ALLAN_Jose [facility] [id number] [place] 03:35:00 03:35:00 701 [facility] 2021-04-08 2021-04-08 Daniela Vera [facility] [place] 70 [place] 00:00:00 00:00:00 Jason Jeronimo MD: [address] [facility] a [address], [facility] l [address], HOSPITAL Clinic s [place], [place] CLINIC, [address] ALLAN , Ph. 2021-04-08 2021-04-08 Outpatient Daniela Jeronimo [facility] [id number] 00:00:00 00:00:00 Jody [id number] 2021-02-01 2021-02-01 Outpatient ALLAN_Jose [facility] [id number] [place] 04:06:00 04:06:00 426 [facility] 2021-02-01 2021-02-01 Outpatient Daniela Jeronimo [facility] [id number] 00:00:00 00:00:00 Jody [id number] 2021-02-01 2021-02-01 Daniela Vera [facility] [place] 426 [place] 00:00:00 00:00:00 Jason [facility]imo MD: [address] [facility] [address] [address], [facility], [address] ALLAN , Ph. 2020-11-05 2020-11-05 Outpatient KEFFER_A [facility] [id number] [place] 03:50:00 03:50:00 128 [facility] 2020-11-05 2020-11-05 Outpatient Daniela Jeronimo [facility] [id number] 00:00:00 00:00:00 Jody [id number] 2020-11-05 2020-11-05 Daniela Vera [facility] [place] 128 [place] 00:00:00 00:00:00 Jason Jeronimo MD: [address] [facility] [address], [facility] [address], H[facility], [address] ALLAN , Ph. 2020-10-28 2020-10-28 Outpatient ALLAN_Jose [facility] [id number] [place] 05:01:00 05:01:00 120 [facility] 2020-10-28 2020-10-28 Outpatient Daniela Jeronimo [facility] [id number] 00:00:00 00:00:00 Jody [id number] 2020-10-28 2020-10-28 Daniela Vera [facility] [place] [id number] [place] 00:00:00 00:00:00 Jason Jeronimo MD: [address] [facility] [address], [facility] [address], H[facility]PITAL [place], [place] CLINIC, [address] ALLAN , Ph. 2020-10-27 2020-10-27 Outpatient KEFFER_A [facility] [id number] [place] 09:11:00 09:11:00 119 [facility] 2020-10-06 2020-10-06 Outpatient KEFFER_A [facility] [id number] [place] 05:19:00 05:19:00 229 [facility] 2020-10-06 2020-10-06 Daniela Vera [facility] [place] 00:00:00 00:00:00 Jason Jeronimo uni MD: [address] [facility] a [address], [facility] l [address], HOSPITAL Clinic [facility], [facility], [address] ALLAN , Ph. 2020-08-26 2020-08-26 Outpatient allan_a [facility] 2019 [place] 02:26:00 02:26:00 [id number] 2018-04-03 2018-04-03 Outpatient allan_a [facility] 2019 [place] 03:30:00 03:30:00 [id number] Results Test Description Test Time Test Comments Results Result Comments Source POC glucose 2022-09-08 14:54:00 Test Item Value Reference Range Interpretation Comme [facility] POC glucose (test code = 88 mg/dL 65-99 Ope rator Name: Charles Gleason [id number]) ID: [id number] [facility]
[2023-02-15] MEDS ORDERED: ONDANSETRON 4 MG/2 ML VIAL IV PRN (19:49)
[2023-02-15] MEDS ORDERED: MORPHINE 2 MG/ML SYR IV PRN (19:49)
--- NOTE | 2023-02-15 20:00 | P.HP ---
Certification for Inpatient Patient admitted to: Inpatient With expected LOS: >2 Midnights Patient will require the following post-hospital care: None Practitioner: I am a practitioner with admitting privileges, knowledge of patient current condition, hospital course, and medical plan of care. Services: Services provided to patient in accordance with Admission requirements found in Title 42 Section 412.3 of the Code of Federal Regulations Patient History Date of Service: 02/15/23 Reason for admission: NSTEMI History of Present Illness: 82-year-old female with history of diet-controlled diabetes, osteoarthritis, presented to outside hospitals emergency department with chief complaint of chest pain, she reports 1 episode of chest pain yesterday around 2 PM associated with diaphoresis, nausea which was relieved with rest, had another episode this morning when she got out of bed described as pressure associated with diaphoresis, she was evaluated at outside hospitals ER initial high-sensitivity troponin was 53.2, repeat high sensory troponin was 96.6 also of note her D- dimer was elevated 1043, she had an allergy to iodine so CT was not able to be performed at outside hospital, she was transferred here for NSTEMI. At this point she is chest pain-free she was given aspirin prior to arrival to our hospital, she will need to be admitted for evaluation of chest pain, elevated troponin, elevated D-dimer. Allergies iodine Allergy (Verified 02/15/23 19:42) tongue swelling Home Medications: ALPRAZolam [Alprazolam] 0.25 mg PO BEDTIME 02/15/23 Ezetimibe [Zetia*] 10 mg PO DAILY 02/15/23 Potassium Chloride 10 meq PO DAILY 02/15/23 Vit C/E/Zn/Coppr/Lutein/Zeaxan [Preservision Areds 2 Chew Tab] 1 tab PO DAILY 02/15/23 prednisoLONE [Prednisolone] 5 mg PO DAILY 02/15/23 - Past Medical/Surgical History Has patient received pneumonia vaccine in the past: No Diabetic: Yes -: HTN -: Hearing loss -: CA -: Masectomy -: Hysterectomy - Social History Alcohol use: No Review of Systems 10-point ROS is otherwise unremarkable Cardiovascular: Chest Pain, Other (diaphoresis) Physical Examination - Physical Exam General: Alert, In no apparent distress, Oriented x3 HEENT: Atraumatic, PERRLA, Mucous membr. moist/pink, EOMI, Sclerae nonicteric Neck: Supple, 2+ carotid pulse no bruit, No LAD, Without JVD or thyroid abnormality Respiratory: Clear to auscultation bilaterally, Normal air movement Cardiovascular: Regular rate/rhythm, Normal S1 S2, Systolic murmur Capillary refill: <2 Seconds Gastrointestinal: Normal bowel sounds, No tenderness Musculoskeletal: No tenderness Integumentary: No rashes Neurological: Normal speech, Normal strength at 5/5 x4 extr, Normal tone, Normal affect Assessment and Plan - Plan Assessment: NSTEMI/ACS, rule out PE Diabetes mellitus type 2diet controlled Osteoarthritis Plan: NSTEMI/ACS, rule out PE Troponin trended up at outside hospital, will continue to trend she received aspirin prior to arrival to our facility, given therapeutic Lovenox here tonight. D-dimer is also elevated she has an allergy to iodine will need to have VQ scan, will also obtain bilateral venous Dopplers lower extremities. Cardiology consult in place, echocardiogram ordered. Diabetes mellitus type 2diet controlled She reports she was taken off of her diabetic medications by her PCP, will obtain A1c in the morning, provide sliding scale if blood sugars are persis tently elevated. Osteoarthritis Obtain and continue home medications as appropriate. DVT PPX: Therapeutic Lovenox Code status: Full Discharge Plan: Home Plan to discharge in: 48 Hours - Advance Directives Does patient have a Living Will: No Does patient have a Durable POA for Healthcare: No - Code Status/Comfort Care Code Status Assessed: Yes (Full code) Critical Care: No Time Spent Managing Pts Care (In Minutes): 70
--- NOTE | 2023-02-15 20:26 | RAD REPORT ---
EXAM DESCRIPTION: US - Extrem Venous W Compress Keith - 02/15/2023 8:18 pm CLINICAL HISTORY: Chest pain, elev. DD, iodine allergy, elev trop Bilateral leg edema and swelling. COMPARISON: <Comparisons> TECHNIQUE: Real-time sonographic interrogation of the left and right lower extremity deep venous sys tems was performed. FINDINGS: Normal compressibility, flow augmentation, phasic flow and spontaneous flow is identified in both the left and right lower extremity deep venous systems. IMPRESSION: No sonographic evidence of left or right lower extremity deep venous thrombosis.
[2023-02-15] MEDS ORDERED: ATORVASTATIN 20 MG TAB PO SCH (21:00)
[2023-02-15] MEDS: NA CHLORIDE 0.9% 1,000 ML IV SCH (21:23)
[2023-02-15] MEDS: ENOXAPARIN 60 MG/0.6 ML SQ SCH (22:30)
[2023-02-16 03:56] LABS: Absolute Lymphocytes (CBC) 2.5 K/uL (0.7-4.9); Hematocrit 33.2 % (36.0-45.0); Lymphocytes % 33.7 % (15.3-44.8); MCV 88.7 fL (80-100); MPV 7.4 fL (7.6-11.3); RBC Red Blood Cell Count 3.75 M/uL (3.86-4.86)
[2023-02-16 04:15] LABS: Potassium 3.2 mEq/L (3.5-5.1); Thyroid Stimulating Hormone 3.73 uIU/mL (0.358-3.740)
[2023-02-16] MEDS: KCL 20 MEQ/100 mL IVPB 20 MEQ/100 ML BAG IV SCH ×2 (05:18→09:25)
--- NOTE | 2023-02-16 06:55 | P.PN ---
Date of Service: 02/16/23 Subjective: Feeling pretty good today no chest pain or SOB this morning no acute events overnight ROS: 10 point ROS as noted above, otherwise negative Physical Exam: GEN: Alert, oriented, NAD HEENT: Normal conjunctiva, sclera anicteric CV: Regular rate and rhythm, no edema Pulm: Nonlabored respirations on room air ABD: Soft, nontender, nondistended MSK: No joint tenderness Neuro: Normal speech, normal affect vitals reviewed Problem List: NSTEMI/ACS ST2qreb controlled Osteoarthritis NSTEMI/ACS Troponin trended up at outside hospital, continue to trend she received aspirin prior to arrival to our facility, given therapeutic Lovenox here last night D-dimer is also elevated VQ scan - Likely normal or Very low probability of acute pulmonary embolism Venous Doppler - no DVT echocardiogram pending Cardiology consulted Heart cath planned 02/16 BU1gwkc controlled She reports she was taken off of her diabetic medications by her PCP A1c in the morning sliding scale if blood sugars are persistently elevated Osteoarthritis continue home medications VTE: Lovenox Code: Full Dispo: Home 1-2 days
[2023-02-16] MEDS ORDERED: predniSONE 20 MG TAB PO ONE (08:48)
[2023-02-16] MEDS ORDERED: ASPIRIN EC 81 MG TAB PO SCH (09:00)
[2023-02-16] MEDS: ENOXAPARIN 60 MG/0.6 ML SQ SCH ×2 (09:00→21:00)
--- NOTE | 2023-02-16 09:34 | RAD REPORT ---
EXAM DESCRIPTION: NM - Vent Perfusion VQ Scan - 02/16/2023 9:16 am CLINICAL HISTORY: Chest pain, elev. DD, iodine allergy, elev trop COMPARISON: No comparisons TECHNIQUE: 18.1mCi Xe-133 gas inhaled and 7.2mCi Tc-MAA IV. Planar ventilation scan was performed in posterior projection after Xe-133 gas inhalation (wash-in, e quilibrium, and wash-out phases) followed by perfusion scan with Tc-MAA IV in multiple projections. Examination is correlated with recent chest radiograph. FINDINGS: Normal ventilation with appropriate wash-out and no significant air-trapping. No mismatched segmental perfusion defect. Small peripheral nonsegmental perfusion defects bilaterally . IMPRESSION: Likely normal or Very low probability of acute pulmonary embolism. Please correlate with chest radiograph.
[2023-02-16] MEDS ORDERED: HEPA 1000U/500MLS 2,000 UNIT/1,000 ML BAG IV ONE (10:38)
[2023-02-16] MEDS ORDERED: LIDOCAINE 1% 20 ML MDV ONE (10:38)
[2023-02-16] MEDS: NA CHLORIDE 0.9% 1,000 ML IV SCH ×2 (10:43→19:44)
--- NOTE | 2023-02-16 12:48 | CON ---
Date of Consultation: 02/16/2023 Reason For Consultation: Non-STEMI. History Of Present Illness: Ms. Hernández is 82. Has a history of hypertension, diabetes, dyslipidemi a, anxiety. She came into the Emergency Room in [facility] after waking up with substernal ches t pressure, diaphoresis, pressure radiating to both arms. No nausea or vomiting. Denied PND, orthop marcela, pedal edema, palpitations, or syncope. She did have a troponin of 157, potassium of 3.2. They had called from [place] yesterday and I accepted the patient in transfer for further evaluation and tr eatment. Past Medical History: As stated above. Allergies: SHE IS ALLERGIC TO IODINE. Medications: At home include Xanax and Zetia. Review of Systems: Negative. Social History: Negative. Family History: Positive for diabetes. Physical Examination: General: Very pleasant, in no acute distress. HEENT: Negative. Neck: Supple with no bruit. Chest: Clear. Cardiac: Revealed a regular rhythm and rate. No murmurs, gallops, or rubs. Abdomen: Benign. Extremities: Revealed no clubbing, cyanosis, or edema. Diagnostic Data: Potassium 3.2. Troponin 157. EKG is nonspecific. Impression And Plan: 1.Non-ST segment elevation myocardial infarction. 2.Dyslipidemia. 3.Obesity. 4.Hypertension. 5.Diabetes. 6.Anxiety. 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 The patient received 60 mg prednisone p.o. now. She received IV Solu-Medrol d uring the catheterization that is planned today. The patient understands the risk and the benefits o f the procedure and agrees to proceed. Meanwhile, continue present regimen. Hold Lovenox. NB/MODL Voice ID: [id number] Report ID: [id number]
[2023-02-16] MEDS ORDERED: FENTANYL CITR 100 MCG/2 ML ONE (12:59)
[2023-02-16] MEDS ORDERED: DIPHENHYDRAMINE 50 MG/ML VIAL ONE (12:59)
[2023-02-16] MEDS ORDERED: MIDAZOLAM HCL 2 MG/2 ML INJ ONE (12:59)
[2023-02-16] MEDS ORDERED: METHYLPREDNISOLONE 125 MG INJ ONE (13:00)
[2023-02-16] MEDS ORDERED: HYDRALAZINE HCL 20 MG/ML VIAL ONE (13:15)
[2023-02-16] MEDS ORDERED: HEPARIN 10,000 UNIT/10 ML VIAL IV ONE ×2 (13:21→15:11)
[2023-02-16] MEDS ORDERED: CLOPIDOGREL 75 MG TABLET ONE (13:22)
[2023-02-16] MEDS ORDERED: FLUMAZENIL 0.1 MG/ML (5 mL VIAL) IV ONE (13:28)
[2023-02-16] MEDS ORDERED: NALOXONE 0.4 MG/ML VIAL ONE (13:28)
[2023-02-16] MEDS ORDERED: Phenylephrine HCl 10 MG/ML 1 ML VIAL ONE (13:36)
[2023-02-16] MEDS ORDERED: ONDANSETRON 4 MG/2 ML VIAL ONE (13:37)
[2023-02-16] MEDS ORDERED: NOREPINEPHRINE BITARTRATE/D5W 4 MG/250 ML BAG IV ONE (13:45)
[2023-02-16] MEDS ORDERED: TICAGRELOR 90 MG TABLET PO ONE (14:17)
[2023-02-16] MEDS ORDERED: ONDANSETRON 4 MG/2 ML VIAL IV PRN (16:02)
--- NOTE | 2023-02-16 16:03 | OP ---
Date of Procedure: 02/16/2023 Surgeon: ODILON SMART Procedures Performed: 1.Selective coronary angiogram. 2.Left heart catheterization. 3.Percutaneous coronary intervention of severe mid right coronary artery stenosis, which is a culpri t, 99% stenosed, used 3.5 x 16 mm Synergy drug-eluting stent. a.Percutaneous coronary intervention of severe proximal right coronary artery stenosis 80%, used 3.5 x 16 mm Synergy drug-eluting stent. Indication: Qmn-OI-gakxpzkpo myocardial infarction. Access: Right femoral artery 6-Honduran closed with manual pressure. Complications: Patient had the anaphylactic reaction to the contrast, but she was resuscitated appro priately and she has maintained acceptable blood pressure, requiring Levophed. Description Of Procedure: After risks, benefits, and alternatives were explained, patient agreed to procedure and signed informal consent. Patient was brought into the cardiac catheterization laborato ry, prepped and draped in a sterile fashion. She received prednisone by mouth 60 mg prior to coming in here and I gave her 125 mg IV plus 50 mg of Benadryl and then we accessed the right femoral artery using micropuncture kit, ultrasound guidance and fluoroscopy and placed a 6-Honduran Tennga sheath a nd took 6-Honduran JL4 catheter into the aortic root, engaged left main, took standard views, and then exchanged for a 6-Honduran JR4 catheter, engaged the RCA and took standard views and then the catheter was pushed over the wire into the LV, measured the LVEDP, and pullback did not record any gradient. Subsequently, exchanged for 6-Honduran JR4 guide with side holes and gave systemic heparin to assure AC T level above 250. She was loaded with 600 mg of Plavix and 325 mg of aspirin and then took a Run-Th rough wire into the RCA, placed it distally, lesion in the midportion expanded very quickly to balloo n angioplasty and then placed 3.5 x 16 mm Synergy drug-eluting stent and then the same thing, the pro ximal lesion also expanded very well with the compliant balloon and then placed 3.5 x 16 mm Synergy d rug-eluting stent with excellent results. Shortly after procedure, she became severely hypotensive a nd I took a final picture of the RCA and there was a ZAIDA-3 flow and no complications, no perforation or any dissection. However, she is highly allergic to iodine, so this is likely anaphylactic reacti on to iodine. She was given a few doses of Hay-Synephrine, blood pressure stabilized and then starte d to drift down again, so started on Levophed drip and sustained a good blood pressure. I kept the f emoral access in place for close hemodynamic monitoring. I will admit to ICU. Findings: 1.Left main; large and normal. 2.LAD, normal proximal segment. In the mid segment, there is a long 60% stenosis and then in mid to distal, there is focal 80% and then the very distal, there is 80% stenosis. 3.Left circumflex: It is a moderate-sized vessel, [id number] with proximal 50% stenosis, and then the OM1 branch, there is a branch comes off it has proximal 80% stenosis and the circ itself be comes very small. 4.RCA; very large and dominant, has proximal 80% stenosis, status post successful PCI and then has m id 99% stenosis, which is a culprit for PA, status post successful PCI. 5.Elevated LVEDP at 22 mmHg. Conclusion: 1.Severe RCA stenosis, which is a culprit for the PA, status post successful PCI as above. 2.Severe mid and distal LAD stenosis, likely she will be treated medically. 3.A branch of the OM stenosis also will be treated medically. Plan: Brilinta and aspirin and statin, and stress test as an outpatient. Shortly after the PCI on the RCA, she vomited all the that was given, so she was reloaded with Brilinta 180 mg. SR/MODL Voice ID: [id number] Report ID: [id number]
[2023-02-16] MEDS ORDERED: NOREPINEPHRINE BITARTRATE IV SCH (16:15)
[2023-02-16] MEDS ORDERED: D5W IV SCH (16:15)
[2023-02-16] MEDS ORDERED: NOREPINEPHRINE BITARTRATE/D5W 4 MG/250 ML BAG IV SCH (18:00)
[2023-02-16] MEDS: ATORVASTATIN 40 MG TAB PO SCH (21:00)
[2023-02-16] MEDS: TICAGRELOR 90 MG TABLET PO SCH (22:00)
[2023-02-16] MEDS ORDERED: HALOPERIDOL LACT 5 MG/ML INJ IV PRN (22:43)
[2023-02-17] MEDS ORDERED: HALOPERIDOL LACT 5 MG/ML INJ IV ONE (01:54)
[2023-02-17] MEDS ORDERED: HALOPERIDOL LACT 5 MG/ML INJ ONE (02:06)
--- NOTE | 2023-02-17 05:35 | EKG ---
Test Date: 2023-02-16 Test Time: 14:20:20 Hvac Estimator: KELLI MEASUREMENT RESULTS: Intervals: Rate: 106 MT: 198 QRSD: 96 QT: 356 QTc: 472 Sebec: P: 69 MT: 198 QRS: 1 T: 83 INTERPRETIVE STATEMENTS: Sinus tachycardia Nonspecific ST and T wave abnormality Abnormal ECG Compared to ECG 06/11/2002 12:20:00 ST (T wave) deviation now present Sinus rhythm no longer present Myocardial infarct finding no longer present Electronically Signed On 02-17-23 05:33:05 CDT by Morro Cano
[2023-02-17 05:48] LABS: Hematocrit 31.6 % (36.0-45.0); Lymphocytes % 9.1 % (15.3-44.8); MCV 89.6 fL (80-100); MPV 7.4 fL (7.6-11.3); RBC Red Blood Cell Count 3.52 M/uL (3.86-4.86)
[2023-02-17 06:06] LABS: Potassium 3.4 mEq/L (3.5-5.1)
--- NOTE | 2023-02-17 06:59 | P.PN ---
Date of Service: 02/17/23 Subjective: Trasfered to the ICU yesterday Had an anaphylactic reaction to contrast yesterday Feeling much better today per nurses, mentation is back to normal not in any pain this afternoon right femoral sheathe removed today ROS: 10 point ROS as noted above, otherwise negative Physical Exam: GEN: Alert, oriented, NAD HEENT: Normal conjunctiva, sclera anicteric CV: Regular rate and rhythm, no edema Pulm: Nonlabored respirations on room air ABD: Soft, nontender, nondistended Neuro: Normal speech, normal affect vitals reviewed Problem List: NSTEMI/ACS anapylactic reaction to contrast [id number] controlled Osteoarthritis NSTEMI/ACS echocardiogram - notes very poor windows; normal left ventricular ejection fraction Cardiology consulted s/p Heart cath 02/16 Severe RCA stenosis: 80% stenosis, and then has mid 99% stenosis, which is a culprit for DE, status post successful PCI. Severe mid and distal LAD stenosis continue Brilinta, aspirin, and statin Dr. Holt recommends outpatient stress test after discharge anapylactic reaction to contrast required levophed for a few hours, off since arrival to ICU on 02/16 monitor closely through today femoral sheath removed today, bed rest, monitor for bleeding [id number] controlled She reports she was taken off of her diabetic medications by her PCP A1c in the morning sliding scale if blood sugars are persistently elevated Osteoarthritis continue home medications VTE: Hold Lovenox Code: Full Dispo: Home, likely tomorrow
--- NOTE | 2023-02-17 07:16 | ECHO ---
HEIGHT: 5 ft 7 in WEIGHT: 139 lb 15.897 oz DATE OF STUDY: 02/16/[address]: Pedro Luis Zurita NP 2-DIMENSIONAL: YES M.MODE: YES DOPPLER: YES COLOR FLOW: YES TDS: NO PORTABLE: YES DEFINITY: NO BUBBLE STUDY: NO DIAGNOSIS: NSTEMI, MURMUR CARDIAC HISTORY: CATHERIZATION:YES SURGERY: NO PROSTHETIC VALVE: NO PACEMAKER: NO MEASUREMENTS (cm) DIASTOLIC (NORMALS) SYSTOLIC (NORMALS) IVSd (0.6-1.2) LA Diam (1.9-4.0) LVEF % LVIDd (3.5-5.7) LVIDs (2.0-3.5) %FS % LVPWd (0.6-1.2) Ao Diam (2.0-3.7) 2 DIMENSIONAL ASSESSMENT: RIGHT ATRIUM: POOR WINDOWS LEFT ATRIUM: POOR WINDOWS RIGHT VENTRICLE: LEFT VENTRICLE: TRICUSPID VALVE: MITRAL VALVE: PULMONIC VALVE: AORTIC VALVE: PERICARDIAL EFFUSION: AORTIC ROOT: LEFT VENTRICULAR WALL MOTION: DOPPLER/COLOR FLOW: COMMENTS: 1. VERY POOR WINDOWS. 2. OVERALL LEFT VENTRICULAR EJECTION FRACTION APPEARS NORMAL. 3. MILD TRICUPSID REGURGITATION. TECHNOLOGIST: Marlen RODRIGUEZ
[2023-02-17 07:26] VITALS: O2SAT 98
[2023-02-17] MEDS: ASPIRIN EC 81 MG TAB PO SCH (08:06)
[2023-02-17] MEDS: KCL 20 MEQ/100 mL IVPB 20 MEQ/100 ML BAG IV SCH ×2 (08:06→11:15)
[2023-02-17] MEDS: NA CHLORIDE 0.9% 1,000 ML IV SCH ×2 (08:57→20:42)
[2023-02-17] MEDS: TICAGRELOR 90 MG TABLET PO SCH ×2 (10:55→20:43)
--- NOTE | 2023-02-17 11:36 | PN ---
Ms. Hernández came in with the non-STEMI, underwent a heart catheterization yesterday and had a stent o f her proximal RCA and mid RCA. She did very well during the procedure. Following the procedure, be came slightly hypotensive. Was observed in the ICU overnight, placed on the Levophed temporarily. T his morning, she has no problem. She had no complaint. She is in sinus rhythm. Normal blood pressu re. Her groin entry site is adequate without any hematoma. She should go home today on her home med ications plus Brilinta. We will see her in the office in the next 2 weeks. ROXANNE/MARQUES Voice ID: [id number] Report ID: [id number]
[2023-02-17] MEDS ORDERED: MELATONIN 5 MG TABLET PO PRN (20:31)
[2023-02-17] MEDS: ATORVASTATIN 40 MG TAB PO SCH (20:43)
[2023-02-18 05:21] VITALS: BMI 21.7
[2023-02-18 05:27] LABS: Absolute Lymphocytes (CBC) 1.7 K/uL (0.7-4.9); Hematocrit 29.4 % (36.0-45.0); Lymphocytes % 12.4 % (15.3-44.8); MCV 89.8 fL (80-100); MPV 7.2 fL (7.6-11.3); RBC Red Blood Cell Count 3.27 M/uL (3.86-4.86)
[2023-02-18 05:34] LABS: Potassium 3.6 mEq/L (3.5-5.1)
[2023-02-18] MEDS ORDERED: POTASSIUM CL SA 10 MEQ TAB PO ONE (05:39)
--- NOTE | 2023-02-18 06:55 | P.PN ---
Date of Service: 02/18/23 Subjective: ROS: 10 point ROS as noted above, otherwise negative Physical Exam: GEN: Alert, oriented, NAD HEENT: Normal conjunctiva, sclera anicteric CV: Regular rate and rhythm, no edema Pulm: Nonlabored respirations on room air ABD: Soft, nontender, nondistended Neuro: Normal speech, normal affect vitals reviewed Problem List: NSTEMI/ACS anapylactic reaction to contrast [id number] controlled Osteoarthritis NSTEMI/ACS echocardiogram - notes very poor windows; normal left ventricular ejection fraction Cardiology consulted s/p Heart cath 02/16 Severe RCA stenosis: 80% stenosis, and then has mid 99% stenosis, which is a culprit for MT, status post successful PCI. Severe mid and distal LAD stenosis continue Brilinta, aspirin, and statin Dr. Holt recommends outpatient stress test after discharge anapylactic reaction to contrast required levophed for a few hours, off since arrival to ICU on 02/16 monitor closely through today femoral sheath removed today, bed rest, monitor for bleeding [id number] controlled She reports she was taken off of her diabetic medications by her PCP A1c in the morning sliding scale if blood sugars are persistently elevated Osteoarthritis continue home medications VTE: Hold Lovenox Code: Full Dispo: Home, likely tomorrow
--- NOTE | 2023-02-18 07:13 | P.DS ---
Admission Date: 02/15/23 Discharge Date: 02/18/23 Disposition: ROUTINE DISCHARGE Discharge Condition: GOOD Reason for Admission: NSTEMI Consultations: Cardiology - /Dr. Cano Brief History of Present Illness: 82yo F, PMH: diet-controlled diabetes, osteoarthritis, presented to outside hospitals emergency department with chief complaint of chest pain, she reports 1 episode of chest pain yesterday around 2 PM associated with diaphoresis, nausea which was relieved with rest, had another episode this morning when she got out of bed described as pressure associated with diaphoresis, she was evaluated at outside hospitals ER initial high-sensitivity troponin was 53.2, repeat high sensory troponin was 96.6 also of note her D-dimer was elevated 1043, she had an allergy to iodine so CT was not able to be performed at outside hospital, she was transferred here for NSTEMI. At this point she is chest pain-free she was given aspirin prior to arrival to our hospital, she will need to be admitted for evaluation of chest pain, elevated troponin, elevated D-dimer. Hospital Course: Problem List: NSTEMI, 99% RCA stenosis anapylactic reaction to contrast [id number] controlled Osteoarthritis Patient presented with chest pain, found to have NSTEMI. Cardiology consulted and patient underwent cardiac catheterization which revealed 99% stenosis of her RCA. She underwent successful PCI/stent placementx2. She was noted to have an iodine allergy, was premedicated still developed a significant reaction to contrast given during the procedure. This led to a brief period of hypotension. Multiple medications were administered, and patient required Levophed for few hours. Postoperatively she was monitored in the ICU. She stabilized within a few hours and was off the Levophed as time she arrived to the ICU. She continued to do well postoperatively, was deemed stable for discharge home. New prescriptions: Aspirin, atorvastatin, metoprolol, Brilinta Resume home medications as previously prescribed Follow-up: PCP within 1 week Cardiology 2-3 weeks, plan for outpatient stress test in future for LAD stenosis Cath report (02/16): 1. Left main; large and normal. 2. LAD, normal proximal segment. In the mid segment, there is a long 60% stenosis and then in mid to distal, there is focal 80% and then the very distal, there is 80% stenosis. 3. Left circumflex: It is a moderate-sized vessel, [id number] with proximal 50% stenosis, and then the OM1 branch, there is a branch comes off it has proximal 80% stenosis and the circ itself becomes very small. 4. RCA; very large and dominant, has proximal 80% stenosis, status post successful PCI and then has mid 99% stenosis, which is a culprit for MN, status post successful PCI. 5. Elevated LVEDP at 22 mmHg. Conclusion: 1. Severe RCA stenosis, which is a culprit for the MN, status post successful PCI as above. 2. Severe mid and distal LAD stenosis, likely she will be treated medically. 3. A branch of the OM stenosis also will be treated medically. Physical Exam: GEN: Alert, oriented, NAD HEENT: Normal conjunctiva, sclera anicteric CV: Regular rate and rhythm, no edema Pulm: Nonlabored respirations on room air ABD: Soft, nontender, nondistended Neuro: Normal speech, normal affect Vital Signs/Physical Exam: Temp Pulse Resp BP Pulse Ox 97.2 F 76 25 H 146/56 H 98 02/18/23 04:00 02/18/23 05:00 02/18/23 05:00 02/18/23 05:00 02/17/23 18:00 Laboratory Data at Discharge: WBC 13.60 thou/uL (4.3-10.9) H 02/18/23 04:50 Hgb 9.8 g/dL (12.0-15.0) L 02/18/23 04:50 Hct 29.4 % (36.0-45.0) L 02/18/23 04:50 Plt Count 252 thou/uL (152-406) 02/18/23 04:50 Sodium 138 mEq/L (136-145) 02/18/23 04:50 Potassium 3.6 mEq/L (3.5-5.1) 02/18/23 04:50 BUN 19 mg/dL (7-18) H 02/18/23 04:50 Creatinine 0.67 mg/dL (0.55-1.02) 02/18/23 04:50 Glucose 146 mg/dL (74-106) H 02/18/23 04:50 Triglycerides 207 mg/dL (<150) H 02/16/23 02:52 Cholesterol 238 mg/dL (<200) H 02/16/23 02:52 HDL Cholesterol 42 mg/dL (40-60) 02/16/23 02:52 Cholesterol/HDL Ratio 5.67 02/16/23 02:52 Home Medications: ALPRAZolam [Alprazolam] 0.25 mg PO BEDTIME 02/15/23 Ezetimibe [Zetia*] 10 mg PO DAILY 02/15/23 Potassium Chloride 10 meq PO DAILY 02/15/23 Vit C/E/Zn/Coppr/Lutein/Zeaxan [Preservision Areds 2 Chew Tab] 1 tab PO DAILY 02/15/23 prednisoLONE [Prednisolone] 5 mg PO DAILY 02/15/23 Aspirin [Aspirin EC 81 MG] 81 mg PO DAILY #30 tab 02/18/23 Atorvastatin Calcium [Lipitor] 40 mg PO BEDTIME 30 Days #30 tab 02/18/23 Metoprolol Tartrate [Lopressor*] 0.5 tab PO BID 30 Days #30 tab 02/18/23 Ticagrelor [Brilinta*] 90 mg PO BID 30 Days #60 tab 02/18/23 New Medications: Aspirin [Aspirin EC 81 MG] 81 mg PO DAILY #30 tab Ticagrelor [Brilinta*] 90 mg PO BID 30 Days #60 tab Atorvastatin Calcium [Lipitor] 40 mg PO BEDTIME 30 Days #30 tab Metoprolol Tartrate [Lopressor*] 0.5 tab PO BID 30 Days #30 tab Physician Discharge Instructions: Patient presented with chest pain, found to have NSTEMI. Cardiology consulted and patient underwent cardiac catheterization which revealed 99% stenosis of her RCA. She underwent successful PCI/stent placement. She was noted to have an iodine allergy, was premedicated still developed a significant reaction to contrast given during the procedure. This led to a brief period of hypotension. Multiple medications were administered, and patient required Levophed for few hours. Postoperatively she was monitored in the ICU. She stabilized within a few hours and was off the Levophed as time she arrived to the ICU. She continued to do well postoperatively, was deemed stable for discharge home. New prescriptions: Aspirin, atorvastatin, metoprolol, Brilinta Resume home medications as previously prescribed Follow-up: PCP within 1 week Cardiology 2-3 weeks Diet: AHA Activity: Ad theresa Followup: Morro Cano MD [ACTIVE - CAN ADMIT] - 1-2 Weeks Time spent managing pt's care (in minutes): 45
[2023-02-18] MEDS: ASPIRIN EC 81 MG TAB PO SCH (08:02)
[2023-02-18] MEDS: TICAGRELOR 90 MG TABLET PO SCH (08:03)
[2023-02-18 09:15] VITALS: TEMP 96.9
[2023-02-18 09:16] VITALS: BP 120/51
== END 2023-02-18 09:45 | disposition home or self-care (01) | DRG 247 ==
LOC: 2ND 18:54 → 3RD-ICU 02-16 16:58
PROVIDERS: ADMIT Hospitalist; ATTEND Hospitalist
PROC: B2111ZZ Fluoroscopy of Multiple Coronary Arteries using Low Osmolar Contrast (ICD-10-PCS; principal; 2023-02-17)
PROC: 027135Z Dilation of Coronary Artery, Two Arteries with Two Drug-eluting Intraluminal Devices, Percutaneous Approach (ICD-10-PCS; 2023-02-17)
PROC: 4A023N7 Measurement of Cardiac Sampling and Pressure, Left Heart, Percutaneous Approach (ICD-10-PCS; 2023-02-17)
DX: I21.4 Non-ST elevation (NSTEMI) myocardial infarction (principal); I97.88 Other intraoperative complications of the circulatory system, not elsewhere classified; T88.6XXA Anaphylactic reaction due to adverse effect of correct drug or medicament properly administered, initial encounter; I10 Essential (primary) hypertension; E11.9 Type 2 diabetes mellitus without complications; M19.90 Unspecified osteoarthritis, unspecified site; H91.90 Unspecified hearing loss, unspecified ear; Z85.9 Personal history of malignant neoplasm, unspecified; Z90.10 Acquired absence of unspecified breast and nipple; Z90.710 Acquired absence of both cervix and uterus; F41.9 Anxiety disorder, unspecified; Y84.0 Cardiac catheterization as the cause of abnormal reaction of the patient, or of later complication, without mention of misadventure at the time of the procedure; Y92.234 Operating room of hospital as the place of occurrence of the external cause; Z91.041 Radiographic dye allergy status; T49.0X5A Adverse effect of local antifungal, anti-infective and anti-inflammatory drugs, initial encounter
CPT/HCPCS: 36415; 76937; 78582; 80048; 80061; 82947; 83036; 84132; 84439; 84443; 84484; 85025; 85347; 93005; 93306; 93458; 93970; A9540; A9558; C1725; C1893; C9600; J0360; J1200; J1630; J1650; J2001; J2250; J2310; J2370; J2405; J2930; J3010; J3480; J7030; J7512; Q9967

== ENCOUNTER 2023-05-22 12:32 | Inpatient (IN) | payer OTHER ==
--- OUTSIDE RECORDS SUMMARY | 2023-05-22 12:41 | XMS REPORT | Continuity of Care Document ---
:1940 Author Organization [facility] t Address [address] [facility] [address] [place] [address] Care Team Providers Name Role Phone Daniela Jeronimo MD Primary Care Physician PENNY Attending Clinician Unavailable Suhail Mock MD Attending Clinician Armin Ocampo MD Attending Clinician Daniela Jeronimo Attending Clinician [phone] Rosa Kimball Attending Clinician Unavailable Provider , Not In System Attending Clinician Unavailable Cynthia Crespo MA Attending Clinician Unavailable Edwin Pérez Attending Clinician [phone] allan_joes Attending Clinician Unavailable ALLAN_Jose Admitting Clinician Unavailable SUHAIL MOCK Admitting Clinician Unavailable penny Admitting Clinician Unavailable Payers Payer Name Policy Type Policy Number Effective Date Expiration Date Hipolito figueroa MEDICARE B-[place]: [id number] 2005 [employer] 00:00:00 WEB-TPA [id number] 2013 00:00:00 WEB TPA (MEDICARE [id number] SUPPLEMENT) [facility] [id number] [employer] (SECONDARY) Problems Condition Condition Condition Status Onset Resolution Last Treating Co mments Source Name Details Category Date Date Treatment Clinician Date Coronary Coronary Problem Active [facility] atheroscle Atheroscle 5-18 [facility] rosis rosis 00:00: ty 00 [facility] Osteoarthr Osteoarthr Problem Active S randa itis itis 3-29 [facility]i 00:00: ty 00 [facility] Increased Increased Problem Active Swe tristian frequency Frequency 3-29 Comm uni of of 00:00: ty urination Urination 00 [facility]osp [facility] l Clinics Pain in Pain in Problem Active [facility] lower limb Lower Limb 1-04 Co [facility]i 00:00: ty 00 [facility] Type 2 Type 2 Problem Active [facility] diabetes Diabetes 9-13 Commun i mellitus Mellitus [...] y of left of Left 8-09 Communi arm Arm 00:00: ty 00 Hospita [...] Hospita l Clinics [place] Problem Active [facility] 3-17 [facility] 00:00: ty 00 [facility] Anxiety Anxiety Problem Active [facility] 2-15 [facility] 00:00: ty 00 [facility] Left side Left Side Problem Active 2020-10 [facility] sciatica Sciatica 0-06 Commun i 00:00: ty 00 [facility] Urinary Urinary Problem Active [facility] incontinen Incontinen 1-20 [facility] ce ce 00:00: ty 00 [facility] Clin[facility] Numbness Numbness Problem Active Sween y of hand of Hand 06-09 Communi 00:00: ty 00 [facility] Long-term Long-term Problem Active [facility] tr[facility] drug Drug 8-19 [facility]i therapy Therapy 00:00: ty 00 [facility] Indigestio Indigestio Problem Active S weeny n n 5-15 Communi 00:00: ty 00 [facility] Muscle Muscle Problem Active [facility] weakness Weakness 5-15 Commun i 00:00: ty 00 [facility] Osteoporos Osteoporos Problem Active S weeny is is 5-15 Communi 00:00: ty 00 [facility] Abdominal Abdominal Problem Active [facility]ian pain Pain 5-15 Communi 00:00: ty 00 [facility] Knee pain Knee Pain Problem Active Swe tristian 9-20 Communi 00:00: ty 00 [facility] Hand pain Hand Pain Problem Active Swe tristian 9-20 Communi 00:00: ty 00 [facility] Malaise Malaise Problem Active [facility] 9-20 [facility]i 00:00: ty 00 [facility] Urge Urge Problem Active [facility] incontinen Incontinen 9-20 Co mmuni ce of ce of 00:00: ty urine Urine 00 [facility] Upper Upper Problem Active [facility] respirator Respirator 5-10 Co mmuni y y 00:00: ty infection Infection 00 [facility] 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 [facility]:00: ty [facility] Urinary Urinary Problem Active [facility] tract Tract 5-10 [facility]i infectious Infectious 00:00: ty disease Disease 00 [facility] Type 2 Type 2 Problem Active [facility] diabetes Diabetes 3-29 Commun i mellitus Mellitus 00:00: ty 00 [facility] Hypertensi Hypertensi Problem Active S weeny ve ve 3-29 Communi disorder Disorder 00:00: ty 00 [facility] Allergies, Adverse Reactions, Alerts Allergy Allergy Status Severity Reaction(s) Onset Inactive Treating Comm ents Source Name Type Date Date Clinician Jessica Yusuf Active Altered 2020-10 Metho di xacin ty to Mental 11-10 st adverse Status 00:00: Hospita reaction 00 l s to drug Iodine Propensi Active Swelling 2020-10 Method i ty to 11-10 st adverse 00:00: Hospita reaction 00 l s to drug Cipro Allergy Active Moderate Confusion Swee ny to Communi substanc ty e Hospita l Clinics Iodine Allergy Active [facility] to [facility] sub[facility] ty e Hospita l Clinics Family History Family Member Diagnosis Comments Start Date Stop Date Source Natural mother [facility] Social History Social Habit Start Date Stop Date Quantity Comments Source Gender identity [facility] Alcohol intake 2022-09-09 2022-09-09 Current drinker of [facility] 00:00:00 00:00:00 alcohol (finding) Hospita l History of Social 2022-09-09 2022-09-[address] function 00:00:00 00:00:00 Hospital Tobacco use and 2021-08-12 2021-08-12 Smokeless tobacco [facility] exposure 00:00:00 00:00:00 [facility]user [facility] Alcohol Comment 2021-08-12 2021-08-[address] 00:00:00 00:00:00 Hospital Sex Assigned At [birth year] [facility] Smoking Status Start Date Stop Date Source Never smoked tobacco [facility] Medications Ordered Filled Start Stop Current Ordering Indication Dosage Frequency Signature Comments Components Source Medication Medication Date Date Medication? Clinician (SIG) Name Name cyanocobaljose cyanocobala No cyanocobal [facility] min (vit min (vit 7-17 villafana (vit Co m[facility]i B-12) 1,000 B-12) 1,000 16:17: B-12) ty mcg/mL mcg/mL 51 1,000 Hospita injection injection mcg/mL l solutionInj solutionInj injection Clinics ect 1 mL ect 1 mL solutionIn every month every month ject 1 mL by by every subcutaneou subcutaneou month by s route. s route. subcutaneo us route. acetaminoph 2021-10 Yes Take 2 Meth ameya en (TYLENOL 2-[address] ARTHRITIS 10:39: tablet(s) [facility] [place] ORAL) 02 by mouth. l acetaminoph 2021-10 Yes Take 2 Meth ameya [...] 1 l TABLET BY MOUTH EVERY DAY ALPRAZolam 2021-10 Yes .25mg QD Take 0.25 [...] EVERY DAY cyanocobala cyanocobala 2021-10 No cyanocobal [facility] min (vit min (vit 0-04 villafana (vit Co mmuni B-12) 1,000 B-12) 1,000 15:17: B-12) ty mcg/mL mcg/mL 23 1,000 Hospita injection injection mcg/mL l solutionInj solutionInj injection Clinics ect 1 mL ect 1 mL solutionIn every month every month ject 1 mL by by every subcutaneou subcutaneou month by s route. s route. subcutaneo us route. cyanocobala cyanocobala 2021-10 No cyanocobal [facility] min (vit min (vit 0-04 villafana (vit Co mmuni B-12) 1,000 B-12) 1,000 15:17: B-12) ty mcg/mL mcg/mL 23 1,000 Hospita injection injection mcg/mL l solutionInj solutionInj injection Clinics ect 1 mL ect 1 mL solutionIn every month every month ject 1 mL by by every subcutaneou subcutaneou month by s route. s route. subcutaneo us route. cyanocobala cyanocobala No cyanocobal [facility] min (vit min (vit 9-13 villafana (vit Co mmuni B-12) 1,000 B-12) 1,000 10:04: B-12) ty mcg/mL mcg/mL 17 1,000 Hospita injection injection mcg/mL l solutionInj solutionInj injection Clinics ect 1 mL ect 1 mL solutionIn every month every month ject 1 mL by by every subcutaneou subcutaneou month by s route. s route. subcutaneo us route. cyanocobala cyanocobala No cyanocobal [facility] min (vit min (vit 8-17 villafana (vit Co mmuni B-12) 1,000 B-12) 1,000 14:00: B12) ty mcg/mL mcg/mL 50 1,000 Hospita injection injection mcg/mL l solutionInj solutionInj injection Clinics ect 1 mL ect 1 mL solutionIn every month every month ject 1 mL by by every subcutaneou subcutaneou month by s route. s route. subcutaneo us route. diphenoxyla 2021- No [id number] 1{tbl} Q.25D Take 1 Method[facility] te-atropine 8-10 09-[address] (LomotiL) 00:00: 04:59 mouth 4 Hosp cb 2.5-0.025 00 :00 (four) l mg per times a tablet day as needed for diarrhea for up to 30 days. diphenoxyla 2021- No [id number] 1{tbl} Q.25D Take 1 [facility] te-atropine 8-10 09-[address] (LomotiL) 00:00: 04:59 mouth 4 Hosp cb 2.5-0.025 00 :00 (four) l mg per times a tablet day as needed for diarrhea for up to 30 days. traMADoL 2021- No [id number] 50mg Q6H Take 50 mg M ethodi (ULTRAM) 50 04-[address] mg tablet 16:50: 00:00 every 6 Hosp cb 28 :00 (six) l hours as needed for moderate pain .acute pain. mirabegron 2021- No 25mg Take 25 mg [facility] 25 mg 04-[address] tablet 16:50: 00:00 Hospita extended 18 :00 l release 24 hr nitrofurant nitrofurant No nitrofuran [facility] oin oin 03-14 toin Communi monohydrate monohydrate [...] FOR PREVENTION OFUTI nitrofurant nitrofurant No nitrofuran [facility] oin oin 03-14 toin Communi monohydrate monohydrate [...] FOR PREVENTION OFUTI nitrofurant nitrofurant No nitrofuran [facility] oin oin 03-14 toin Communi monohydrate monohydrate [...] Kenalog 40 Kenalog 40 No Kenalog 40 [facility] mg/mL mg/mL 4-26 mg/mL Communi suspension suspension 14:12: suspension ty for for 34 for Hospita injectionTa injectionTa injectionT l ke 2 mL by ke 2 mL by regine 2 mL Clinics injection injection by route. route. injection route. Myrbetriq Myrbetriq No 1 Q1D Myrbetriq [facility] 25 mg 25 mg 25 mg [facility]i tablet,exte tablet,exte tablet,ext ty nded nded ended Hospita release release release l Take 1 Take 1 Take 1 Clinics tablet tablet tablet every day every day every day by oral by oral by oral route at route at route at bedtime. bedtime. bedtime. Prolia 60 Prolia 60 No Prolia 60 [facility] mg/mL mg/mL mg/mL Communi subcutaneou subcutaneou subcutaneo ty s syringe 1 s syringe 1 us syringe Hospita ML SUBQ ML SUBQ 1 ML SUBQ l every 6 every 6 every 6 Clinic s months / months / months / m81.0 m81.0 m81.0 osteoporosi osteoporosi osteoporos s / inj s / inj is / inj code 34734 code 54576 code 62540 sertraline sertraline No sertraline [facility] 25 mg 25 mg 25 mg Communi [...] INJECTIONS INJECTIONS INJECTIONS alprazolam alprazolam No alprazolam [facility] 0.25 mg 0.25 mg 0.25 mg Commun i tablet TAKE tablet TAKE tablet ty 1 TABLET BY 1 TABLET BY TAKE 1 Hospita MOUTH EVERY MOUTH EVERY TABLET BY l NIGHT AT NIGHT AT MOUTH Clinic s BEDTIME BEDTIME EVERY NIGHT AT BEDTIME amoxicillin amoxicillin No amoxicilli [facility] [phone] n 875 Communi mg-potassiu mg-potassiu [...] oral route days. days. for 10 days. N16-[id number] L49-Otkpc No 1 Q1D Y20-Dgfrs [facility] 1,000 mcg 1,000 mcg 1,000 mcg Communi tablet Take tablet Take tablet ty 1 tablet 1 tablet Take 1 Hospi ta every day every day tablet l by oral by oral every day Clin ics route. route. by oral route. cyanocobala cyanocobala No 1mL cyanocobal [facility] min (vit min (vit villafana (vit Co mmuni B-12) 1,000 B-12) 1,000 B-12) ty mcg/mL mcg/mL 1,000 Hospita injection injection mcg/mL l solution solution injection Cl inics Inject 1 mL Inject 1 mL solution every month every month Inject 1 by by mL every subcutaneou subcutaneou month by s route. s route. subcutaneo us route. Lantus Lantus No Lantus [facility] Solostar Solostar Solostar Com shadi U-100 U-100 [...] SKIN EVERY DAY levothyroxi levothyroxi No levothyrox [facility] ne 25 mcg ne 25 mcg ine 25 mcg Communi tablet TAKE tablet TAKE tablet ty 1 TABLET BY 1 TABLET BY TAKE 1 Hospita MOUTH EVERY MOUTH EVERY TABLET BY l DAY DAY MOUTH Clinics EVERY DAY lisinopril lisinopril No lisinopril [facility] 10 mg 10 mg 10 mg Communi tablet Take tablet Take tablet ty 1 tablet 1 tablet Take 1 Hospi ta every day every day tablet l by oral by oral every day Clin ics route. route. by oral route. Multi For Multi For No Multi For [facility] Her Her Her Communi ty Hospita l Clinics Myrbetriq Myrbetriq No 1 Q1D Myrbetriq [facility] 25 mg 25 mg 25 mg Communi tablet,exte tablet,exte tablet,ext ty nded nded ended Hospita release release release l Take 1 Take 1 Take 1 Clinics tablet tablet tablet every day every day every day by oral by oral by oral route at route at route at bedtime. bedtime. bedtime. Prolia 60 Prolia 60 No Prolia 60 [facility] mg/mL mg/mL mg/mL Communi subcutaneou subcutaneou subcutaneo ty s syringe 1 s syringe 1 us syringe Hospita ML SUBQ ML SUBQ 1 ML SUBQ l every 6 every 6 every 6 Clinic s months / months / months / m81.0 m81.0 m81.0 osteoporosi osteoporosi osteoporos s / inj s / inj is / inj code 36999 code 02857 code 08922 sertraline sertraline No sertraline [facility] 25 mg 25 mg 25 mg Communi [...] INJECTIONS INJECTIONS INJECTIONS alprazolam alprazolam No alprazolam [facility] 0.25 mg 0.25 mg 0.25 mg Commun i tablet TAKE tablet TAKE tablet ty 1 TABLET BY 1 TABLET BY TAKE 1 Hospita MOUTH EVERY MOUTH EVERY TABLET BY l NIGHT AT NIGHT AT MOUTH Clinic s BEDTIME BEDTIME EVERY NIGHT AT BEDTIME amoxicillin amoxicillin No amoxicilli [facility] [id number] n 875 Communi mg-potassiu mg-potassiu [...] oral route days. days. for 10 days. T59-Fjqwp C16-Ncmml No 1 Q1D P08-Celhn [facility] 1,000 mcg 1,000 mcg 1,000 mcg Communi tablet Take tablet Take tablet ty 1 tablet 1 tablet Take 1 Hospi ta every day every day tablet l by oral by oral every day Clin ics route. route. by oral route. cyanocobala cyanocobala No 1mL cyanocobal [facility] min (vit min (vit villafana (vit Co mmuni B-12) 1,000 B-12) 1,000 B-12) ty mcg/mL mcg/mL 1,000 Hospita injection injection mcg/mL l solution solution injection Cl inics Inject 1 mL Inject 1 mL solution every month every month Inject 1 by by mL every subcutaneou subcutaneou month by s route. s route. subcutaneo us route. Kenalog 40 Kenalog 40 No 2mL Kenalog 40 [facility] mg/mL mg/mL mg/mL Communi suspension suspension suspension ty for for for Hospita injection injection injection l Take 2 mL Take 2 mL Take 2 mL Clinics by by by injection injection injection route. route. route. Lantus Lantus No Lantus [facility] Solostar Solostar Solostar Com shadi U-100 U-100 [...] SKIN EVERY DAY levothyroxi levothyroxi No levothyrox [facility] ne 25 mcg ne 25 mcg ine 25 mcg Communi tablet TAKE tablet TAKE tablet ty 1 TABLET BY 1 TABLET BY TAKE 1 Hospita MOUTH EVERY MOUTH EVERY TABLET BY l DAY DAY MOUTH Clinics EVERY DAY lisinopril lisinopril No lisinopril [facility] 10 mg 10 mg 10 mg Communi tablet Take tablet Take tablet ty 1 tablet 1 tablet Take 1 Hospi ta every day every day tablet l by oral by oral every day Clin ics route. route. by oral route. Multi For Multi For No Multi For [facility] Her Her Her Communi ty Hospita l Clinics Myrbetriq Myrbetriq No Myrbetriq [facility] 25 mg 25 mg 25 mg Communi tablet,exte tablet,exte tablet,ext ty nded nded ended Hospita release release release l Take 1 Take 1 Take 1 Clinics tablet tablet tablet every day every day every day by oral by oral by oral route at route at route at bedtime. bedtime. bedtime. Prolia 60 Prolia 60 No Prolia 60 [facility] mg/mL mg/mL mg/mL Communi subcutaneou subcutaneou subcutaneo ty s syringe 1 s syringe 1 us syringe Hospita ML SUBQ ML SUBQ 1 ML SUBQ l every 6 every 6 every 6 Clinic s months / months / months / m81.0 m81.0 m81.0 osteoporosi osteoporosi osteoporos s / inj s / inj is / inj code 50284 code 72550 code 01603 sertraline sertraline No sertraline [facility] 25 mg 25 mg 25 mg Communi [...] INJECTIONS INJECTIONS INJECTIONS Zithromax Zithromax No Zithromax [facility] Z-August 250 Z-August 250 Z-August 250 Communi [...] FOR 4 DAYS alprazolam alprazolam No alprazolam [facility] 0.25 mg 0.25 mg 0.25 mg Commun i tablet TAKE tablet TAKE tablet ty 1 TABLET BY 1 TABLET BY TAKE 1 Hospita MOUTH EVERY MOUTH EVERY TABLET BY l NIGHT AT NIGHT AT MOUTH Clinic s BEDTIME BEDTIME EVERY NIGHT AT BEDTIME Z55-Nhcnb Y32-Iteor No 1 Q1D W82-Opzmq [facility] 1,000 mcg 1,000 mcg 1,000 mcg Communi tablet Take tablet Take tablet ty 1 tablet 1 tablet Take 1 Hospi ta every day every day tablet l by oral by oral every day Clin ics route. route. by oral route. cyanocobala cyanocobala No 1mL cyanocobal [facility] min (vit min (vit villafana (vit Co mmuni B-12) 1,000 B-12) 1,000 B-12) ty mcg/mL mcg/mL 1,000 Hospita injection injection mcg/mL l solution solution injection Cl inics Inject 1 mL Inject 1 mL solution every month every month Inject 1 by by mL every subcutaneou subcutaneou month by s route. s route. subcutaneo us route. Lantus Lantus No Lantus [facility] Solostar Solostar Solostar Com shadi U-100 U-100 [...] SKIN EVERY DAY levothyroxi levothyroxi No levothyrox [facility] ne 25 mcg ne 25 mcg ine 25 mcg Communi tablet TAKE tablet TAKE tablet ty 1 TABLET BY 1 TABLET BY TAKE 1 Hospita MOUTH EVERY MOUTH EVERY TABLET BY l DAY DAY MOUTH Clinics EVERY DAY lisinopril lisinopril No lisinopril [facility] 10 mg 10 mg 10 mg Communi tablet Take tablet Take tablet ty 1 tablet 1 tablet Take 1 Hospi ta every day every day tablet l by oral by oral every day Clin ics route. route. by oral route. meloxicam meloxicam No 1 Q1D meloxicam [facility] 7.5 mg 7.5 mg 7.5 mg Communi tablet Take tablet Take tablet ty 1 tablet 1 tablet Take 1 Hospi ta every day every day tablet l by oral by oral every day Clin ics route with route with by oral meals. meals. route with meals. Multi For Multi For No Multi For [facility] Her Her Her Communi ty Hospita l Clinics Myrbetriq Myrbetriq No Myrbetriq [facility] 25 mg 25 mg 25 mg Communi tablet,exte tablet,exte tablet,ext ty nded nded ended Hospita release release release l TAKE 1 TAKE 1 TAKE 1 Clinics TABLET BY TABLET BY TABLET BY MOUTH EVERY MOUTH EVERY MOUTH NIGHT AT NIGHT AT EVERY BEDTIME BEDTIME NIGHT AT BEDTIME Prolia 60 Prolia 60 No Prolia 60 [facility] mg/mL mg/mL mg/mL Communi subcutaneou subcutaneou subcutaneo ty s syringe 1 s syringe 1 us syringe Hospita ML SUBQ ML SUBQ 1 ML SUBQ l every 6 every 6 every 6 Clinic s months / months / months / m81.0 m81.0 m81.0 osteoporosi osteoporosi osteoporos s / inj s / inj is / inj code 70363 code 10966 code 97852 sertraline sertraline No sertraline [facility] 25 mg 25 mg 25 mg Communi [...] INJECTIONS INSULIN INJECTIONS alprazolam alprazolam No alprazolam [facility] 0.25 mg 0.25 mg 0.25 mg Commun i tablet TAKE tablet TAKE tablet ty 1 TABLET BY 1 TABLET BY TAKE 1 Hospita MOUTH EVERY MOUTH EVERY TABLET BY l NIGHT AT NIGHT AT MOUTH Clinic s BEDTIME BEDTIME EVERY NIGHT AT BEDTIME M92-Tkjtz K82-Uqaoj No 1 Q1D X99-Dwdaf [facility] 1,000 mcg 1,000 mcg 1,000 mcg Communi tablet Take tablet Take tablet ty 1 tablet 1 tablet Take 1 Hospi ta every day every day tablet l by oral by oral every day Clin ics route. route. by oral route. Bactrim DS Bactrim DS No 1 Q12H Bactrim DS [facility] 800 mg-160 800 mg-160 800 mg-160 Communi mg tablet mg tablet mg tablet ty Take 1 Take 1 Take 1 Hospita tablet tablet tablet l every 12 every 12 every 12 Cli nics hours by hours by hours by oral route oral route oral route for 7 days. for 7 days. for 7 days. cyanocobala cyanocobala No 1mL cyanocobal [facility] min (vit min (vit villafana (vit Co mmuni B-12) 1,000 B-12) 1,000 B-12) ty mcg/mL mcg/mL 1,000 Hospita injection injection mcg/mL l solution solution injection Cl inics Inject 1 mL Inject 1 mL solution every month every month Inject 1 by by mL every subcutaneou subcutaneou month by s route. s route. subcutaneo us route. Lantus Lantus No Lantus [facility] Solostar Solostar Solostar Com shadi U-100 U-100 [...] SKIN EVERY DAY levothyroxi levothyroxi No levothyrox [facility] ne 25 mcg ne 25 mcg ine 25 mcg Communi tablet TAKE tablet TAKE tablet ty 1 TABLET BY 1 TABLET BY TAKE 1 Hospita MOUTH EVERY MOUTH EVERY TABLET BY l DAY DAY MOUTH Clinics EVERY DAY lisinopril lisinopril No lisinopril [facility] 10 mg 10 mg 10 mg Communi tablet Take tablet Take tablet ty 1 tablet 1 tablet Take 1 Hospi ta every day every day tablet l by oral by oral every day Clin ics route. route. by oral route. Medrol Medrol No Medrol [facility] (August) 4 mg (August) 4 mg (August) 4 mg Communi tablets in tablets in tablets in ty a dose pack a dose pack a dose Hospita as directed as directed pack as l directed Clinics meloxicam meloxicam No meloxicam [facility] 7.5 mg 7.5 mg 7.5 mg Communi tablet Take tablet Take tablet ty 1 tablet 1 tablet Take 1 Hospi ta every day every day tablet l by oral by oral every day Clin ics route with route with by oral meals. meals. route with meals. Multi For Multi For No Multi For [facility] Her Her Her Communi ty Hospita l Clinics Myrbetriq Myrbetriq No Myrbetriq [facility] 25 mg 25 mg 25 mg [facility]i tablet,exte tablet,exte tablet,ext ty nded nded ended Hospita release release release l TAKE 1 TAKE 1 TAKE 1 Clinics TABLET BY TABLET BY TABLET BY MOUTH EVERY MOUTH EVERY MOUTH NIGHT AT NIGHT AT EVERY BEDTIME BEDTIME NIGHT AT BEDTIME Prolia 60 Prolia 60 No Prolia 60 [facility] mg/mL mg/mL mg/mL Communi subcutaneou subcutaneou subcutaneo ty s syringe 1 s syringe 1 us syringe Hospita ML SUBQ ML SUBQ 1 ML SUBQ l every 6 every 6 every 6 Clinic s months / months / months / m81.0 m81.0 m81.0 osteoporosi osteoporosi osteoporos s / inj s / inj is / inj code 55736 code 46550 code 79603 sertraline sertraline No sertraline [facility] 25 mg 25 mg 25 mg [facility]i tablet Take tablet Take tablet ty 1 tablet 1 tablet Take 1 Hospi ta every day every day tablet l by oral by oral every day Clin ics route. route. by oral route. UltiCare UltiCare No UltiCare Swe tristian Pen Needle Pen Needle Pen Needle Communi 32 gauge x 32 gauge x 32 gauge x ty 5/32" USE 32" USE 32" USE Hospita DIRECTED DIRECTED l WITH WITH DIRECTED Clinics INSULIN INSULIN WITH INJECTIONS INJECTIONS INSULIN INJECTIONS alprazolam alprazolam No alprazolam [facility] 0.25 mg 0.25 mg 0.25 mg Commun i tablet TAKE tablet TAKE tablet ty 1 TABLET BY 1 TABLET BY TAKE 1 Hospita MOUTH EVERY MOUTH EVERY TABLET BY l NIGHT AT NIGHT AT MOUTH Clinic s BEDTIME BEDTIME EVERY NIGHT AT BEDTIME B35-Nkrhb F13-Eszvq No 1 Q1D P58-Csmyu [facility] 1,000 mcg 1,000 mcg 1,000 mcg Communi tablet Take tablet Take tablet ty 1 tablet 1 tablet Take 1 Hospi ta every day every day tablet l by oral by oral every day Clin ics route. route. by oral route. cyanocobala cyanocobala No 1mL cyanocobal [facility] min (vit min (vit villafana (vit Co mmuni B-12) 1,000 B-12) 1,000 B-12) ty mcg/mL mcg/mL 1,000 Hospita injection injection mcg/mL l solution solution injection Cl inics Inject 1 mL Inject 1 mL solution every month every month Inject 1 by by mL every subcutaneou subcutaneou month by s route. s route. subcutaneo us route. Lantus Lantus No Lantus [facility] Solostar Solostar Solostar Com shadi U-100 U-100 [...] SKIN EVERY DAY levothyroxi levothyroxi No levothyrox [facility] ne 25 mcg ne 25 mcg ine 25 mcg Communi tablet TAKE tablet TAKE tablet ty 1 TABLET BY 1 TABLET BY TAKE 1 Hospita MOUTH EVERY MOUTH EVERY TABLET BY l DAY DAY MOUTH Clinics EVERY DAY lisinopril lisinopril No lisinopril [facility] 10 mg 10 mg 10 mg [facility]i tablet Take tablet Take tablet ty 1 tablet 1 tablet Take 1 Hospi ta every day every day tablet l by oral by oral every day Clin ics route. route. by oral route. meloxicam meloxicam No meloxicam [facility] 7.5 mg 7.5 mg 7.5 mg Communi tablet Take tablet Take tablet ty 1 tablet 1 tablet Take 1 Hospi ta every day every day tablet l by oral by oral every day Clin ics route with route with by oral meals. meals. route with meals. methylpredn methylpredn No methylpred [facility] isolone 4 isolone 4 nisolone 4 Communi mg tablets mg tablets mg tablets ty in a dose in a dose in a dose Hospita pack as pack as pack as l directed directed directed Cli nics Multi For Multi For No Multi For [facility] Her Her Her Communi ty Hospita l Clinics Myrbetriq Myrbetriq No Myrbetriq [facility] 25 mg 25 mg 25 mg Communi tablet,exte tablet,exte tablet,ext ty nded nded ended Hospita release release release l TAKE 1 TAKE 1 TAKE 1 Clinics TABLET BY TABLET BY TABLET BY MOUTH EVERY MOUTH EVERY MOUTH NIGHT AT NIGHT AT EVERY BEDTIME BEDTIME NIGHT AT BEDTIME Prolia 60 Prolia 60 No Prolia 60 [facility] mg/mL mg/mL mg/mL Communi subcutaneou subcutaneou subcutaneo ty s syringe 1 s syringe 1 us syringe Hospita ML SUBQ ML SUBQ 1 ML SUBQ l every 6 every 6 every 6 Clinic s months / months / months / m81.0 m81.0 m81.0 osteoporosi osteoporosi osteoporos s / inj s / inj is / inj code 61035 code 94347 code 55979 sertraline sertraline No sertraline [facility] 25 mg 25 mg 25 mg Communi tablet Take tablet Take tablet ty 1 tablet 1 tablet Take 1 Hospi ta every day every day tablet l by oral by oral every day Clin ics route. route. by oral route. sulfamethox sulfamethox No sulfametho [facility] azole 800 azole 800 xazole 800 Communi [...] INJECTIONS INSULIN INJECTIONS alprazolam alprazolam No alprazolam [facility] 0.25 mg 0.25 mg 0.25 mg Commun i tablet TAKE tablet TAKE tablet ty 1 TABLET BY 1 TABLET BY TAKE 1 Hospita MOUTH EVERY MOUTH EVERY TABLET BY l NIGHT AT NIGHT AT MOUTH Clinic s BEDTIME BEDTIME EVERY NIGHT AT BEDTIME [id number] No 1 Q1D [id number] [facility] 1,000 mcg 1,000 mcg 1,000 mcg [facility] tablet Take tablet Take tablet ty 1 tablet 1 tablet Take 1 Hospi ta every day every day tablet l by oral by oral every day Clin ics route. route. by oral route. cyanocobala cyanocobala No 1mL cyanocobal [facility] min (vit min (vit villafana (vit Co mmuni B-12) 1,000 B-12) 1,000 B-12) ty mcg/mL mcg/mL 1,000 Hospita injection injection mcg/mL l solution solution injection Cl inics Inject 1 mL Inject 1 mL solution every month every month Inject 1 by by mL every subcutaneou subcutaneou month by s route. s route. subcutaneo us route. duloxetine duloxetine No 1capsul Q1D duloxetine [facility] 30 mg 30 mg e(s) 30 mg [facility] capsule,del capsule,del capsule,de ty ayed ayed layed Hospita release release release l Take 1 Take 1 Take 1 Clinics capsule capsule capsule every day every day every day by oral by oral by oral route. route. route. gatifloxaci gatifloxaci No gatifloxac [facility] n 0.5 % eye n 0.5 % eye in 0.5 % [facility] drops drops eye drops ty INSTILL 1 INSTILL 1 INSTILL 1 Hospita DROP IN DROP IN DROP IN l LEFT EYE LEFT EYE LEFT EYE Cli nics FOUR TIMES FOUR TIMES FOUR TIMES DAILY FOR 7 DAILY FOR 7 DAILY FOR DAYS DAYS 7 DAYS Lantus Lantus No Lantus [facility] Solostar Solostar Solostar Com shadi U-100 U-100 [...] SKIN EVERY DAY levothyroxi levothyroxi No levothyrox [facility] ne 25 mcg ne 25 mcg ine 25 mcg [facility] tablet TAKE tablet TAKE tablet ty 1 TABLET BY 1 TABLET BY TAKE 1 Hospita MOUTH EVERY MOUTH EVERY TABLET BY l DAY DAY MOUTH Clinics EVERY DAY lisinopril lisinopril No lisinopril [facility] 10 mg 10 mg 10 mg [facility] tablet TAKE tablet TAKE tablet ty 1 TABLET BY 1 TABLET BY TAKE 1 Hospita MOUTH ONCE MOUTH ONCE TABLET BY l EVERY DAY EVERY DAY MOUTH ONCE Clinics EVERY DAY meloxicam meloxicam No meloxicam [facility] 7.5 mg 7.5 mg 7.5 mg [facility] tablet TAKE tablet TAKE tablet ty 1 TABLET BY 1 TABLET BY TAKE 1 Hospita MOUTH EVERY MOUTH EVERY TABLET BY l DAY WITH A DAY WITH A MOUTH Cl inics MEAL MEAL EVERY DAY WITH A MEAL Multi For Multi For No Multi For [facility] l Clinics Myrbetriq Myrbetriq No Myrbetriq [facility] 25 mg 25 mg 25 mg [facility] tablet,exte tablet,exte tablet,ext ty nded nded ended Hospita release release release l TAKE 1 TAKE 1 TAKE 1 Clinics TABLET BY TABLET BY TABLET BY MOUTH EVERY MOUTH EVERY MOUTH NIGHT AT NIGHT AT EVERY BEDTIME BEDTIME NIGHT AT BEDTIME Prolia 60 Prolia 60 No Prolia 60 [facility] mg/mL mg/mL mg/mL Communi subcutaneou subcutaneou subcutaneo ty s syringe 1 s syringe 1 us syringe Hospita ML SUBQ ML SUBQ 1 ML SUBQ l every 6 every 6 every 6 Clinic s months / months / months / m81.0 m81.0 m81.0 osteoporosi osteoporosi osteoporos s / inj s / inj is / inj code 16387 code 08579 code 29287 tramadol 50 tramadol 50 No tramadol [facility] mg tablet mg tablet 50 mg Comm [...] INJECTIONS INSULIN INJECTIONS alprazolam alprazolam No alprazolam [facility] 0.25 mg 0.25 mg 0.25 mg Commun i tablet TAKE tablet TAKE tablet ty 1 TABLET BY 1 TABLET BY TAKE 1 Hospita MOUTH EVERY MOUTH EVERY TABLET BY l NIGHT AT NIGHT AT MOUTH Clinic s BEDTIME BEDTIME EVERY NIGHT AT BEDTIME diphenoxyla diphenoxyla No diphenoxyl [facility] te-atropine te-atropine ate-atropi Communi 2.5 2.5 ne [...] daily. as needed. Lantus Lantus No Lantus [facility] Solostar Solostar Solostar Com shadi U-100 U-100 [...] SKIN EVERY DAY lisinopril lisinopril No lisinopril [facility] 10 mg 10 mg 10 mg [facility] tablet TAKE tablet TAKE tablet ty 1 TABLET BY 1 TABLET BY TAKE 1 Hospita MOUTH ONCE MOUTH ONCE TABLET BY l EVERY DAY EVERY DAY MOUTH ONCE Clinics EVERY DAY meloxicam meloxicam No meloxicam [facility] 7.5 mg 7.5 mg 7.5 mg [facility] tablet TAKE tablet TAKE tablet ty 1 TABLET BY 1 TABLET BY TAKE 1 [facility]ospita MOUTH EVERY MOUTH EVERY TABLET BY l DAY WITH A DAY WITH A MOUTH Cl inics MEAL MEAL EVERY DAY WITH A MEAL metronidazo metronidazo No metronidaz [facility] le 500 mg le 500 mg ole 500 mg [facility] tablet TAKE tablet TAKE tablet ty 1 TABLET BY 1 TABLET BY TAKE 1 Hospita MOUTH EVERY MOUTH EVERY TABLET BY l 8 HOURS 8 HOURS MOUTH Clinics EVERY 8 HOURS [facility] Commu ni ty Hospita l Clinics Prolia 60 Prolia 60 No Prolia 60 [facility] mg/mL mg/mL mg/mL Communi subcutaneou subcutaneou subcutaneo ty s syringe 1 s syringe 1 us syringe Hospita ML SUBQ ML SUBQ 1 ML SUBQ l every 6 every 6 every 6 Clinic s months / months / months / m81.0 m81.0 m81.0 osteoporosi osteoporosi osteoporos s / inj s / inj is / inj code 29090 code 69968 code 52762 tramadol 50 tramadol 50 No tramadol [facility] mg tablet mg tablet 50 mg Comm [...] INJECTIONS INSULIN INJECTIONS alprazolam alprazolam No alprazolam [facility] 0.25 mg 0.25 mg 0.25 mg Commun i tablet TAKE tablet TAKE tablet ty 1 TABLET BY 1 TABLET BY TAKE 1 Hospita MOUTH EVERY MOUTH EVERY TABLET BY l NIGHT AT NIGHT AT MOUTH Clinic s BEDTIME BEDTIME EVERY NIGHT AT BEDTIME diphenoxyla diphenoxyla No diphenoxyl [facility] te-atropine te-atropine ate-atropi Communi 2.5 2.5 ne [...] daily. as needed. duloxetine duloxetine No duloxetine [facility] 30 mg 30 mg 30 mg [facility] capsule,del capsule,del capsule,de ty ayed ayed layed Hospita release release release l TAKE 1 TAKE 1 TAKE 1 Clinics CAPSULE BY CAPSULE BY CAPSULE BY MOUTH EVERY MOUTH EVERY MOUTH DAY DAY EVERY DAY ezetimibe ezetimibe No ezetimibe [facility] 10 mg 10 mg 10 mg [facility] tablet TAKE tablet TAKE tablet ty 1 TABLET BY 1 TABLET BY TAKE 1 Hospita MOUTH EVERY MOUTH EVERY TABLET BY l DAY DAY MOUTH Clinics EVERY DAY Lantus Lantus No Lantus [facility] Solostar Solostar Solostar Com shadi U-100 U-100 [...] SKIN EVERY DAY lisinopril lisinopril No lisinopril [facility] 10 mg 10 mg 10 mg [facility] tablet TAKE tablet TAKE tablet ty 1 TABLET BY 1 TABLET BY TAKE 1 Hospita MOUTH ONCE MOUTH ONCE TABLET BY l EVERY DAY EVERY DAY MOUTH ONCE Clinics EVERY DAY meloxicam meloxicam No meloxicam [facility] 7.5 mg 7.5 mg 7.5 mg [facility] tablet TAKE tablet TAKE tablet ty 1 TABLET BY 1 TABLET BY TAKE 1 Hospita MOUTH EVERY MOUTH EVERY TABLET BY l DAY WITH A DAY WITH A MOUTH Cl inics MEAL MEAL EVERY DAY WITH A MEAL [facility] Commu ni ty Hospita l Clinics potassium potassium No potassium [facility] chloride ER chloride ER chloride [facility]i 10 mEq 10 mEq ER 10 mEq ty tablet,exte tablet,exte tablet,ext Hospita nded nded ended l release release release Clinic s TAKE 1 TAKE 1 TAKE 1 TABLET BY TABLET BY TABLET BY MOUTH EVERY MOUTH EVERY MOUTH DAY DAY EVERY DAY Prolia 60 Prolia 60 No Prolia 60 [facility] mg/mL mg/mL mg/mL Communi subcutaneou subcutaneou subcutaneo ty s syringe 1 s syringe 1 us syringe Hospita ML SUBQ ML SUBQ 1 ML SUBQ l every 6 every 6 every 6 Clinic s months / months / months / m81.0 m81.0 m81.0 osteoporosi osteoporosi osteoporos s / inj s / inj is / inj code 08820 code 23982 code 10145 Questran 4 Questran 4 No 1packet TID Questran 4 [facility] gram powder gram powder (s) gram C [...] by oral route. sulfamethox sulfamethox No sulfametho [facility] azole 800 azole 800 xazole 800 [facility]i mg-trimetho mg-trimetho mg-trimeth ty prim 160 mg prim 160 mg oprim 160 Hospita tablet TAKE tablet TAKE mg tablet l 1 TABLET BY 1 TABLET BY TAKE 1 Clinics MOUTH TWICE MOUTH TWICE TABLET BY DAILY FOR DAILY FOR MOUTH 10 DAYS 10 DAYS TWICE DAILY FOR 10 DAYS tramadol 50 tramadol 50 No tramadol [facility] mg tablet mg tablet 50 mg Comm [...] INJECTIONS INSULIN INJECTIONS alprazolam alprazolam No alprazolam [facility] 0.25 mg 0.25 mg 0.25 mg Commun i tablet TAKE tablet TAKE tablet ty 1 TABLET BY 1 TABLET BY TAKE 1 Hospita MOUTH EVERY MOUTH EVERY TABLET BY l NIGHT AT NIGHT AT MOUTH Clinic s BEDTIME BEDTIME EVERY NIGHT AT BEDTIME cholestyram cholestyram No cholestyra [facility] ine (with ine (with mine (with Communi [...] THREE TIMES DAILY diphenoxyla diphenoxyla No diphenoxyl [facility] te-atropine te-atropine ate-atropi Communi 2.5 2.5 ne [...] TABLETS PER DAY duloxetine duloxetine No duloxetine [facility] 30 mg 30 mg 30 mg [facility] capsule,del capsule,del capsule,de ty ayed ayed layed Hospita release release release l TAKE 1 TAKE 1 TAKE 1 Clinics CAPSULE BY CAPSULE BY CAPSULE BY MOUTH EVERY MOUTH EVERY MOUTH DAY DAY EVERY DAY ezetimibe ezetimibe No ezetimibe [facility] 10 mg 10 mg 10 mg [facility]i tablet TAKE tablet TAKE tablet ty 1 TABLET BY 1 TABLET BY TAKE 1 [facility]ospita MOUTH EVERY MOUTH EVERY TABLET BY l DAY DAY MOUTH Clinics EVERY DAY Lantus Lantus No Lantus [facility] Solostar Solostar Solostar Com shadi U-100 U-100 [...] SKIN EVERY DAY lisinopril lisinopril No lisinopril [facility] 10 mg 10 mg 10 mg Commun[facility] tablet TAKE tablet TAKE tablet ty 1 TABLET BY 1 TABLET BY TAKE 1 Hospita MOUTH ONCE MOUTH ONCE TABLET BY l EVERY DAY EVERY DAY MOUTH ONCE Clinics EVERY DAY meloxicam meloxicam No meloxicam [facility] 7.5 mg 7.5 mg 7.5 mg [facility] tablet TAKE tablet TAKE tablet ty 1 TABLET BY 1 TABLET BY TAKE 1 Hospita MOUTH EVERY MOUTH EVERY TABLET BY l DAY WITH A DAY WITH A MOUTH Cl inics MEAL MEAL EVERY DAY WITH A MEAL [facility] Commu ni ty Hospita l Clinics potassium potassium No potassium [facility] chloride ER chloride ER chloride Communi 10 mEq 10 mEq ER 10 mEq ty tablet,exte tablet,exte tablet,ext Hospita nded nded ended l release release release Clinic s TAKE 1 TAKE 1 TAKE 1 TABLET BY TABLET BY TABLET BY MOUTH EVERY MOUTH EVERY MOUTH DAY DAY EVERY DAY Prolia 60 Prolia 60 No Prolia 60 [facility] mg/mL mg/mL mg/mL Communi subcutaneou subcutaneou subcutaneo ty s syringe 1 s syringe 1 us syringe Hospita ML SUBQ ML SUBQ 1 ML SUBQ l every 6 every 6 every 6 Clinic s months / months / months / m81.0 m81.0 m81.0 osteoporosi osteoporosi osteoporos s / inj s / inj is / inj code 72182 code 03288 code 82333 sulfamethox sulfamethox No sulfametho [facility] azole 800 azole 800 xazole 800 [facility]i mg-trimetho mg-trimetho mg-trimeth ty prim 160 mg prim 160 mg oprim 160 Hospita tablet TAKE tablet TAKE mg tablet l 1 TABLET BY 1 TABLET BY TAKE 1 Clinics MOUTH TWICE MOUTH TWICE TABLET BY DAILY FOR DAILY FOR MOUTH 10 DAYS 10 DAYS TWICE DAILY FOR 10 DAYS tramadol 50 tramadol 50 No tramadol [facility] mg tablet mg tablet 50 mg Comm [...] INJECTIONS INSULIN INJECTIONS alprazolam alprazolam No alprazolam [facility] 0.25 mg 0.25 mg 0.25 mg Commun i tablet TAKE tablet TAKE tablet ty 1 TABLET BY 1 TABLET BY TAKE 1 Hospita MOUTH EVERY MOUTH EVERY TABLET BY l NIGHT AT NIGHT AT MOUTH Clinic s BEDTIME BEDTIME EVERY NIGHT AT BEDTIME cholestyram cholestyram No cholestyra [facility] ine (with ine (with mine (with Communi [...] THREE TIMES DAILY diphenoxyla diphenoxyla No diphenoxyl [facility] te-atropine te-atropine ate-atropi Communi 2.5 2.5 ne [...] TABLETS PER DAY duloxetine duloxetine No duloxetine [facility] 30 mg 30 mg 30 mg [facility] capsule,del capsule,del capsule,de ty ayed ayed layed Hospita release release release l TAKE 1 TAKE 1 TAKE 1 Clinics CAPSULE BY CAPSULE BY CAPSULE BY MOUTH EVERY MOUTH EVERY MOUTH DAY DAY EVERY DAY ezetimibe ezetimibe No ezetimibe [facility] 10 mg 10 mg 10 mg [facility]i tablet TAKE tablet TAKE tablet ty 1 TABLET BY 1 TABLET BY TAKE 1 Hospita MOUTH EVERY MOUTH EVERY TABLET BY l DAY DAY MOUTH Clinics EVERY DAY Lantus Lantus No Lantus [facility] Solostar Solostar Solostar Com shadi U-100 U-100 [...] SKIN EVERY DAY lisinopril lisinopril No lisinopril [facility] 10 mg 10 mg 10 mg [facility] tablet TAKE tablet TAKE tablet ty 1 TABLET BY 1 TABLET BY TAKE 1 Hospita MOUTH ONCE MOUTH ONCE TABLET BY l EVERY DAY EVERY DAY MOUTH ONCE Clinics EVERY DAY meloxicam meloxicam No meloxicam [facility] 7.5 mg 7.5 mg 7.5 mg [facility] tablet TAKE tablet TAKE tablet ty 1 TABLET BY 1 TABLET BY TAKE 1 Hospita MOUTH EVERY MOUTH EVERY TABLET BY l DAY WITH A DAY WITH A MOUTH Cl inics MEAL MEAL EVERY DAY WITH A MEAL [facility] Commu ni ty Hospita l Clinics potassium potassium No potassium [facility] chloride ER chloride ER chloride Communi 10 mEq 10 mEq ER 10 mEq ty tablet,exte tablet,exte tablet,ext Hospita nded nded ended l release release release Clinic s TAKE 1 TAKE 1 TAKE 1 TABLET BY TABLET BY TABLET BY MOUTH EVERY MOUTH EVERY MOUTH DAY DAY EVERY DAY Prolia 60 Prolia 60 No Prolia 60 [facility] mg/mL mg/mL mg/mL Communi subcutaneou subcutaneou subcutaneo ty s syringe 1 s syringe 1 us syringe Hospita ML SUBQ ML SUBQ 1 ML SUBQ l every 6 every 6 every 6 Clinic s months / months / months / m81.0 m81.0 m81.0 osteoporosi osteoporosi osteoporos s / inj s / inj is / inj code 47035 code 98678 code 30740 tramadol 50 tramadol 50 No tramadol [facility] mg tablet mg tablet 50 mg Comm [...] INJECTIONS INSULIN INJECTIONS alprazolam alprazolam No alprazolam [facility] 0.25 mg 0.25 mg 0.25 mg Commun i tablet TAKE tablet TAKE tablet ty 1 TABLET BY 1 TABLET BY TAKE 1 Hospita MOUTH EVERY MOUTH EVERY TABLET BY l NIGHT AT NIGHT AT MOUTH Clinic s BEDTIME BEDTIME EVERY NIGHT AT BEDTIME buspirone 5 buspirone 5 No buspirone [facility] mg tablet mg tablet 5 mg Commu ni TAKE 1 TAKE 1 tablet ty TABLET BY TABLET BY TAKE 1 [facility] MOUTH TWICE MOUTH TWICE TABLET BY l DAILY DAILY MOUTH Clinic s NEEDED NEEDED TWICE DAILY NEEDED cholestyram cholestyram No cholestyra [facility] ine (with ine (with mine (with Communi [...] TIMES DAILY cyanocobala cyanocobala No 1mL cyanocobal [facility] min (vit min (vit villafana (vit Co mmuni B-12) 1,000 B-12) 1,000 B-12) ty mcg/mL mcg/mL 1,000 Hospita injection injection mcg/mL l solution solution injection Cl inics Inject 1 mL Inject 1 mL solution every month every month Inject 1 by by mL every subcutaneou subcutaneou month by s route. s route. subcutaneo us route. diphenoxyla diphenoxyla No diphenoxyl [facility] te-atropine te-atropine ate-atropi Communi 2.5 2.5 ne [...] TABLETS PER DAY duloxetine duloxetine No duloxetine [facility] 30 mg 30 mg 30 mg [facility] capsule,del capsule,del capsule,de ty ayed ayed layed Hospita release release release l TAKE 1 TAKE 1 TAKE 1 Clinics CAPSULE BY CAPSULE BY CAPSULE BY MOUTH EVERY MOUTH EVERY MOUTH DAY DAY EVERY DAY ezetimibe ezetimibe No ezetimibe [facility] 10 mg 10 mg 10 mg [facility]i tablet TAKE tablet TAKE tablet ty 1 TABLET BY 1 TABLET BY TAKE 1 Hospita MOUTH EVERY MOUTH EVERY TABLET BY l DAY DAY MOUTH Clinics EVERY DAY Lantus Lantus No Lantus [facility] Solostar Solostar Solostar Com shadi U-100 U-100 [...] SKIN EVERY DAY lisinopril lisinopril No lisinopril [facility] 10 mg 10 mg 10 mg [facility] tablet TAKE tablet TAKE tablet ty 1 TABLET BY 1 TABLET BY TAKE 1 Hospita MOUTH ONCE MOUTH ONCE TABLET BY l EVERY DAY EVERY DAY MOUTH ONCE Clinics EVERY DAY meloxicam meloxicam No meloxicam [facility] 7.5 mg 7.5 mg 7.5 mg [facility] tablet TAKE tablet TAKE tablet ty 1 TABLET BY 1 TABLET BY TAKE 1 Hospita MOUTH EVERY MOUTH EVERY TABLET BY l DAY WITH A DAY WITH A MOUTH Cl inics MEAL MEAL EVERY DAY WITH A MEAL nitrofurant nitrofurant No nitrofuran [facility] oin oin toin Communi monohydrate monohydrate monohydrat ty /macrocryst /macrocryst e/macrocry Hospita als 100 mg als 100 mg stals 100 l capsule capsule mg capsule Cli nics TAKE 1 TAKE 1 TAKE 1 CAPSULE BY CAPSULE BY CAPSULE BY MOUTH TWICE MOUTH TWICE MOUTH DAILY FOR DAILY FOR TWICE 10 DAYS 10 DAYS DAILY FOR 10 DAYS [facility] No [facility] Commu ni ty Hospita l Clinics potassium potassium No potassium [facility] chloride ER chloride ER chloride Communi 10 mEq 10 mEq ER 10 mEq ty tablet,exte tablet,exte tablet,ext Hospita nded nded ended l release release release Clinic s TAKE 1 TAKE 1 TAKE 1 TABLET BY TABLET BY TABLET BY MOUTH EVERY MOUTH EVERY MOUTH DAY DAY EVERY DAY Prolia 60 Prolia 60 No Prolia 60 [facility] mg/mL mg/mL mg/mL Communi subcutaneou subcutaneou subcutaneo ty s syringe 1 s syringe 1 us syringe Hospita ML SUBQ ML SUBQ 1 ML SUBQ l every 6 every 6 every 6 Clinic s months / months / months / m81.0 m81.0 m81.0 osteoporosi osteoporosi osteoporos s / inj s / inj is / inj code 68382 code 92950 code 77903 tramadol 50 tramadol 50 No tramadol [facility] mg tablet mg tablet 50 mg Comm [...] INJECTIONS INSULIN INJECTIONS alprazolam alprazolam No alprazolam [facility] 0.25 mg 0.25 mg 0.25 mg Commun i tablet TAKE tablet TAKE tablet ty 1 TABLET BY 1 TABLET BY TAKE 1 Hospita MOUTH EVERY MOUTH EVERY TABLET BY l NIGHT AT NIGHT AT MOUTH Clinic s BEDTIME BEDTIME EVERY NIGHT AT BEDTIME buspirone 5 buspirone 5 No buspirone [facility] mg tablet mg tablet 5 mg Commu ni TAKE 1 TAKE 1 tablet ty TABLET BY TABLET BY TAKE 1 [facility] MOUTH TWICE MOUTH TWICE TABLET BY l DAILY DAILY MOUTH Clinic s NEEDED NEEDED TWICE DAILY NEEDED cholestyram cholestyram No cholestyra [facility] ine (with ine (with mine (with Communi [...] TIMES DAILY cyanocobala cyanocobala No 1mL cyanocobal [facility] min (vit min (vit villafana (vit Co mmuni B-12) 1,000 B-12) 1,000 B-12) ty mcg/mL mcg/mL 1,000 Hospita injection injection mcg/mL l solution solution injection Cl inics Inject 1 mL Inject 1 mL solution every month every month Inject 1 by by mL every subcutaneou subcutaneou month by s route. s route. subcutaneo us route. diphenoxyla diphenoxyla No diphenoxyl [facility] te-atropine te-atropine ate-atropi Communi 2.5 2.5 ne [...] TABLETS PER DAY duloxetine duloxetine No duloxetine [facility] 30 mg 30 mg 30 mg [facility] capsule,del capsule,del capsule,de ty ayed ayed layed Hospita release release release l TAKE 1 TAKE 1 TAKE 1 Clinics CAPSULE BY CAPSULE BY CAPSULE BY MOUTH EVERY MOUTH EVERY MOUTH DAY DAY EVERY DAY ezetimibe ezetimibe No ezetimibe [facility] 10 mg 10 mg 10 mg Communi tablet TAKE tablet TAKE tablet ty 1 TABLET BY 1 TABLET BY TAKE 1 Hospita MOUTH EVERY MOUTH EVERY TABLET BY l DAY DAY MOUTH Clinics EVERY DAY Lantus Lantus No Lantus [facility] Solostar Solostar Solostar Com shadi U-100 U-100 [...] DAY lisinopril lisinopril No 1 Q1D lisinopril [facility] 5 mg tablet 5 mg tablet 5 mg C ommuni Take 1 Take 1 tablet ty tablet tablet Take 1 Hospita every day every day tablet l by oral by oral every day Clin ics route. route. by oral route. meloxicam meloxicam No meloxicam [facility] 7.5 mg 7.5 mg 7.5 mg Communi tablet TAKE tablet TAKE tablet ty 1 TABLET BY 1 TABLET BY TAKE 1 Hospita MOUTH EVERY MOUTH EVERY TABLET BY l DAY WITH A DAY WITH A MOUTH Cl inics MEAL MEAL EVERY DAY WITH A MEAL nitrofurant nitrofurant No nitrofuran [facility] oin oin toin Communi monohydrate monohydrate monohydrat ty /macrocryst /macrocryst e/macrocry Hospita als 100 mg als 100 mg stals 100 l capsule capsule mg capsule Cli nics TAKE 1 TAKE 1 TAKE 1 CAPSULE BY CAPSULE BY CAPSULE BY MOUTH TWICE MOUTH TWICE MOUTH DAILY FOR DAILY FOR TWICE 10 DAYS 10 DAYS DAILY FOR 10 DAYS [facility] No [facility] Commu ni ty Hospita l Clinics potassium potassium No potassium [facility] chloride ER chloride ER chloride Communi 10 mEq 10 mEq ER 10 mEq ty tablet,exte tablet,exte tablet,ext Hospita nded nded ended l release release release Clinic s TAKE 1 TAKE 1 TAKE 1 TABLET BY TABLET BY TABLET BY MOUTH EVERY MOUTH EVERY MOUTH DAY DAY EVERY DAY Prolia 60 Prolia 60 No Prolia 60 [facility] mg/mL mg/mL mg/mL Communi subcutaneou subcutaneou subcutaneo ty s syringe 1 s syringe 1 us syringe Hospita ML SUBQ ML SUBQ 1 ML SUBQ l every 6 every 6 every 6 Clinic s months / months / months / m81.0 m81.0 m81.0 osteoporosi osteoporosi osteoporos s / inj s / inj is / inj code 65012 code 42722 code 56811 tramadol 50 tramadol 50 No tramadol [facility] mg tablet mg tablet 50 mg Comm [...] INJECTIONS INSULIN INJECTIONS alprazolam alprazolam No alprazolam [facility] 0.25 mg 0.25 mg 0.25 mg Commun i tablet TAKE tablet TAKE tablet ty 1 TABLET BY 1 TABLET BY TAKE 1 Hospita MOUTH EVERY MOUTH EVERY TABLET BY l NIGHT AT NIGHT AT MOUTH Clinic s BEDTIME BEDTIME EVERY NIGHT AT BEDTIME buspirone 5 buspirone 5 No buspirone [facility] mg tablet mg tablet 5 mg Commu ni TAKE 1 TAKE 1 tablet ty TABLET BY TABLET BY TAKE 1 [facility] MOUTH TWICE MOUTH TWICE TABLET BY l DAILY DAILY MOUTH Clinic s NEEDED NEEDED TWICE DAILY NEEDED cholestyram cholestyram No cholestyra [facility] ine (with ine (with mine (with Communi [...] TIMES DAILY cyanocobala cyanocobala No 1mL cyanocobal [facility] min (vit min (vit villafana (vit Co mmuni B-12) 1,000 B-12) 1,000 B-12) ty mcg/mL mcg/mL 1,000 Hospita injection injection mcg/mL l solution solution injection Cl inics Inject 1 mL Inject 1 mL solution every month every month Inject 1 by by mL every subcutaneou subcutaneou month by s route. s route. subcutaneo us route. diphenoxyla diphenoxyla No diphenoxyl [facility] te-atropine te-atropine ate-atropi Communi 2.5 2.5 ne [...] TABLETS PER DAY duloxetine duloxetine No duloxetine [facility] 30 mg 30 mg 30 mg [facility]i capsule,del capsule,del capsule,de ty ayed ayed layed Hospita release release release l TAKE 1 TAKE 1 TAKE 1 Clinics CAPSULE BY CAPSULE BY CAPSULE BY MOUTH EVERY MOUTH EVERY MOUTH DAY DAY EVERY DAY ezetimibe ezetimibe No ezetimibe [facility] 10 mg 10 mg 10 mg Communi tablet TAKE tablet TAKE tablet ty 1 TABLET BY 1 TABLET BY TAKE 1 Hospita MOUTH EVERY MOUTH EVERY TABLET BY l DAY DAY MOUTH Clinics EVERY DAY Lantus Lantus No Lantus [facility] Solostar Solostar Solostar Com shadi U-100 U-100 [...] SKIN EVERY DAY lisinopril lisinopril No lisinopril [facility] 5 mg tablet 5 mg tablet 5 mg C ommuni TAKE 1 TAKE 1 tablet ty TABLET BY TABLET BY TAKE 1 [facility] MOUTH EVERY MOUTH EVERY TABLET BY l DAY DAY MOUTH Clinics EVERY DAY meloxicam meloxicam No meloxicam [facility] 7.5 mg 7.5 mg 7.5 mg Communi tablet TAKE tablet TAKE tablet ty 1 TABLET BY 1 TABLET BY TAKE 1 Hospita MOUTH EVERY MOUTH EVERY TABLET BY l DAY WITH A DAY WITH A MOUTH Cl inics MEAL MEAL EVERY DAY WITH A MEAL methylpredn methylpredn No methylpred [facility] isolone 4 isolone 4 nisolone 4 Communi mg tablets mg tablets mg tablets ty in a dose in a dose in a dose Hospita pack FOLLOW pack FOLLOW pack l PACKAGE PACKAGE FOLLOW Clinics DIRECTIONS DIRECTIONS PACKAGE DIRECTIONS nitrofurant nitrofurant No nitrofuran [facility] oin oin toin Communi monohydrate monohydrate monohydrat ty /macrocryst /macrocryst e/macrocry Hospita als 100 mg als 100 mg stals 100 l capsule capsule mg capsule Cli nics TAKE 1 TAKE 1 TAKE 1 CAPSULE BY CAPSULE BY CAPSULE BY MOUTH TWICE MOUTH TWICE MOUTH DAILY FOR DAILY FOR TWICE 10 DAYS 10 DAYS DAILY FOR 10 DAYS [facility] No [facility] Commu ni ty Hospita l Clinics potassium potassium No potassium [facility] chloride ER chloride ER chloride Communi 10 mEq 10 mEq ER 10 mEq ty tablet,exte tablet,exte tablet,ext Hospita nded nded ended l release release release Clinic s TAKE 1 TAKE 1 TAKE 1 TABLET BY TABLET BY TABLET BY MOUTH EVERY MOUTH EVERY MOUTH DAY DAY EVERY DAY Prolia 60 Prolia 60 No Prolia 60 [facility] mg/mL mg/mL mg/mL Communi subcutaneou subcutaneou subcutaneo ty s syringe 1 s syringe 1 us syringe Hospita ML SUBQ ML SUBQ 1 ML SUBQ l every 6 every 6 every 6 Clinic s months / months / months / m81.0 m81.0 m81.0 osteoporosi osteoporosi osteoporos s / inj s / inj is / inj code 45261 code 49027 code 97218 tramadol 50 tramadol 50 No tramadol [facility] mg tablet mg tablet 50 mg Comm [...] INJECTIONS INSULIN INJECTIONS alprazolam alprazolam No alprazolam [facility] 0.25 mg 0.25 mg 0.25 mg Commun i tablet TAKE tablet TAKE tablet ty 1 TABLET BY 1 TABLET BY TAKE 1 Hospita MOUTH EVERY MOUTH EVERY TABLET BY l NIGHT AT NIGHT AT MOUTH Clinic s BEDTIME BEDTIME EVERY NIGHT AT BEDTIME buspirone 5 buspirone 5 No buspirone [facility] mg tablet mg tablet 5 mg Commu ni TAKE 1 TAKE 1 tablet ty TABLET BY TABLET BY TAKE 1 [facility] MOUTH TWICE MOUTH TWICE TABLET BY l DAILY DAILY MOUTH Clinic s NEEDED NEEDED TWICE DAILY NEEDED cholestyram cholestyram No cholestyra [facility] ine (with ine (with mine (with Communi [...] TIMES DAILY cyanocobala cyanocobala No 1mL cyanocobal [facility] min (vit min (vit villafana (vit Co mmuni B-12) 1,000 B-12) 1,000 B-12) ty mcg/mL mcg/mL 1,000 Hospita injection injection mcg/mL l solution solution injection Cl inics Inject 1 mL Inject 1 mL solution every month every month Inject 1 by by mL every subcutaneou subcutaneou month by s route. s route. subcutaneo us route. diphenoxyla diphenoxyla No diphenoxyl [facility] te-atropine te-atropine ate-atropi Communi 2.5 2.5 ne [...] TABLETS PER DAY duloxetine duloxetine No duloxetine [facility] 30 mg 30 mg 30 mg [facility] capsule,del capsule,del capsule,de ty ayed ayed layed [facility]ospita release release release l TAKE 1 TAKE 1 TAKE 1 Clinics CAPSULE BY CAPSULE BY CAPSULE BY MOUTH EVERY MOUTH EVERY MOUTH DAY DAY EVERY DAY ezetimibe ezetimibe No ezetimibe [facility] 10 mg 10 mg 10 mg [facility] tablet TAKE tablet TAKE tablet ty 1 TABLET BY 1 TABLET BY TAKE 1 [facility]ospita MOUTH EVERY MOUTH EVERY TABLET BY l DAY DAY MOUTH Clinics EVERY DAY Lantus Lantus No Lantus [facility] Solostar Solostar Solostar Com shadi U-100 U-100 [...] SKIN EVERY DAY lisinopril lisinopril No lisinopril [facility] 5 mg tablet 5 mg tablet 5 mg [facility] TAKE 1 TAKE 1 tablet ty TABLET BY TABLET BY TAKE 1 [facility] MOUTH EVERY MOUTH EVERY TABLET BY l DAY DAY MOUTH Clinics EVERY DAY meloxicam meloxicam No meloxicam [facility] 7.5 mg 7.5 mg 7.5 mg [facility] tablet TAKE tablet TAKE tablet ty 1 TABLET BY 1 TABLET BY TAKE 1 [facility]ospita MOUTH EVERY MOUTH EVERY TABLET BY l DAY WITH A DAY WITH A MOUTH Cl inics MEAL MEAL EVERY DAY WITH A MEAL methylpredn methylpredn No methylpred [facility] isolone 4 isolone 4 nisolone 4 [facility]i mg tablets mg tablets mg tablets ty in a dose in a dose in a dose Hospita pack FOLLOW pack FOLLOW pack l PACKAGE PACKAGE FOLLOW Clinics DIRECTIONS DIRECTIONS PACKAGE DIRECTIONS nitrofurant nitrofurant No nitrofuran [facility] oin oin toin Communi monohydrate monohydrate monohydrat ty /macrocryst /macrocryst e/macrocry Hospita als 100 mg als 100 mg stals 100 l capsule capsule mg capsule Cli nics TAKE 1 TAKE 1 TAKE 1 CAPSULE BY CAPSULE BY CAPSULE BY MOUTH TWICE MOUTH TWICE MOUTH DAILY FOR DAILY FOR TWICE 10 DAYS 10 DAYS DAILY FOR 10 DAYS [facility] No [facility] Commu ni ty Hospita l Clinics potassium potassium No potassium [facility] chloride ER chloride ER chloride Communi 10 mEq 10 mEq ER 10 mEq ty tablet,exte tablet,exte tablet,ext Hospita nded nded ended l release release release Clinic s TAKE 1 TAKE 1 TAKE 1 TABLET BY TABLET BY TABLET BY MOUTH EVERY MOUTH EVERY MOUTH DAY DAY EVERY DAY Prolia 60 Prolia 60 No Prolia 60 [facility] mg/mL mg/mL mg/mL Communi subcutaneou subcutaneou subcutaneo ty s syringe 1 s syringe 1 us syringe Hospita ML SUBQ ML SUBQ 1 ML SUBQ l every 6 every 6 every 6 Clinic s months / months / months / m81.0 m81.0 m81.0 osteoporosi osteoporosi osteoporos s / inj s / inj is / inj code 16155 code 84560 code 74710 tramadol 50 tramadol 50 No tramadol [facility] mg tablet mg tablet 50 mg Comm [...] INJECTIONS INSULIN INJECTIONS alprazolam alprazolam No alprazolam [facility] 0.25 mg 0.25 mg 0.25 mg Commun i tablet TAKE tablet TAKE tablet ty 1 TABLET BY 1 TABLET BY TAKE 1 Hospita MOUTH EVERY MOUTH EVERY TABLET BY l NIGHT AT NIGHT AT MOUTH Clinic s BEDTIME BEDTIME EVERY NIGHT AT BEDTIME buspirone 5 buspirone 5 No buspirone [facility] mg tablet mg tablet 5 mg Commu ni TAKE 1 TAKE 1 tablet ty TABLET BY TABLET BY TAKE 1 [facility] MOUTH TWICE MOUTH TWICE TABLET BY l DAILY DAILY MOUTH Clinic s NEEDED NEEDED TWICE DAILY NEEDED cholestyram cholestyram No cholestyra [facility] ine (with ine (with mine (with Communi [...] TIMES DAILY cyanocobala cyanocobala No 1mL cyanocobal [facility] min (vit min (vit villafana (vit Co mmuni B-12) 1,000 B-12) 1,000 B-12) ty mcg/mL mcg/mL 1,000 Hospita injection injection mcg/mL l solution solution injection Cl inics Inject 1 mL Inject 1 mL solution every month every month Inject 1 by by mL every subcutaneou subcutaneou month by s route. s route. subcutaneo us route. diphenoxyla diphenoxyla No diphenoxyl [facility] te-atropine te-atropine ate-atropi Communi 2.5 2.5 ne [...] TABLETS PER DAY duloxetine duloxetine No duloxetine [facility] 30 mg 30 mg 30 mg [facility] capsule,del capsule,del capsule,de ty ayed ayed layed [facility]ospita release release release l TAKE 1 TAKE 1 TAKE 1 Clinics CAPSULE BY CAPSULE BY CAPSULE BY MOUTH EVERY MOUTH EVERY MOUTH DAY DAY EVERY DAY ezetimibe ezetimibe No ezetimibe [facility] 10 mg 10 mg 10 mg [facility] tablet TAKE tablet TAKE tablet ty 1 TABLET BY 1 TABLET BY TAKE 1 Hospita MOUTH EVERY MOUTH EVERY TABLET BY l DAY DAY MOUTH Clinics EVERY DAY Lantus Lantus No Lantus [facility] Solostar Solostar Solostar Com shadi U-100 U-100 [...] SKIN EVERY DAY lisinopril lisinopril No lisinopril [facility] 5 mg tablet 5 mg tablet 5 mg [facility] TAKE 1 TAKE 1 tablet ty TABLET BY TABLET BY TAKE 1 [facility] MOUTH EVERY MOUTH EVERY TABLET BY l DAY DAY MOUTH Clinics EVERY DAY meloxicam meloxicam No meloxicam [facility] 7.5 mg 7.5 mg 7.5 mg [facility] tablet TAKE tablet TAKE tablet ty 1 TABLET BY 1 TABLET BY TAKE 1 Hospita MOUTH EVERY MOUTH EVERY TABLET BY l DAY WITH A DAY WITH A MOUTH Cl inics MEAL MEAL EVERY DAY WITH A MEAL nitrofurant nitrofurant No nitrofuran [facility] oin oin toin Communi monohydrate monohydrate monohydrat ty /macrocryst /macrocryst e/macrocry Hospita als 100 mg als 100 mg stals 100 l capsule capsule mg capsule Cli nics TAKE 1 TAKE 1 TAKE 1 CAPSULE BY CAPSULE BY CAPSULE BY MOUTH TWICE MOUTH TWICE MOUTH DAILY FOR DAILY FOR TWICE 10 DAYS 10 DAYS DAILY FOR 10 DAYS [facility] No [facility] Commu ni ty Hospita l Clinics potassium potassium No potassium [facility] chloride ER chloride ER chloride Communi 10 mEq 10 mEq ER 10 mEq ty tablet,exte tablet,exte tablet,ext Hospita nded nded ended l release release release Clinic s TAKE 1 TAKE 1 TAKE 1 TABLET BY TABLET BY TABLET BY MOUTH EVERY MOUTH EVERY MOUTH DAY DAY EVERY DAY Prolia 60 Prolia 60 No Prolia 60 [facility] mg/mL mg/mL mg/mL Communi subcutaneou subcutaneou subcutaneo ty s syringe 1 s syringe 1 us syringe Hospita ML SUBQ ML SUBQ 1 ML SUBQ l every 6 every 6 every 6 Clinic s months / months / months / m81.0 m81.0 m81.0 osteoporosi osteoporosi osteoporos s / inj s / inj is / inj code 09794 code 84005 code 61675 tramadol 50 tramadol 50 No tramadol [facility] mg tablet mg tablet 50 mg Comm [...] INJECTIONS INSULIN INJECTIONS alprazolam alprazolam No alprazolam [facility] 0.25 mg 0.25 mg 0.25 mg Commun i tablet TAKE tablet TAKE tablet ty 1 TABLET BY 1 TABLET BY TAKE 1 Hospita MOUTH EVERY MOUTH EVERY TABLET BY l NIGHT AT NIGHT AT MOUTH Clinic s BEDTIME BEDTIME EVERY NIGHT AT BEDTIME BD Kaitlin 2nd BD Kait[facility] 2nd No BD Kait[facility] Gen Pen Gen Pen 2nd Gen Commun i Needle 32 Needle 32 Pen Needle ty gauge x gauge x 32 gauge x [facility] " USE " USE " USE l DIRECTED DIRECTED C linics WITH LANTUS WITH LANTUS DIRECTED WITH LANTUS buspirone 5 buspirone 5 No buspirone [facility] mg tablet mg tablet 5 mg Commu ni TAKE 1 TAKE 1 tablet ty TABLET BY TABLET BY TAKE 1 [facility] MOUTH TWICE MOUTH TWICE TABLET BY l DAILY DAILY MOUTH Clinic s NEEDED NEEDED TWICE DAILY NEEDED cholestyram cholestyram No cholestyra [facility] ine (with ine (with mine (with Communi [...] TIMES DAILY cyanocobala cyanocobala No 1mL cyanocobal [facility] min (vit min (vit villafana (vit Co mmuni B-12) 1,000 B-12) 1,000 B-12) ty mcg/mL mcg/mL 1,000 Hospita injection injection mcg/mL l solution solution injection Cl inics Inject 1 mL Inject 1 mL solution every month every month Inject 1 by by mL every subcutaneou subcutaneou month by s route. s route. subcutaneo us route. diphenoxyla diphenoxyla No diphenoxyl [facility] te-atropine te-atropine ate-atropi Communi 2.5 2.5 ne [...] TABLETS PER DAY duloxetine duloxetine No duloxetine [facility] 30 mg 30 mg 30 mg [facility]i capsule,del capsule,del capsule,de ty ayed ayed layed [facility]ospita release release release l TAKE 1 TAKE 1 TAKE 1 Clinics CAPSULE BY CAPSULE BY CAPSULE BY MOUTH EVERY MOUTH EVERY MOUTH DAY DAY EVERY DAY ezetimibe ezetimibe No ezetimibe [facility] 10 mg 10 mg 10 mg Communi tablet TAKE tablet TAKE tablet ty 1 TABLET BY 1 TABLET BY TAKE 1 Hospita MOUTH EVERY MOUTH EVERY TABLET BY l DAY DAY MOUTH Clinics EVERY DAY Lantus Lantus No Lantus [facility] Solostar Solostar Solostar Com shadi U-100 U-100 [...] SKIN EVERY DAY lisinopril lisinopril No lisinopril [facility] 5 mg tablet 5 mg tablet 5 mg [facility] TAKE 1 TAKE 1 tablet ty TABLET BY TABLET BY TAKE 1 [facility] MOUTH EVERY MOUTH EVERY TABLET BY l DAY DAY MOUTH Clinics EVERY DAY meloxicam meloxicam No meloxicam [facility] 7.5 mg 7.5 mg 7.5 mg Communi tablet TAKE tablet TAKE tablet ty 1 TABLET BY 1 TABLET BY TAKE 1 Hospita MOUTH EVERY MOUTH EVERY TABLET BY l DAY WITH A DAY WITH A MOUTH Cl inics MEAL MEAL EVERY DAY WITH A MEAL [facility] No [facility] Commu ni ty Hospita l Clinics potassium potassium No potassium [facility] chloride ER chloride ER chloride Communi 10 mEq 10 mEq ER 10 mEq ty tablet,exte tablet,exte tablet,ext Hospita nded nded ended l release release release Clinic s TAKE 1 TAKE 1 TAKE 1 TABLET BY TABLET BY TABLET BY MOUTH EVERY MOUTH EVERY MOUTH DAY DAY EVERY DAY Prolia 60 Prolia 60 No Prolia 60 [facility] mg/mL mg/mL mg/mL Communi subcutaneou subcutaneou subcutaneo ty s syringe 1 s syringe 1 us syringe Hospita ML SUBQ ML SUBQ 1 ML SUBQ l every 6 every 6 every 6 Clinic s months / months / months / m81.0 m81.0 m81.0 osteoporosi osteoporosi osteoporos s / inj s / inj is / inj code 18375 code 55117 code 44137 tramadol 50 tramadol 50 No tramadol [facility] mg tablet mg tablet 50 mg Comm uni TAKE 1 TAKE 1 tablet ty TABLET BY TABLET BY TAKE 1 [facility] MOUTH EVERY MOUTH EVERY TABLET BY l 6 HOURS 6 HOURS MOUTH Clinics EVERY 6 HOURS alprazolam alprazolam No alprazolam [facility] 0.25 mg 0.25 mg 0.25 mg Commun i tablet TAKE tablet TAKE tablet ty 1 TABLET BY 1 TABLET BY TAKE 1 Hospita MOUTH EVERY MOUTH EVERY TABLET BY l NIGHT AT NIGHT AT MOUTH Clinic s BEDTIME BEDTIME EVERY NIGHT AT BEDTIME BD [facility]aitlin 2nd BD [facility] 2nd No BD [facility]ait[facility] Gen Pen Gen Pen 2nd Gen Commun i Needle 32 Needle 32 Pen Needle ty gauge x gauge x 32 gauge x [facility] " USE " USE " USE l DIRECTED DIRECTED C linics WITH LANTUS WITH LANTUS DIRECTED WITH LANTUS buspirone 5 buspirone 5 No buspirone [facility] mg tablet mg tablet 5 mg Commu ni TAKE 1 TAKE 1 tablet ty TABLET BY TABLET BY TAKE 1 [facility] MOUTH TWICE MOUTH TWICE TABLET BY l DAILY DAILY MOUTH Clinic s NEEDED NEEDED TWICE DAILY NEEDED cholestyram cholestyram No cholestyra [facility] ine (with ine (with mine (with Communi [...] TIMES DAILY cyanocobala cyanocobala No 1mL cyanocobal [facility] min (vit min (vit villafana (vit Co mmuni B-12) 1,000 B-12) 1,000 B-12) ty mcg/mL mcg/mL 1,000 Hospita injection injection mcg/mL l solution solution injection Cl inics Inject 1 mL Inject 1 mL solution every month every month Inject 1 by by mL every subcutaneou subcutaneou month by s route. s route. subcutaneo us route. diphenoxyla diphenoxyla No diphenoxyl [facility] te-atropine te-atropine ate-atropi Communi 2.5 2.5 ne [...] TABLETS PER DAY duloxetine duloxetine No duloxetine [facility] 30 mg 30 mg 30 mg [facility]i capsule,del capsule,del capsule,de ty ayed ayed layed Hospita release release release l TAKE 1 TAKE 1 TAKE 1 Clinics CAPSULE BY CAPSULE BY CAPSULE BY MOUTH EVERY MOUTH EVERY MOUTH DAY DAY EVERY DAY ezetimibe ezetimibe No ezetimibe [facility] 10 mg 10 mg 10 mg [facility]i tablet TAKE tablet TAKE tablet ty 1 TABLET BY 1 TABLET BY TAKE 1 Hospita MOUTH EVERY MOUTH EVERY TABLET BY l DAY DAY MOUTH Clinics EVERY DAY Lantus Lantus No Lantus [facility] Solostar Solostar Solostar Com shdai U-100 U-100 U-100 ty Insulin 100 Insulin 100 Insulin Hospita unit/mL (3 unit/mL (3 100 l mL) mL) unit/mL (3 Clinics subcutaneou subcutaneou mL) s pen s pen subcutaneo ADMINISTER ADMINISTER us pen 80 UNITS 80 UNITS ADMINISTER UNDER THE UNDER THE 80 UNITS SKIN EVERY SKIN EVERY UNDER THE DAY DAY SKIN EVERY DAY lisinopril lisinopril No lisinopril [facility] 5 mg tablet 5 mg tablet 5 mg [facility] TAKE 1 TAKE 1 tablet ty TABLET BY TABLET BY TAKE 1 [facility] MOUTH EVERY MOUTH EVERY TABLET BY l DAY DAY MOUTH Clinics EVERY DAY meloxicam meloxicam No meloxicam [facility] 7.5 mg 7.5 mg 7.5 mg [facility]i tablet TAKE tablet TAKE tablet ty 1 TABLET BY 1 TABLET BY TAKE 1 Hospita MOUTH EVERY MOUTH EVERY TABLET BY l DAY WITH A DAY WITH A MOUTH Cl inics MEAL MEAL EVERY DAY WITH A MEAL [facility] No [facility] Commu ni ty Hospita l Clinics potassium potassium No potassium [facility] chloride ER chloride ER chloride Communi 10 mEq 10 mEq ER 10 mEq ty tablet,exte tablet,exte tablet,ext Hospita nded nded ended l release release release Clinic s TAKE 1 TAKE 1 TAKE 1 TABLET BY TABLET BY TABLET BY MOUTH EVERY MOUTH EVERY MOUTH DAY DAY EVERY DAY Prolia 60 Prolia 60 No Prolia 60 [facility] mg/mL mg/mL mg/mL Communi subcutaneou subcutaneou subcutaneo ty s syringe 1 s syringe 1 us syringe Hospita ML SUBQ ML SUBQ 1 ML SUBQ l every 6 every 6 every 6 Clinic s months / months / months / m81.0 m81.0 m81.0 osteoporosi osteoporosi osteoporos s / inj s / inj is / inj code 68733 code 22451 code 12390 tramadol 50 tramadol 50 No tramadol [facility] mg tablet mg tablet 50 mg Comm uni TAKE 1 TAKE 1 tablet ty TABLET BY TABLET BY TAKE 1 [facility] MOUTH EVERY MOUTH EVERY TABLET BY l 6 HOURS 6 HOURS MOUTH Clinics EVERY 6 HOURS alprazolam alprazolam No alprazolam [facility] 0.25 mg 0.25 mg 0.25 mg Commun i tablet TAKE tablet TAKE tablet ty 1 TABLET BY 1 TABLET BY TAKE 1 Hospita MOUTH EVERY MOUTH EVERY TABLET BY l NIGHT AT NIGHT AT MOUTH Clinic s BEDTIME BEDTIME EVERY NIGHT AT BEDTIME BD [facility]lin 2nd BD [facility] 2nd No BD [facility]ait[facility] Gen Pen Gen Pen 2nd Gen Commun i Needle 32 Needle 32 Pen Needle ty gauge x gauge x 32 gauge x [facility] 5/32" USE 532" USE 5/32" USE l DIRECTED DIRECTED C linics WITH LANTUS WITH LANTUS DIRECTED WITH LANTUS buspirone 5 buspirone 5 No buspirone [facility] mg tablet mg tablet 5 mg Commu ni TAKE 1 TAKE 1 tablet ty TABLET BY TABLET BY TAKE 1 [facility] MOUTH TWICE MOUTH TWICE TABLET BY l DAILY DAILY MOUTH Clinic s NEEDED NEEDED TWICE DAILY NEEDED cholestyram cholestyram No cholestyra [facility] ine (with ine (with mine (with Communi [...] TIMES DAILY cyanocobala cyanocobala No 1mL cyanocobal [facility] min (vit min (vit villafana (vit Co mmuni B-12) 1,000 B-12) 1,000 B-12) ty mcg/mL mcg/mL 1,000 Hospita injection injection mcg/mL l solution solution injection Cl inics Inject 1 mL Inject 1 mL solution every month every month Inject 1 by by mL every subcutaneou subcutaneou month by s route. s route. subcutaneo us route. diphenoxyla diphenoxyla No diphenoxyl [facility] te-atropine te-atropine ate-atropi Communi 2.5 2.5 ne [...] TABLETS PER DAY duloxetine duloxetine No duloxetine [facility] 30 mg 30 mg 30 mg [facility]i capsule,del capsule,del capsule,de ty ayed ayed layed Hospita release release release l TAKE 1 TAKE 1 TAKE 1 Clinics CAPSULE BY CAPSULE BY CAPSULE BY MOUTH EVERY MOUTH EVERY MOUTH DAY DAY EVERY DAY ezetimibe ezetimibe No ezetimibe [facility] 10 mg 10 mg 10 mg Communi tablet TAKE tablet TAKE tablet ty 1 TABLET BY 1 TABLET BY TAKE 1 Hospita MOUTH EVERY MOUTH EVERY TABLET BY l DAY DAY MOUTH Clinics EVERY DAY Lantus Lantus No Lantus [facility] Solostar Solostar Solostar Com shadi U-100 U-100 [...] SKIN EVERY DAY lisinopril lisinopril No lisinopril [facility] 5 mg tablet 5 mg tablet 5 mg [facility] TAKE 1 TAKE 1 tablet ty TABLET BY TABLET BY TAKE 1 [facility] MOUTH EVERY MOUTH EVERY TABLET BY l DAY DAY MOUTH Clinics EVERY DAY meloxicam meloxicam No meloxicam [facility] 7.5 mg 7.5 mg 7.5 mg Communi tablet TAKE tablet TAKE tablet ty 1 TABLET BY 1 TABLET BY TAKE 1 Hospita MOUTH EVERY MOUTH EVERY TABLET BY l DAY WITH A DAY WITH A MOUTH Cl inics MEAL MEAL EVERY DAY WITH A MEAL nitrofurant nitrofurant No nitrofuran [facility] oin oin toin Communi monohydrate monohydrate monohydrat ty /macrocryst /macrocryst e/macrocry Hospita als 100 mg als 100 mg stals 100 l capsule capsule mg capsule Cli nics TAKE 1 TAKE 1 TAKE 1 CAPSULE BY CAPSULE BY CAPSULE BY MOUTH TWICE MOUTH TWICE MOUTH DAILY FOR DAILY FOR TWICE 10 DAYS 10 DAYS DAILY FOR 10 DAYS [facility] l Clinics potassium potassium No potassium [facility] chloride ER chloride ER chloride Communi 10 mEq 10 mEq ER 10 mEq ty tablet,exte tablet,exte tablet,ext Hospita nded nded ended l release release release Clinic s TAKE 1 TAKE 1 TAKE 1 TABLET BY TABLET BY TABLET BY MOUTH EVERY MOUTH EVERY MOUTH DAY DAY EVERY DAY Prolia 60 Prolia 60 No Prolia 60 [facility] mg/mL mg/mL mg/mL Communi subcutaneou subcutaneou subcutaneo ty s syringe 1 s syringe 1 us syringe Hospita ML SUBQ ML SUBQ 1 ML SUBQ l every 6 every 6 every 6 Clinic s months / months / months / m81.0 m81.0 m81.0 osteoporosi osteoporosi osteoporos s / inj s / inj is / inj code 78232 code 96739 code 25410 tramadol 50 tramadol 50 No tramadol [facility] mg tablet mg tablet 50 mg Comm uni TAKE 1 TAKE 1 tablet ty TABLET BY TABLET BY TAKE 1 [facility] MOUTH EVERY MOUTH EVERY TABLET BY l 6 HOURS 6 HOURS MOUTH Clinics EVERY 6 HOURS alprazolam alprazolam No alprazolam [facility] 0.25 mg 0.25 mg 0.25 mg Commun i tablet TAKE tablet TAKE tablet ty 1 TABLET BY 1 TABLET BY TAKE 1 [facility]ospita MOUTH EVERY MOUTH EVERY TABLET BY l NIGHT AT NIGHT AT MOUTH Clinic s BEDTIME BEDTIME EVERY NIGHT AT BEDTIME BD [facility] 2nd BD [facility] 2nd No BD [facility] Gen Pen Gen Pen 2nd Gen Commun i Needle 32 Needle 32 Pen Needle ty gauge x gauge x 32 gauge x [facility] " USE " USE " USE l DIRECTED DIRECTED C linics WITH LANTUS WITH LANTUS DIRECTED WITH LANTUS buspirone 5 buspirone 5 No buspirone [facility] mg tablet mg tablet 5 mg Commu ni TAKE 1 TAKE 1 tablet ty TABLET BY TABLET BY TAKE 1 [facility] MOUTH TWICE MOUTH TWICE TABLET BY l DAILY DAILY MOUTH Clinic s NEEDED NEEDED TWICE DAILY NEEDED cefuroxime cefuroxime No 1 Q12H cefuroxime [facility] axetil 500 axetil 500 axetil 500 Communi mg tablet mg tablet mg tablet ty Take 1 Take 1 Take 1 Hospita tablet tablet tablet l every 12 every 12 every 12 Cli nics hours by hours by hours by oral route. oral route. oral route. cholestyram cholestyram No cholestyra [facility] ine (with ine (with mine (with Communi [...] TIMES DAILY cyanocobala cyanocobala No 1mL cyanocobal [facility] min (vit min (vit villafana (vit Co mmuni B-12) 1,000 B-12) 1,000 B-12) ty mcg/mL mcg/mL 1,000 Hospita injection injection mcg/mL l solution solution injection Cl inics Inject 1 mL Inject 1 mL solution every month every month Inject 1 by by mL every subcutaneou subcutaneou month by s route. s route. subcutaneo us route. diphenoxyla diphenoxyla No diphenoxyl [facility] te-atropine te-atropine ate-atropi Communi 2.5 2.5 ne [...] TABLETS PER DAY duloxetine duloxetine No duloxetine [facility] 30 mg 30 mg 30 mg Communi capsule,del capsule,del capsule,de ty ayed ayed layed Hospita release release release l TAKE 1 TAKE 1 TAKE 1 Clinics CAPSULE BY CAPSULE BY CAPSULE BY MOUTH EVERY MOUTH EVERY MOUTH DAY DAY EVERY DAY ezetimibe ezetimibe No ezetimibe [facility] 10 mg 10 mg 10 mg Communi tablet TAKE tablet TAKE tablet ty 1 TABLET BY 1 TABLET BY TAKE 1 Hospita MOUTH EVERY MOUTH EVERY TABLET BY l DAY DAY MOUTH Clinics EVERY DAY Lantus Lantus No Lantus [facility] Solostar Solostar Solostar Com shadi U-100 U-100 [...] SKIN EVERY DAY lisinopril lisinopril No lisinopril [facility] 5 mg tablet 5 mg tablet 5 mg [facility] TAKE 1 TAKE 1 tablet ty TABLET BY TABLET BY TAKE 1 [facility] MOUTH EVERY MOUTH EVERY TABLET BY l DAY DAY MOUTH Clinics EVERY DAY meloxicam meloxicam No meloxicam [facility] 7.5 mg 7.5 mg 7.5 mg Communi tablet TAKE tablet TAKE tablet ty 1 TABLET BY 1 TABLET BY TAKE 1 Hospita MOUTH EVERY MOUTH EVERY TABLET BY l DAY WITH A DAY WITH A MOUTH Cl inics MEAL MEAL EVERY DAY WITH A MEAL nitrofurant nitrofurant No nitrofuran [facility] oin oin toin Communi monohydrate monohydrate monohydrat ty /macrocryst /macrocryst e/macrocry Hospita als 100 mg als 100 mg stals 100 l capsule capsule mg capsule Cli nics TAKE 1 TAKE 1 TAKE 1 CAPSULE BY CAPSULE BY CAPSULE BY MOUTH TWICE MOUTH TWICE MOUTH DAILY FOR DAILY FOR TWICE 10 DAYS 10 DAYS DAILY FOR 10 DAYS [facility]ite [facility] uvite Eye No [facility] Commu ni ty Hospita l Clinics potassium potassium No potassium [facility] chloride ER chloride ER chloride Communi 10 mEq 10 mEq ER 10 mEq ty tablet,exte tablet,exte tablet,ext Hospita nded nded ended l release release release Clinic s TAKE 1 TAKE 1 TAKE 1 TABLET BY TABLET BY TABLET BY MOUTH EVERY MOUTH EVERY MOUTH DAY DAY EVERY DAY Prolia 60 Prolia 60 No Prolia 60 [facility] mg/mL mg/mL mg/mL Communi subcutaneou subcutaneou subcutaneo ty s syringe 1 s syringe 1 us syringe Hospita ML SUBQ ML SUBQ 1 ML SUBQ l every 6 every 6 every 6 Clinic s months / months / months / m81.0 m81.0 m81.0 osteoporosi osteoporosi osteoporos s / inj s / inj is / inj code 00107 code 08284 code 50867 tramadol 50 tramadol 50 No tramadol [facility] mg tablet mg tablet 50 mg Comm uni TAKE 1 TAKE 1 tablet ty TABLET BY TABLET BY TAKE 1 [facility] MOUTH EVERY MOUTH EVERY TABLET BY l 6 HOURS 6 HOURS MOUTH Clinics EVERY 6 HOURS alprazolam alprazolam No alprazolam [facility] 0.25 mg 0.25 mg 0.25 mg Commun i tablet TAKE tablet TAKE tablet ty 1 TABLET BY 1 TABLET BY TAKE 1 Hospita MOUTH EVERY MOUTH EVERY TABLET BY l NIGHT AT NIGHT AT MOUTH Clinic s BEDTIME BEDTIME EVERY NIGHT AT BEDTIME BD [facility] 2nd BD [facility] 2nd No BD Kaitlin [facility] Gen Pen Gen Pen 2nd Gen Commun i Needle 32 Needle 32 Pen Needle ty gauge x gauge x 32 gauge x [facility] 5/32" USE 5/32" USE 5/32" USE l DIRECTED DIRECTED C linics WITH LANTUS WITH LANTUS DIRECTED WITH LANTUS buspirone 5 buspirone 5 No buspirone [facility] mg tablet mg tablet 5 mg Commu ni TAKE 1 TAKE 1 tablet ty TABLET BY TABLET BY TAKE 1 [facility] MOUTH TWICE MOUTH TWICE TABLET BY l DAILY DAILY MOUTH Clinic s NEEDED NEEDED TWICE DAILY NEEDED cholestyram cholestyram No cholestyra [facility] ine (with ine (with mine (with Communi [...] TIMES DAILY cyanocobala cyanocobala No 1mL cyanocobal [facility] min (vit min (vit villafana (vit Co mmuni B-12) 1,000 B-12) 1,000 B-12) ty mcg/mL mcg/mL 1,000 Hospita injection injection mcg/mL l solution solution injection Cl inics Inject 1 mL Inject 1 mL solution every month every month Inject 1 by by mL every subcutaneou subcutaneou month by s route. s route. subcutaneo us route. diphenoxyla diphenoxyla No diphenoxyl [facility] te-atropine te-atropine ate-atropi Communi 2.5 2.5 ne [...] TABLETS PER DAY duloxetine duloxetine No duloxetine [facility] 30 mg 30 mg 30 mg Communi capsule,del capsule,del capsule,de ty ayed ayed layed Hospita release release release l TAKE 1 TAKE 1 TAKE 1 Clinics CAPSULE BY CAPSULE BY CAPSULE BY MOUTH EVERY MOUTH EVERY MOUTH DAY DAY EVERY DAY ezetimibe ezetimibe No ezetimibe [facility] 10 mg 10 mg 10 mg Communi tablet TAKE tablet TAKE tablet ty 1 TABLET BY 1 TABLET BY TAKE 1 Hospita MOUTH EVERY MOUTH EVERY TABLET BY l DAY DAY MOUTH Clinics EVERY DAY Lantus Lantus No Lantus [facility] Solostar Solostar Solostar Com shadi U-100 U-100 [...] SKIN EVERY DAY lisinopril lisinopril No lisinopril [facility] 5 mg tablet 5 mg tablet 5 mg [facility] TAKE 1 TAKE 1 tablet ty TABLET BY TABLET BY TAKE 1 [facility] MOUTH EVERY MOUTH EVERY TABLET BY l DAY DAY MOUTH Clinics EVERY DAY nitrofurant nitrofurant No nitrofuran [facility] oin oin toin Communi monohydrate monohydrate monohydrat ty /macrocryst /macrocryst e/macrocry Hospita als 100 mg als 100 mg stals 100 l capsule capsule mg capsule Cli nics TAKE 1 TAKE 1 TAKE 1 CAPSULE BY CAPSULE BY CAPSULE BY MOUTH TWICE MOUTH TWICE MOUTH DAILY FOR DAILY FOR TWICE 10 DAYS 10 DAYS DAILY FOR 10 DAYS [facility] No [facility] Commu ni ty Hospita l Clinics potassium potassium No potassium [facility] chloride ER chloride ER chloride Communi 10 mEq 10 mEq ER 10 mEq ty tablet,exte tablet,exte tablet,ext Hospita nded nded ended l release release release Clinic s TAKE 1 TAKE 1 TAKE 1 TABLET BY TABLET BY TABLET BY MOUTH EVERY MOUTH EVERY MOUTH DAY DAY EVERY DAY prednisone prednisone No 1 Q1D prednisone [facility] 5 mg tablet 5 mg tablet 5 mg C om[facility]i Take 1 Take 1 tablet ty tablet tablet Take 1 Hospita every day every day tablet l by oral by oral every day Clin ics route with route with by oral meals. meals. route with meals. Prolia 60 Prolia 60 No Prolia 60 [facility] mg/mL mg/mL mg/mL Communi subcutaneou subcutaneou subcutaneo ty s syringe 1 s syringe 1 us syringe Hospita ML SUBQ ML SUBQ 1 ML SUBQ l every 6 every 6 every 6 Clinic s months / months / months / m81.0 m81.0 m81.0 osteoporosi osteoporosi osteoporos s / inj s / inj is / inj code 94683 code 72543 code 21529 tramadol 50 tramadol 50 No tramadol [facility] mg tablet mg tablet 50 mg Comm uni TAKE 1 TAKE 1 tablet ty TABLET BY TABLET BY TAKE 1 [facility] MOUTH EVERY MOUTH EVERY TABLET BY l 6 HOURS 6 HOURS MOUTH Clinics EVERY 6 HOURS alprazolam alprazolam No alprazolam [facility] 0.25 mg 0.25 mg 0.25 mg Commun i tablet TAKE tablet TAKE tablet ty 1 TABLET BY 1 TABLET BY TAKE 1 Hospita MOUTH EVERY MOUTH EVERY TABLET BY l NIGHT AT NIGHT AT MOUTH Clinic s BEDTIME BEDTIME EVERY NIGHT AT BEDTIME BD Kaitlin 2nd BD Kaitlin 2nd No BD Kaitlin [facility] Gen Pen Gen Pen 2nd Gen Commun i Needle 32 Needle 32 Pen Needle ty gauge x gauge x 32 gauge x [facility] " USE " USE " USE l DIRECTED DIRECTED C linics WITH LANTUS WITH LANTUS DIRECTED WITH LANTUS cyanocobala cyanocobala No 1mL cyanocobal [facility] min (vit min (vit villafana (vit Co mmuni B-12) 1,000 B-12) 1,000 B-12) ty mcg/mL mcg/mL 1,000 Hospita injection injection mcg/mL l solution solution injection Cl inics Inject 1 mL Inject 1 mL solution every month every month Inject 1 by by mL every subcutaneou subcutaneou month by s route. s route. subcutaneo us route. meloxicam meloxicam No meloxicam [facility] 7.5 mg 7.5 mg 7.5 mg Communi tablet TAKE tablet TAKE tablet ty 1 TABLET BY 1 TABLET BY TAKE 1 Hospita MOUTH EVERY MOUTH EVERY TABLET BY l DAY WITH A DAY WITH A MOUTH Cl inics MEAL MEAL EVERY DAY [facility] ni ty [facility]ospita l Clinics potassium potassium No potassium [facility] chloride ER chloride ER chloride Communi 10 mEq 10 mEq ER 10 mEq ty tablet,exte tablet,exte tablet,ext Hospita nded nded ended l release release release Clinic s TAKE 1 TAKE 1 TAKE 1 TABLET BY TABLET BY TABLET BY MOUTH EVERY MOUTH EVERY MOUTH DAY DAY EVERY DAY prednisone prednisone No prednisone [facility] 5 mg tablet 5 mg tablet 5 mg C ommuni TAKE 1 TAKE 1 tablet ty TABLET TABLET TAKE 1 Hospita every other every other TABLET l day day every Clinics other day Prolia 60 Prolia 60 No Prolia 60 [facility] mg/mL mg/mL mg/mL Communi subcutaneou subcutaneou subcutaneo ty s syringe 1 s syringe 1 us syringe Hospita ML SUBQ ML SUBQ 1 ML SUBQ l every 6 every 6 every 6 Clinic s months / months / months / m81.0 m81.0 m81.0 osteoporosi osteoporosi osteoporos s / inj s / inj is / inj code 52151 code 78949 code 07099 Tylenol Tylenol No 2 Q8H Tylenol [facility] Arthritis Arthritis Arthritis Communi Pain 650 mg Pain 650 mg Pain 650 ty tablet,exte tablet,exte mg H ospita nded nded tablet,ext l release release ended Clinics Take 2 Take 2 release tablets tablets Take 2 every 8 every 8 tablets hours by hours by every 8 oral route. oral route. hours by oral route. alprazolam alprazolam No alprazolam [facility] 0.25 mg 0.25 mg 0.25 mg Commun i tablet TAKE tablet TAKE tablet ty 1 TABLET BY 1 TABLET BY TAKE 1 Hospita MOUTH EVERY MOUTH EVERY TABLET BY l NIGHT AT NIGHT AT MOUTH Clinic s BEDTIME BEDTIME EVERY NIGHT AT BEDTIME amoxicillin amoxicillin No amoxicilli [facility] [id number] n 875 Communi mg-potassiu mg-potassiu mg-potassi ty m m um Hospita clavulanate clavulanate clavulanat l 125 mg 125 mg e 125 mg Clinics tablet TAKE tablet TAKE tablet 1 TABLET BY 1 TABLET BY TAKE 1 MOUTH EVERY MOUTH EVERY TABLET BY 12 HOURS 12 HOURS MOUTH FOR 10 DAYS FOR 10 DAYS EVERY 12 HOURS FOR 10 DAYS aspirin 81 aspirin 81 No aspirin 81 [facility] mg mg mg Communi tablet,cj tablet,cj tablet,del ty yed release yed release ayed H ospita TAKE 1 TAKE 1 release l TABLET BY TABLET BY TAKE 1 Cli nics MOUTH EVERY MOUTH EVERY TABLET BY DAY DAY MOUTH EVERY DAY BD Kaitlin 2nd BD Kaitlin 2nd No BD Kaitlin [facility] Gen Pen Gen Pen 2nd Gen Commun i Needle 32 Needle 32 Pen Needle ty gauge x gauge x 32 gauge x [facility] " USE " USE " USE l DIRECTED DIRECTED C linics WITH LANTUS WITH LANTUS DIRECTED WITH LANTUS Brilinta 90 Brilinta 90 No Brilinta [facility] mg tablet mg tablet 90 mg Comm uni TAKE 1 TAKE 1 tablet ty TABLET BY TABLET BY TAKE 1 [facility] MOUTH TWICE MOUTH TWICE TABLET BY l DAILY DAILY MOUTH Clinics TWICE DAILY cyanocobala cyanocobala No 1mL cyanocobal [facility] min (vit min (vit villafana (vit Co mmuni B-12) 1,000 B-12) 1,000 B-12) ty mcg/mL mcg/mL 1,000 Hospita injection injection mcg/mL l solution solution injection Cl inics Inject 1 mL Inject 1 mL solution every month every month Inject 1 by by mL every subcutaneou subcutaneou month by s route. s route. subcutaneo us route. ezetimibe ezetimibe No 1 Q1D ezetimibe [facility] 10 mg 10 mg 10 mg Communi tablet Take tablet Take tablet ty 1 tablet 1 tablet Take 1 Hospi ta every day every day tablet l by oral by oral every day Clin ics route. route. by oral route. meloxicam meloxicam No meloxicam [facility] 7.5 mg 7.5 mg 7.5 mg Communi tablet TAKE tablet TAKE tablet ty 1 TABLET BY 1 TABLET BY TAKE 1 Hospita MOUTH EVERY MOUTH EVERY TABLET BY l DAY WITH A DAY WITH A MOUTH Cl inics MEAL MEAL EVERY DAY WITH A MEAL metoprolol metoprolol No .5 BID metoprolol [facility] tartrate 25 tartrate 25 tartrate Communi mg tablet mg tablet 25 mg ty Take 0.5 Take 0.5 tablet Hospi ta tablets tablets Take 0.5 l twice a day twice a day tablets Clinics by oral by oral twice a route for route for day by 30 days. 30 days. oral route for 30 days. [facility] Commu ni ty Hospita l Clinics pantoprazol pantoprazol No 1 Q1D pantoprazo [facility] e 40 mg e 40 mg le 40 mg Commu ni tablet,cj tablet,cj tablet,del ty yed release yed release ayed H ospita Take 1 Take 1 release l tablet tablet Take 1 Clinics every day every day tablet by oral by oral every day route. route. by oral route. potassium potassium No potassium [facility] chloride ER chloride ER chloride Communi 10 mEq 10 mEq ER 10 mEq ty tablet,exte tablet,exte tablet,ext Hospita nded nded ended l release release release Clinic s TAKE 1 TAKE 1 TAKE 1 TABLET BY TABLET BY TABLET BY MOUTH EVERY MOUTH EVERY MOUTH DAY DAY EVERY DAY Prolia 60 Prolia 60 No Prolia 60 [facility] mg/mL mg/mL mg/mL Communi subcutaneou subcutaneou subcutaneo ty s syringe 1 s syringe 1 us syringe Hospita ML SUBQ ML SUBQ 1 ML SUBQ l every 6 every 6 every 6 Clinic s months / months / months / m81.0 m81.0 m81.0 osteoporosi osteoporosi osteoporos s / inj s / inj is / inj code 33655 code 42972 code 94687 Tylenol Tylenol No 2 Q8H Tylenol [facility] Arthritis Arthritis Arthritis [facility] Pain 650 mg Pain 650 mg Pain 650 ty tablet,exte tablet,exte mg H ospita nded nded tablet,ext l release release ended Clinics Take 2 Take 2 release tablets tablets Take 2 every 8 every 8 tablets hours by hours by every 8 oral route. oral route. hours by oral route. acetaminoph acetaminoph No 1 Q6H acetaminop [facility] en 300 en 300 hen 300 Communi mg-codeine mg-codeine mg-codeine ty 30 mg 30 mg 30 mg Hospita tablet Take tablet Take tablet l 1 tablet 1 tablet Take 1 Clini cs every 6 every 6 tablet hours by hours by every 6 oral route. oral route. hours by oral route. alprazolam alprazolam No alprazolam [facility] 0.25 mg 0.25 mg 0.25 mg Commun i tablet TAKE tablet TAKE tablet ty 1 TABLET BY 1 TABLET BY TAKE 1 Hospita MOUTH EVERY MOUTH EVERY TABLET BY l NIGHT AT NIGHT AT MOUTH Clinic s BEDTIME BEDTIME EVERY NIGHT AT BEDTIME aspirin 81 aspirin 81 No aspirin 81 [facility] mg mg mg Communi tablet,cj tablet,cj tablet,del ty yed release yed release ayed H ospita TAKE 1 TAKE 1 release l TABLET BY TABLET BY TAKE 1 Cli nics MOUTH EVERY MOUTH EVERY TABLET BY DAY DAY MOUTH EVERY DAY BD Kaitlin 2nd BD Kaitlin 2nd No BD Kaitlin [facility] Gen Pen Gen Pen 2nd Gen Commun i Needle 32 Needle 32 Pen Needle ty gauge x gauge x 32 gauge x [facility] " USE " USE " USE l DIRECTED DIRECTED C linics WITH LANTUS WITH LANTUS DIRECTED WITH LANTUS Brilinta 90 Brilinta 90 No Brilinta [facility] mg tablet mg tablet 90 mg Comm uni TAKE 1 TAKE 1 tablet ty TABLET BY TABLET BY TAKE 1 [facility] MOUTH TWICE MOUTH TWICE TABLET BY l DAILY DAILY MOUTH Clinics TWICE DAILY cyanocobala cyanocobala No 1mL cyanocobal [facility] min (vit min (vit villafana (vit Co mmuni B-12) 1,000 B-12) 1,000 B-12) ty mcg/mL mcg/mL 1,000 Hospita injection injection mcg/mL l solution solution injection Cl inics Inject 1 mL Inject 1 mL solution every month every month Inject 1 by by mL every subcutaneou subcutaneou month by s route. s route. subcutaneo us route. ezetimibe ezetimibe No 1 Q1D ezetimibe [facility] 10 mg 10 mg 10 mg Communi tablet Take tablet Take tablet ty 1 tablet 1 tablet Take 1 Hospi ta every day every day tablet l by oral by oral every day Clin ics route. route. by oral route. Lexapro 5 Lexapro 5 No 1 Q1D Lexapro 5 [facility] mg tablet mg tablet mg tablet Communi Take 1 Take 1 Take 1 ty tablet tablet tablet Hospita every day every day every day l by oral by oral by oral Clinic s route. route. route. metoprolol metoprolol No .5 BID metoprolol [facility] tartrate 25 tartrate 25 tartrate Communi mg tablet mg tablet 25 mg ty Take 0.5 Take 0.5 tablet Hospi ta tablets tablets Take 0.5 l twice a day twice a day tablets Clinics by oral by oral twice a route for route for day by 30 days. 30 days. oral route for 30 days. [facility] Commu ni ty Hospita l Clinics pantoprazol pantoprazol No pantoprazo [facility] e 40 mg e 40 mg le 40 mg Commu ni tablet,cj tablet,cj tablet,del ty yed release yed release ayed H ospita TAKE 1 TAKE 1 release l TABLET BY TABLET BY TAKE 1 Cli nics MOUTH EVERY MOUTH EVERY TABLET BY DAY DAY MOUTH EVERY DAY potassium potassium No potassium [facility] chloride ER chloride ER chloride Communi 10 mEq 10 mEq ER 10 mEq ty tablet,exte tablet,exte tablet,ext Hospita nded nded ended l release release release Clinic s TAKE 1 TAKE 1 TAKE 1 TABLET BY TABLET BY TABLET BY MOUTH EVERY MOUTH EVERY MOUTH DAY DAY EVERY DAY prednisone prednisone No 1 Q1D prednisone [facility] 2.5 mg 2.5 mg 2.5 mg Communi tablet Take tablet Take tablet ty 1 tablet 1 tablet Take 1 Hospi ta every day every day tablet l by oral by oral every day Clin ics route. route. by oral route. Prolia 60 Prolia 60 No Prolia 60 [facility] mg/mL mg/mL mg/mL Communi subcutaneou subcutaneou subcutaneo ty s syringe 1 s syringe 1 us syringe Hospita ML SUBQ ML SUBQ 1 ML SUBQ l every 6 every 6 every 6 Clinic s months / months / months / m81.0 m81.0 m81.0 osteoporosi osteoporosi osteoporos s / inj s / inj is / inj code 48834 code 94572 code 73488 Tylenol Tylenol No 2 Q8H Tylenol [facility] Arthritis Arthritis Arthritis [facility] Pain 650 mg Pain 650 mg Pain 650 ty tablet,exte tablet,exte mg H ospita nded nded tablet,ext l release release ended Clinics Take 2 Take 2 release tablets tablets Take 2 every 8 every 8 tablets hours by hours by every 8 oral route. oral route. hours by oral route. acetaminoph acetaminoph No 1 Q6H acetaminop [facility] en 300 en 300 hen 300 Communi mg-codeine mg-codeine mg-codeine ty 30 mg 30 mg 30 mg Hospita tablet Take tablet Take tablet l 1 tablet 1 tablet Take 1 Clini cs every 6 every 6 tablet hours by hours by every 6 oral route. oral route. hours by oral route. alprazolam alprazolam No alprazolam [facility] 0.25 mg 0.25 mg 0.25 mg Commun i tablet TAKE tablet TAKE tablet ty 1 TABLET BY 1 TABLET BY TAKE 1 Hospita MOUTH EVERY MOUTH EVERY TABLET BY l NIGHT AT NIGHT AT MOUTH Clinic s BEDTIME BEDTIME EVERY NIGHT AT BEDTIME aspirin 81 aspirin 81 No aspirin 81 [facility] mg mg mg Communi tablet,cj tablet,cj tablet,del ty yed release yed release ayed H ospita TAKE 1 TAKE 1 release l TABLET BY TABLET BY TAKE 1 Cli nics MOUTH EVERY MOUTH EVERY TABLET BY DAY DAY MOUTH EVERY DAY atorvastati atorvastati No atorvastat [facility] n 40 mg n 40 mg in 40 mg Commu ni tablet TAKE tablet TAKE tablet ty 1 TABLET BY 1 TABLET BY TAKE 1 Hospita MOUTH AT MOUTH AT TABLET BY l BEDTIME BEDTIME MOUTH AT Clini cs BEDTIME BD Kaitlin 2nd BD Kaitlin 2nd No BD Kaitlin [facility] Gen Pen Gen Pen 2nd Gen Commun i Needle 32 Needle 32 Pen Needle ty gauge x gauge x 32 gauge x [facility] " USE " USE " USE l DIRECTED DIRECTED C linics WITH LANTUS WITH LANTUS DIRECTED WITH LANTUS Brilinta 90 Brilinta 90 No Brilinta [facility] mg tablet mg tablet 90 mg Comm uni TAKE 1 TAKE 1 tablet ty TABLET BY TABLET BY TAKE 1 [facility] MOUTH TWICE MOUTH TWICE TABLET BY l DAILY DAILY MOUTH Clinics TWICE DAILY cyanocobala cyanocobala No 1mL cyanocobal [facility] min (vit min (vit villafana (vit Co mmuni B-12) 1,000 B-12) 1,000 B-12) ty mcg/mL mcg/mL 1,000 Hospita injection injection mcg/mL l solution solution injection Cl inics Inject 1 mL Inject 1 mL solution every month every month Inject 1 by by mL every subcutaneou subcutaneou month by s route. s route. subcutaneo us route. escitalopra escitalopra No escitalopr [facility] m 5 mg m 5 mg am 5 mg Communi tablet TAKE tablet TAKE tablet ty 1 TABLET BY 1 TABLET BY TAKE 1 Hospita MOUTH EVERY MOUTH EVERY TABLET BY l DAY DAY MOUTH Clinics EVERY DAY ezetimibe ezetimibe No 1 Q1D ezetimibe [facility] 10 mg 10 mg 10 mg Communi tablet Take tablet Take tablet ty 1 tablet 1 tablet Take 1 Hospi ta every day every day tablet l by oral by oral every day Clin ics route. route. by oral route. lisinopril lisinopril No lisinopril [facility] 5 mg tablet 5 mg tablet 5 mg C ommuni TAKE 1 TAKE 1 tablet ty TABLET BY TABLET BY TAKE 1 [facility] MOUTH EVERY MOUTH EVERY TABLET BY l DAY DAY MOUTH Clinics EVERY DAY metoprolol metoprolol No metoprolol [facility] tartrate 25 tartrate 25 tartrate Communi mg tablet mg tablet 25 mg ty Take 0.5 Take 0.5 tablet Hospi ta tablets tablets Take 0.5 l twice a day twice a day tablets Clinics by oral by oral twice a route for route for day by 30 days. 30 days. oral route for 30 days. [facility] Commu ni ty Hospita l Clinics pantoprazol pantoprazol No pantoprazo [facility] e 40 mg e 40 mg le 40 mg Commu ni tablet,cj tablet,cj tablet,del ty yed release yed release ayed H ospita TAKE 1 TAKE 1 release l TABLET BY TABLET BY TAKE 1 Cli nics MOUTH EVERY MOUTH EVERY TABLET BY DAY DAY MOUTH EVERY DAY potassium potassium No potassium [facility] chloride ER chloride ER chloride Communi 10 mEq 10 mEq ER 10 mEq ty tablet,exte tablet,exte tablet,ext Hospita nded nded ended l release release release Clinic s TAKE 1 TAKE 1 TAKE 1 TABLET BY TABLET BY TABLET BY MOUTH EVERY MOUTH EVERY MOUTH DAY DAY EVERY DAY prednisone prednisone No prednisone [facility] 2.5 mg 2.5 mg 2.5 mg Communi tablet TAKE tablet TAKE tablet ty 1 TABLET BY 1 TABLET BY TAKE 1 Hospita MOUTH EVERY MOUTH EVERY TABLET BY l DAY DAY MOUTH Clinics EVERY DAY Prolia 60 Prolia 60 No Prolia 60 [facility] mg/mL mg/mL mg/mL Communi subcutaneou subcutaneou subcutaneo ty s syringe 1 s syringe 1 us syringe Hospita ML SUBQ ML SUBQ 1 ML SUBQ l every 6 every 6 every 6 Clinic s months / months / months / m81.0 m81.0 m81.0 osteoporosi osteoporosi osteoporos s / inj s / inj is / inj code 22130 code 93791 code 74861 Tylenol Tylenol No 2 Q8H Tylenol [facility] Arthritis Arthritis Arthritis [facility] Pain 650 mg Pain 650 mg Pain 650 ty tablet,exte tablet,exte mg H ospita nded nded tablet,ext l release release ended Clinics Take 2 Take 2 release tablets tablets Take 2 every 8 every 8 tablets hours by hours by every 8 oral route. oral route. hours by oral route. alprazolam alprazolam No alprazolam [facility] 0.25 mg 0.25 mg 0.25 mg Commun i tablet TAKE tablet TAKE tablet ty 1 TABLET BY 1 TABLET BY TAKE 1 Hospita MOUTH EVERY MOUTH EVERY TABLET BY l NIGHT AT NIGHT AT MOUTH Clinic s BEDTIME BEDTIME EVERY NIGHT AT BEDTIME [id number] A84-Ricxt No 1 Q1D [id number] [facility] 1,000 mcg 1,000 mcg 1,000 mcg Communi tablet Take tablet Take tablet ty 1 tablet 1 tablet Take 1 Hospi ta every day every day tablet l by oral by oral every day Clin ics route. route. by oral route. cyanocobala cyanocobala No 1mL cyanocobal [facility] min (vit min (vit villafana (vit Co mmuni B-12) 1,000 B-12) 1,000 B-12) ty mcg/mL mcg/mL 1,000 Hospita injection injection mcg/mL l solution solution injection Cl inics Inject 1 mL Inject 1 mL solution every month every month Inject 1 by by mL every subcutaneou subcutaneou month by s route. s route. subcutaneo us route. Lantus Lantus No Lantus [facility] Solostar Solostar Solostar Com shadi U-100 U-100 [...] SKIN EVERY DAY levothyroxi levothyroxi No levothyrox [facility] ne 25 mcg ne 25 mcg ine 25 mcg Communi tablet TAKE tablet TAKE tablet ty 1 TABLET BY 1 TABLET BY TAKE 1 Hospita MOUTH EVERY MOUTH EVERY TABLET BY l DAY DAY MOUTH Clinics EVERY DAY lisinopril lisinopril No lisinopril [facility] 10 mg 10 mg 10 mg Communi tablet Take tablet Take tablet ty 1 tablet 1 tablet Take 1 Hospi ta every day every day tablet l by oral by oral every day Clin ics route. route. by oral route. Multi For Multi For No Multi For [facility] Her Her Her Communi ty Hospita l Clinics Vital Signs Vital Name Observation Time Observation Value Comments Source BP Diastolic 2023-04-24 00:00:00 60 mm[Hg] [facility] s Height 2023-04-24 00:00:00 67 [in_i] [facility] s BMI (Body Mass 2023-04-24 00:00:00 22.2 kg/m2 [facility] s BP Systolic 2023-04-24 00:00:00 138 mm[Hg] [facility] s Body Weight 2023-04-24 00:00:00 2272 [oz_av] [facility] s BP Diastolic 2023-03-16 00:00:00 70 mm[Hg] [facility] s Height 2023-03-16 00:00:00 67 [in_i] [facility] s BMI (Body Mass 2023-03-16 00:00:00 22.4 kg/m2 [facility] s BP Systolic 2023-03-16 00:00:00 116 mm[Hg] [facility] s Body Weight 2023-03-16 00:00:00 2292.8 [oz_av] [facility] s BP Diastolic 2023-02-23 00:00:00 60 mm[Hg] [facility] s Height 2023-02-23 00:00:00 67 [in_i] [facility] s BMI (Body Mass 2023-02-23 00:00:00 22.4 kg/m2 [facility]) [facility] s BP Systolic 2023-02-23 00:00:00 100 mm[Hg] [facility] s Body Weight 2023-02-23 00:00:00 2288 [oz_av] [facility] s BP Diastolic 2023-01-30 00:00:00 54 mm[Hg] [facility] s Height 2023-01-30 00:00:00 67 [in_i] [facility] s BMI (Body Mass 2023-01-30 00:00:00 22.6 kg/m2 [facility] s BP Systolic 2023-01-30 00:00:00 130 mm[Hg] [facility] s Body Weight 2023-01-30 00:00:00 2307.2 [oz_av] [facility] s BP Diastolic 2023-01-04 00:00:00 70 mm[Hg] [facility] s Height 2023-01-04 00:00:00 67 [in_i] [facility] s BMI (Body Mass 2023-01-04 00:00:00 22.3 kg/m2 [facility] s BP Systolic 2023-01-04 00:00:00 130 mm[Hg] [facility] s Body Weight 2023-01-04 00:00:00 2281.6 [oz_av] [facility] s Height 2022-12-13 00:00:00 67 [in_i] [facility] s BMI (Body Mass 2022-12-13 00:00:00 22.1 kg/m2 [facility] s Body Weight 2022-12-13 00:00:00 2259.2 [oz_av] [facility] s BP Diastolic 2022-10-31 00:00:00 60 mm[Hg] [facility] s Height 2022-10-31 00:00:00 67 [in_i] [facility] s BMI (Body Mass 2022-10-31 00:00:00 22.7 kg/m2 [facility] s BP Systolic 2022-10-31 00:00:00 120 mm[Hg] [facility] s Body Weight 2022-10-31 00:00:00 2316.8 [oz_av] [facility] s BP Diastolic 2022-10-12 00:00:00 62 mm[Hg] [facility] s Height 2022-10-12 00:00:00 67 [in_i] [facility] s BMI (Body Mass 2022-10-12 00:00:00 23.2 kg/m2 [facility] s BP Systolic 2022-10-12 00:00:00 118 mm[Hg] [facility] s Body Weight 2022-10-12 00:00:00 2371.2 [oz_av] [facility] s BP Diastolic 2022-08-23 00:00:00 69 mm[Hg] [facility] s Height 2022-08-23 00:00:00 67 [in_i] [facility] s BMI (Body Mass 2022-08-23 00:00:00 22.6 kg/m2 [facility] s BP Systolic 2022-08-23 00:00:00 120 mm[Hg] [facility] s Body Weight 2022-08-23 00:00:00 2310.4 [oz_av] [facility] s BP Diastolic 2022-07-12 00:00:00 70 mm[Hg] [facility] s Height 2022-07-12 00:00:00 67 [in_i] [facility] s BMI (Body Mass 2022-07-12 00:00:00 22.7 kg/m2 [facility] s BP Systolic 2022-07-12 00:00:00 115 mm[Hg] [facility] s Body Weight 2022-07-12 00:00:00 2320 [oz_av] [facility] s BP Diastolic 2022-06-21 00:00:00 60 mm[Hg] [facility] s Height 2022-06-21 00:00:00 67 [in_i] [facility] s BMI (Body Mass 2022-06-21 00:00:00 23.2 kg/m2 [facility] s BP Systolic 2022-06-21 00:00:00 115 mm[Hg] [facility] s Body Weight 2022-06-21 00:00:00 2368 [oz_av] [facility] s BP Diastolic 2022-05-17 00:00:00 68 mm[Hg] [facility] s Height 2022-05-17 00:00:00 67 [in_i] [facility] s BMI (Body Mass 2022-05-17 00:00:00 23.1 kg/m2 [facility] s BP Systolic 2022-05-17 00:00:00 140 mm[Hg] [facility] s Body Weight 2022-05-17 00:00:00 2364.8 [oz_av] [facility] s BP Diastolic 2022-03-21 00:00:00 60 mm[Hg] [facility] s Height 2022-03-21 00:00:00 67 [in_i] [facility] s BP Systolic 2022-03-21 00:00:00 130 mm[Hg] [facility] s BP Diastolic 2022-03-14 00:00:00 48 mm[Hg] [facility] s Height 2022-03-14 00:00:00 67 [in_i] [facility] s BP Systolic 2022-03-14 00:00:00 121 mm[Hg] [facility] s BP Diastolic 2021-12-23 00:00:00 58 mm[Hg] [facility] s Height 2021-12-23 00:00:00 67 [in_i] [facility] s BMI (Body Mass 2021-12-23 00:00:00 25.4 kg/m2 [facility] s BP Systolic 2021-12-23 00:00:00 142 mm[Hg] [facility] s Body Weight 2021-12-23 00:00:00 2592 [oz_av] [facility] s BP Diastolic 2021-11-23 00:00:00 60 mm[Hg] [facility] s Height 2021-11-23 00:00:00 67 [in_i] [facility] s BMI (Body Mass 2021-11-23 00:00:00 25.8 kg/m2 [facility] s BP Systolic 2021-11-23 00:00:00 140 mm[Hg] [facility] s Body Weight 2021-11-23 00:00:00 2640 [oz_av] [facility] s BP Diastolic 2021-07-14 00:00:00 68 mm[Hg] [facility] s Height 2021-07-14 00:00:00 67 [in_i] [facility] s BMI (Body Mass 2021-07-14 00:00:00 26.4 kg/m2 [facility] s BP Systolic 2021-07-14 00:00:00 110 mm[Hg] [facility] s Body Weight 2021-07-14 00:00:00 2697.6 [oz_av] [facility] s BP Diastolic 2021-06-09 00:00:00 74 mm[Hg] [facility] s Height 2021-06-09 00:00:00 67 [in_i] [facility] s BMI (Body Mass 2021-06-09 00:00:00 25.8 kg/m2 [facility] s BP Systolic 2021-06-09 00:00:00 132 mm[Hg] [facility] s Body Weight 2021-06-09 00:00:00 2640 [oz_av] [facility] s BP Diastolic 2021-04-08 00:00:00 68 mm[Hg] [facility] s BP Systolic 2021-04-08 00:00:00 120 mm[Hg] [facility] s Body Weight 2021-04-08 00:00:00 2640 [oz_av] [facility] s BP Diastolic 2020-11-05 00:00:00 70 mm[Hg] [facility] s BP Systolic 2020-11-05 00:00:00 150 mm[Hg] [facility] s BP Diastolic 2020-10-28 00:00:00 62 mm[Hg] [facility] s BP Systolic 2020-10-28 00:00:00 138 mm[Hg] [facility] s Body Weight 2020-10-28 00:00:00 2867.2 [oz_av] [facility] s Systolic blood 2022-09-08 15:34:00 139 mm[Hg] [facility] pressure Diastolic blood 2022-09-08 15:34:00 66 mm[Hg] [facility] pressure Heart rate 2022-09-08 15:34:00 63 /min [facility] Respiratory rate 2022-09-08 15:34:00 17 /min [facility] Oxygen saturation in 2022-09-08 15:34:00 98 /min [facility] Arterial blood by Pulse oximetry Body temperature 2022-09-08 15:30:00 36.33 Blanca [facility] Body weight 2022-09-08 14:21:00 63.504 kg [facility] BMI 2022-09-08 14:21:00 21.93 kg/m2 [facility] Body height 2022-04-20 14:45:00 170.2 cm [facility] Procedures Procedure Date / Time Performing Clinician Source Performed Placement of Stent in 2023-02-16 00:00:00 [facility] US, duplex, arterial, lower 2022-10-12 00:00:00 [facility] extremity [facility] [place] < 1 HOUR 2022-09-08 15:20:00 Suhail Mock spital INJECTION, STEROID, SPINE, 2022-09-08 15:14:00 Suhail Mock [facility] LUMBAR, EPIDURAL, SINGLE POC GLUCOSE 2022-09-08 14:37:00 Suhail Mock spital XR, lumbosacral spine, 2 or 2022-05-17 00:00:00 [facility] 3 view [facility] CT, head, w/o contrast 2022-05-17 00:00:00 [facility] FECAL CALPROTECTIN 2022-04-22 00:00:00 Provider, Not In [facility] PANCREATIC ELASTASE, FECAL 2022-04-21 00:00:00 Provider, Not In [facility] CT, abdomen + pelvis, w/ 2022-03-21 00:00:00 [facility] CT, head, w/o contrast 2021-12-23 00:00:00 [facility] electrocardiogram 2021-12-23 00:00:00 [facility] XR, ribs, unilateral, w/ PA 2021-12-23 00:00:00 [facility] XR, knee, 3 view 2021-12-23 00:00:00 [facility] MRI, lumbar spine, w/o 2021-07-14 00:00:00 [facility] XR, knee, 3 view 2020-10-28 00:00:00 [facility] Eye Surgery [facility] Hemorrhoidectomy [facility] Carpal Tunnel Surgery [facility] Total Hysterectomy [facility] Knee Surgery [facility] Injection of Eye [facility] Plan of Care Planned Activity Planned Date Details Comments Source Future Scheduled Test 2023-05-11 SHINGLES VACCINES (1 [facility] 23:09:13 of 2) [code = SHINGLES VACCINES (1 of 2)] Future Scheduled Test 2023-05-11 65+ PNEUMOCOCCAL [facility] 23:09:13 VACCINE (1 - PCV) [code = 65+ PNEUMOCOCCAL VACCINE (1 - PCV)] Future Scheduled Test 2023-05-11 COVID-19 VACCINE ([address] [place] [address] 23:09:13 Moderna series) [code = COVID-19 VACCINE (3 - Moderna series)] Future Scheduled Test 2023-05-11 INFLUENZA VACCINE [facility] 23:09:13 [code = INFLUENZA VACCINE] Diagnostic Test 2023-04-24 urinalysis complete, [facility] Pending 00:00:00 reflex culture [code [facility] urinalysis complete, reflex culture] Diagnostic Test 2023-04-24 TSH + T4, serum [code [facility] Pending 00:00:00 = TSH + T4, serum] Hospital Clinics Diagnostic Test 2023-04-24 CMP, serum or plasma [facility] Pending 00:00:00 [code = CMP, serum or Hospit al Clinics plasma] Diagnostic Test 2023-04-24 CBC w/ diff [code = Sween y [facility] Pending 00:00:00 CBC w/ diff] Hospital [facility] s Diagnostic Test 2023-04-24 vitamin D, [place] [facility] Pending 00:00:00 25-hydroxy, total, [facility] serum [code = vitamin D, 25-hydroxy, total, serum] Diagnostic Test 2023-04-24 magnesium, serum or Critical access hospital Pending 00:00:00 plasma [code = [facility] ics magnesium, serum or plasma] Diagnostic Test 2023-04-24 HbA1c (hemoglobin [facility] Pending 00:00:00 A1c), blood [code = [facility] HbA1c (hemoglobin A1c), blood] Diagnostic Test 2023-04-24 microalbumin, urine Critical access hospital Pending 00:00:00 [code = microalbumin, [facility] urine] Future Scheduled Test 2023-01-13 SHINGLES VACCINES (1 [facility] 10:34:38 of 2) [code = SHINGLES VACCINES (1 of 2)] Future Scheduled Test 2023-01-13 65+ PNEUMOCOCCAL [facility] 10:34:38 VACCINE (1 - PCV) [code = 65+ PNEUMOCOCCAL VACCINE (1 - PCV)] Future Scheduled Test 2023-01-13 COVID-19 VACCINE ([facility] 10:[facility]38 Booster for Moderna series) [code = COVID-19 VACCINE (3 - Booster for Moderna series)] Future Scheduled Test 2023-01-13 INFLUENZA VACCINE [facility] 10:34:38 [code = INFLUENZA VACCINE] Future Appointment 2023-06-25 Daniela Jeronimo, Garfield NReid lubin [facility] 00:00:00 Stanford Mariscal B; [facility] [address], [place] [address] Encounters Start End Encounter Admission Attending Care Care Encounter Source Date/Time Date/Time Type Type Clinicians Facility Department ID 2023-04-24 2023-04-24 Daniela Vera [facility] [place] Stefan 00:00:00 00:00:00 Jason Jeronimo MD: [address] [facility] STEFAN Mariscal Hospit a [address], COMM[facility] [address], [facility] [place], [place], [address] ALLAN , Ph. 2023-03-16 2023-03-16 Daniela Vera [facility] [place] 608 [place] 00:00:00 00:00:00 Jason Jeronimo MD: [address] [facility], GASTONIA Hospit a [address], COMMUNITY l [address], HOSPITAL [place], [place], [address] ALLAN , Ph. 2023-02-23 2023-02-23 Daniela Vera [facility] [place] 518 [place] 00:00:00 00:00:00 Jason Jeronimo MD: [address] [facility] Hospit a [address], COMMUNITY l [address], H[facility] [place], [address] ALLAN , Ph. 2023-02-20 2023-02-20 Outpatient KEFFER_A [facility] [id number] [place] 00:00:00 00:00:00 518 [facility] Clinics 2023-02-20 2023-02-20 Outpatient KEFFER_[facility] [id number] 0230 [place] 00:00:00 00:00:00 608 [facility] Clinics 2023-02-20 2023-02-20 Outpatient ALLAN_A [facility] [id number] [place] 00:00:00 00:00:00 717 Commun i ty [facility]osp[facility] Clinics 2023-01-30 2023-01-30 Daniela Vera [facility] [place] 424 [place] 00:00:00 00:00:00 Jason Jeronimo MD: [address] [facility] Hospit a [address], COMMUNITY l [address], [place], [place], [address] ALLAN , Ph. 2023-01-04 2023-01-04 Daniela Vera [facility] [place] 329 [place] 00:00:00 00:00:00 Jason Jeronimo MD: [address] [facility] [address], COMM[facility]ITY l [address], [facility] [place], [address] ALLAN , Ph. 2022-12-13 2022-12-13 Daniela Vera [facility] [place] 307 [place] 00:00:00 00:00:00 Jason Jeronimo MD: [address] [facility] SERGOTabitha Hospit a [address], COMMUNITY l [address], HOSP[facility] [place], [address] ALLAN , Ph. 2022-10-31 2022-10-31 Daniela Vera [facility] [place] 123 [place] 00:00:00 00:00:00 Jason Jeronimo MD: [address] [facility] a [address], COMMUNITY l [address], H[facility] [place], [place], [address] ALLAN , Ph. 2022-10-13 2022-10-13 Outpatient [facility] [id number] [place] 00:00:00 00:00:00 105 [facility] i ty [facility] Clinics 2022-10-13 2022-10-13 Outpatient [facility] [id number] [place] 00:00:00 00:00:00 123 Commun i ty [facility]osp[facility] l Clinics 2022-10-13 2022-10-13 Outpatient [facility] [id number] 0230 [place] 00:00:00 00:00:00 307 Commun i ty [facility]ospita [facility] Clinics 2022-10-13 2022-10-13 Outpatient [facility] [id number] 0230 [place] 00:00:00 00:00:00 329 Commun i ty [facility] Clinics 2022-10-13 2022-10-13 Outpatient [facility] [id number] 0230 [place] 00:00:00 00:00:00 424 Commun i ty [facility]ita l Clinics 2022-10-12 2022-10-12 Outpatient PENNY [facility] [id number] 0230 [place] 00:00:00 00:00:00 104 Commun i ty Hospita l Clinics 2022-10-12 2022-10-12 Daniela Vera [facility] [place] 104 [place] 00:00:00 00:00:00 Jason Jeronimo MD: [address] [facility] ty [facility] Hospit a [address], [facility] l [address], HOSPITAL Clinic [place], [place], [address] ALLAN , Ph. 2022-09-08 2022-09-08 [facility], 1.2.840.1 [id number] Methodi 06:52:00 10:39:00 Encounter Irfan 21746.1.[address] 3.430.2.7 Hospit a .3.366122 l .8 2022-09-08 2022-09-08 [facility], 1.2.840.1 [id number] Methodi 06:52:00 10:39:00 Encounter Irfan [address]65.1.[address] 3.430.2.7 Hospit a .3.450740 l .8 2022-09-08 2022-09-08 Surgery [facility], 1.2.840.1 [id number] Methodi 08:33:00 08:47:[address] 3.430.2.7 Hospit a .3.320890 l .8 2022-09-08 2022-09-08 Surgery [facility], 1.2.840.1 [id number] Methodi 08:33:00 08:47:[address] 3.430.2.7 Hospit a .3.700370 l .8 2022-09-08 2022-09-08 Travel 1.2.840.1 1.2.717.037 0445 [id number] Methodi 00:00:00 00:00:[address] 3.430.2.7 0.2.7.3.698 Ho spita .3.228103 084.8 l .8 2022-09-08 2022-09-08 Travel 1.2.840.1 1.2.695.789 6091 [id number] Methodi 00:00:00 00:00:[address] 3.430.2.7 0.2.7.3.698 Ho spita .3.350043 084.8 l .8 2022-08-23 2022-08-23 Outpatient KEFERNY_A [facility] [id number] [place] 00:00:00 00:00:00 115 Commun i ty Hosp[facility] 2022-08-23 2022-08-23 Daniela Vera [facility] 115 [place] 00:00:00 00:00:00 Jason Jeronimo MD: [address] [facility] Hospit a [address], COMMUNITY l [address], [facility], [address] ALLAN , Ph. 2022-07-12 2022-07-12 Outpatient ALLAN_A [facility] [id number] [place] 00:00:00 00:00:00 004 Commun i ty Hospita [facility] 2022-07-12 2022-07-12 Daniela Vera [facility] 004 [place] 00:00:00 00:00:00 Jason Jeronimo MD: [address] [facility] Hospit a [address], COMMUNITY l [address], [facility], [address] ALLAN , Ph. 2022-05-18 2022-07-06 Telephone Ocampo, 1.2.840.1 [id number] Methodi 11:15:00 16:29:31 Consult Armin 01110.1.1 752 Luis 3.430.2.7 Hospit a .3.586282 l .8 2022-06-21 2022-06-21 Outpatient ALLAN_Jose [facility] [id number] [place] 00:00:00 00:00:00 913 Commun i ty Hospita [facility] 2022-06-21 2022-06-21 Daniela Vera [facility] [place] 913 [place] 00:00:00 00:00:00 Allan [facility] MD: [address] [facility] Hospit a [address], COMMUNITY l [address], HOSPITAL [facility], [address] ALLAN , Ph. 2022-06-21 2022-06-21 Outpatient Daniela Jeronimo [facility] [id number] 00:00:00 00:00:00 Jody [id number] 2022-05-25 2022-05-25 Outpatient ALLAN_Jose [facility] [id number] [place] 00:00:00 00:00:00 817 Commun i ty Hospita [facility] 2022-05-25 2022-05-25 Daniela Vera [facility] [place] 817 [place] 00:00:00 00:00:00 Jason Jeronimo [facility] : [address] [facility] Hospit a [address], COMMUNITY l [address], [facility], [address] ALLAN , Ph. 2022-05-25 2022-05-25 Outpatient Daniela Jeronimo [facility] [id number] 00:00:00 00:00:00 Jody [id number] 2022-05-23 2022-05-23 Telephone Jigar, 1.2.840.1 [id number] Methodi 00:00:00 00:00:00 Rosa Diaz 45329.1.1 166 s t 3.430.2.7 Hospit a .3.863674 l .8 2022-05-23 2022-05-23 Telephone Jigar, 1.2.840.1 [id number] Methodi 00:00:00 00:00:00 Rosa Diaz 06183.1.1 166 s t 3.430.2.7 Hospit a .3.020337 l .8 2022-05-17 2022-05-17 Outpatient PENNY [facility] [id number] [place] 00:00:00 00:00:00 809 Commun i ty Hospita [facility] 2022-05-17 2022-05-17 Daniela Vera [facility] [place] 809 [place] 00:00:00 00:00:00 Jason Jeronimo [facility] radha MD: [address] [facility] Hosp a [address], [facility] [address], HOSPITAL [facility], [place], [address] ALLAN , Ph. 2022-05-17 2022-05-17 Outpatient Daniela Jeronimo [facility] [id number] 00:00:00 00:00:00 Jody [id number] 2022-05-09 2022-05-09 Orders Provider, 1.2.840.1 [id number] [id number] Methodi 00:00:00 00:00:00 Only Not In 12599.1.[address] System 3.430.2.7 Hospit a .3.872229 l .8 2022-04-29 2022-04-29 Telephone Zak, 1.2.840.1 [id number] [id number] Methodi 00:00:00 00:00:[address] 3.430.2.7 Hospit a .3.942678 l .8 2022-04-29 2022-04-29 Telephone Ocampo, 1.2.840.1 [id number] 2099 [id number] Methodi 00:00:00 00:00:[address] Luis 3.430.2.7 Hospit a .3.730639 l .8 2022-04-20 2022-04-20 Office Ocampo, 1.2.840.1 [id number] 9504 Methodi 09:45:00 10:25:29 Visit Fatumaetankarma 48715.1.[address] Luis 3.430.2.7 Hospit a .3.233319 l .8 2022-04-20 2022-04-20 Travel 1.2.840.1 1.2.648.671 7805 [id number] Methodi 00:00:00 00:00:[address] 3.430.2.7 0.2.7.3.698 Ho spita .3.399668 084.8 l .8 2022-03-21 2022-03-21 Outpatient ALLAN_Jose [facility] [id number] [place] 06:18:00 06:18:00 613 Commun i ty Hospita l Clinics 2022-03-21 2022-03-21 Daniela Vera [facility] [place] 613 [place] 00:00:00 00:00:00 Jason Jeronimo MD: [address] [facility] Hospit a [address], COMMUNITY [address], HOSPITAL [facility], [address] ALLAN , Ph. 2022-03-21 2022-03-21 Outpatient Daniela Jeronimo [facility] [id number] 00:00:00 00:00:00 Jody [id number] 2022-03-14 2022-03-14 Outpatient ALLAN_Jose [facility] [id number] [place] 01:58:00 01:58:00 606 Commun i ty Hospita l Clinics 2022-03-14 2022-03-14 Daniela Vera [facility] [place] 60 [place] 00:00:00 00:00:00 Jason Jeronimo MD: [address] [facility] [place] Hospit a [address], COMMUNITY l [address], HOSPITAL [facility], [address] ALLAN , Ph. 2022-03-14 2022-03-14 Outpatient Daniela Jeronimo [facility] [id number] 00:00:00 00:00:00 Jody [id number] 2021-12-23 2021-12-23 Outpatient KEFFER_A [facility] [id number] [place] 04:45:00 04:45:00 317 Commun i ty Hospita l [facility] 2021-12-23 2021-12-23 Daniela Vera [facility] 317 [place] 00:00:00 00:00:00 Jason Jeronimo MD: [address] [facility] Hospit a [address], COMMUNITY l [address], HOSPITAL [facility], [address] ALLAN , Ph. 2021-12-23 2021-12-23 Outpatient Daniela Jeronimo [facility] [id number] 00:00:00 00:00:00 Jody [id number] 2021-11-25 2021-11-25 Outpatient KEFFER_A [facility] [id number] [place] 02:36:00 02:36:00 217 Commun i ty Hospita l Clinics 2021-11-23 2021-11-23 Outpatient KEFFER_A [facility] [id number] [place] 05:53:00 05:53:00 215 Commun i ty Hospita l Clinics 2021-11-23 2021-11-23 Daniela Vera [facility] 215 [place] 00:00:00 00:00:00 Jason Jeronimo MD: [address] [facility] Hospit a [address], COMMUNITY l [address], [facility], [address] ALLAN , Ph. 2021-11-23 2021-11-23 Outpatient Daniela Jeronimo [facility] [id number] 00:00:00 00:00:00 Jody [id number] 2021-09-09 2021-09-09 Outpatient KARRIE [facility] [id number] [place] 00:00:00 00:00:00 IRFAN [address] 2021-08-12 2021-08-12 Outpatient KARRIE, [facility] [id number] [place] 00:00:00 00:00:[address] 2021-07-14 2021-07-14 Outpatient ALLAN_A [facility] [id number] [place] 05:58:00 05:58:00 006 Commun i ty Hospita l Clinics 2021-07-14 2021-07-14 Daniela Vera [facility] [place] 00:00:00 00:00:00 Jason Jeronimo MD: [address] [facility] Hospit a [address], [facility] l [address], HOSPITAL [facility], [address] ALLAN , Ph. 2021-07-14 2021-07-14 Outpatient Daniela Jeronimo [facility] [id number] 00:00:00 00:00:00 Jody [id number] 2021-06-09 2021-06-09 Outpatient KEFERNY_A [facility] [id number] [place] 01:11:00 01:11:00 901 Commun i ty Hospita l Clinics 2021-06-09 2021-06-09 Outpatient HECTORFFER_A [facility] [id number] [place] 01:11:00 01:11:00 927 Commun i ty Hospita l Clinics 2021-06-09 2021-06-09 Edwin [facility] [place] 00:00:00 00:00:00 Beto [facility] MSN, PRISON TEACHER, [facility] GUM SCORING MACHINE OPERATOR-C: [address] [place] [facility] [place], [facility], Clinic s [address], [facility] [address], BetoStefan rubio, [place] MSN, [facility] [address] , Ph. 2021-06-09 2021-06-09 Outpatient Beto [facility] [id number] 00:00:00 00:00:00 Edwin [id number] 8720-07-01 2021-04-08 Outpatient ALLAN_Jose [facility] [id number] [place] 03:35:00 03:35:00 701 Commun i ty Hospita l Clinics 2021-04-08 2021-04-08 Daniela Vera [facility] [place] 701 [place] 00:00:00 00:00:00 Allan [facility] Sylvia garcia MD: [address] [facility] [address], [facility] [address], HOSPITAL Clinic [place], [place], [address] ALLAN , Ph. 2021-04-08 2021-04-08 Outpatient Daniela Jeronimo [facility] [id number] 00:00:00 00:00:00 Jody [id number] 2021-02-01 2021-02-01 Outpatient ALLAN_Jose [facility] [id number] [place] 04:06:00 04:06:00 426 Commun i ty Hospita l Clinics 2021-02-01 2021-02-01 Outpatient Daniela Jeronimo [facility] [id number] 00:00:00 00:00:00 Jody [id number] 2021-02-01 2021-02-01 Daniela Vera [facility] [place] 426 [place] 00:00:00 00:00:00 Allan [facility] Sylvia garcia MD: [address] [facility] [place] Hospit a [address], COMMUNITY l [address], HOSPITAL [place], [place], [address] ALLAN , Ph. 2020-11-05 2020-11-05 Outpatient KEFFER_Jose [facility] [id number] [place] 03:50:00 03:50:00 128 Commun i ty Hospita l Clinics 2020-11-05 2020-11-05 Outpatient Allan Daniela [facility] [id number] 00:00:00 00:00:00 Jody [id number] 2020-11-05 2020-11-05 Daniela Vera [facility] [place] 128 [place] 00:00:00 00:00:00 Jason Jeronimo MD: [address] [facility] Hospit a [address], COMMUNITY l [address], HOSPITAL [place], [place], [address] ALLAN , Ph. 2020-10-28 2020-10-28 Outpatient KEFFER_Jose [facility] [id number] [place] 05:01:00 05:01:00 120 Commun i ty Hospita l Clinics 2020-10-28 2020-10-28 Outpatient Allan Daniela [facility] [id number] 00:00:00 00:00:00 Jody [id number] 2020-10-28 2020-10-28 Daniela Vera [facility] [place] 120 [place] 00:00:00 00:00:00 Jason Jeronimo MD: [address] [facility] Hospit a [address], COMMUNITY l [address], [place], [place], [address] ALLAN , Ph. 2020-10-27 2020-10-27 Outpatient KEFFER_A [facility] [id number] [place] 09:11:00 09:11:00 119 Commun i ty Hospita l Clinics 2020-10-06 2020-10-06 Outpatient KEFFER_A [facility] [id number] [place] 05:19:00 05:19:00 229 Commun i ty Hospita l Clinics 2020-10-06 2020-10-06 Daniela Vera [facility] [place] 229 [place] 00:00:00 00:00:00 Jason Jeronimo MD: [address] [facility] ty [facility] Hospit a [address], COMMUNITY l [address], HOSPITAL Clinic [place], [address] ALLAN , Ph. 2020-08-26 2020-08-26 Outpatient keffer_a [facility] 2019 [place] 02:26:00 02:26:00 [facility] 2018-04-03 2018-04-03 Outpatient keffer_a [facility] 2019 [place] 03:30:00 03:30:00 0608 [facility] Results Test Description Test Time Test Comments Results Result Comments Source POC glucose 2022-09-08 14:54:00 Test Item Value Reference Range Interpretation Comme nts POC glucose (test code = 88 mg/dL 65-99 Ope rator Name: Charles Gleason [id number]) ID: [id number] [facility] [id number] 14:54:00 Test Item Value Reference Range Interpretation Comments POC glucose (test 88 mg/dL 65-99 Communication Assistant N joao: Charles code = 78158-1) Victorino ID: [id number] [facility]
[2023-05-22] MEDS ORDERED: ASPIRIN 81 MG CHEWABLE TABLET ONE (13:05)
[2023-05-22 13:18] LABS: Protime INR 1.09
[2023-05-22 13:20] LABS: Absolute Lymphocytes (CBC) 2.1 K/uL (0.7-4.9); Hematocrit 39.7 % (36.0-45.0); Lymphocytes % 26.2 % (15.3-44.8); MCV 87.6 fL (80-100); MPV 7.2 fL (7.6-11.3); Platelets 338 thou/uL (152-406); RBC Red Blood Cell Count 4.53 M/uL (3.86-4.86)
[2023-05-22 13:41] LABS: Albumin 3.3 g/dL (3.4-5.0); Bilirubin Direct 0.2 mg/dL (0-0.2); Bilirubin Indirect, Calculated 0.3 mg/dL (0.2-0.8); Bilirubin Total 0.5 mg/dL (0.2-1.0); Magnesium 1.9 mg/dL (1.6-2.4); Potassium 3.7 mEq/L (3.5-5.1); Protein, Total 7.2 g/dL (6.4-8.2); SARS-CoV-2 Antigen Rapid Res Negative (Negative); Troponin High Sensitivity 20.4 pg/mL (<58.9)
--- NOTE | 2023-05-22 13:51 | RAD REPORT ---
EXAM DESCRIPTION: RAD - Chest Single View - 05/22/2023 1:45 pm CLINICAL HISTORY: CHEST PAIN Chest pain. COMPARISON: <Comparisons> FINDINGS: Portable technique limits examination quality. The lungs are emphysematous but grossly clear. The heart is normal in size. No displaced fractures. IMPRESSION: No acute intrathoracic process suspected.
[2023-05-22 13:58] LABS: Specific Gravity 1.013 (1.005-1.030); Urine Bacteria <20 /HPF (<20); Urine Bilirubin NEGATIVE (Negative); Urine Blood Negative (Negative); Urine Clarity Extremely Turbid (Clear); Urine Color Light-Yellow (Yellow); Urine Glucose NEGATIVE (Negative); Urine Mucus Slight /HPF (None Seen); Urine Protein NEGATIVE (Negative); Urine Urobilinogen Normal (Normal); Urine WBC Clump Rare /HPF (None Seen)
[2023-05-22] MEDS ORDERED: FUROSEMIDE 20 MG/ 2ML VIAL ONE (14:28)
[2023-05-22] MEDS ORDERED: CEFTRIAXONE 1000 MG/VIAL ONE (14:32)
--- NOTE | 2023-05-22 16:10 | EDPHYS ---
Physician Documentation [facility] Name: Lilian Hernández Age: 83 yrs Sex: Female : 1940 Arrival Date: 05/22/2023 Time: 12:32 Bed 3 Private MD: ED Physician Jamir Guthrie HPI: 05/22 12:49 This 83 yrs old Female presents to ER via Unassigned with complaints of chest pain, snw sob, weakness. 12:49 The patient or guardian reports chest pain that is located primarily in the anterior snw chest wall. Onset: gradually, 4 day(s) ago, and became persistent. The pain does not radiate. Associated signs and symptoms: Pertinent positives: cough, shortness of breath, malaise, chills, confusion, anorexia. The chest pain is described as aching, a pressure. Duration: The patient or guardian reports a single episode. Severity of pain: At its worst the pain was moderate. It is unknown whether or not the patient has had similar symptoms in the past. Stents x [address] Holt recently. Historical: - Allergies: 12:48 Iodine; me1 - PMHx: 12:48 Diabetes mellitus; Hypertensive disorder; me1 - PSHx: 12:48 cardiac stents; mastectomy R; Cholecystectomy; back sx; knee sx; Total abdominal me1 hysterectomy; - Immunization history:: Adult Immunizations unknown. - Social history:: Smoking status: Patient denies any tobacco usage or history of. ROS: 12:48 Eyes: Negative for injury, pain, redness, and discharge, ENT: Negative for injury, snw pain, and discharge, Neck: Negative for injury, pain, and swelling. 12:48 Back: Negative for injury and pain, : Negative for injury, bleeding, discharge, and swelling, MS/Extremity: Negative for injury and deformity, Skin: Negative for injury, rash, and discoloration. 12:48 Constitutional: Positive for body aches, fatigue, malaise, poor PO intake, chills. 12:48 Cardiovascular: Positive for tightness. 12:48 Respiratory: Positive for cough, shortness of breath, on exertion. 12:48 Abdomen/GI: Positive for anorexia. 12:48 Neuro: Positive for weakness, confusion, sleeping more than normal. 12:48 Psych: Positive for anxiety. Exam: 12:47 Head/Face: Normocephalic, atraumatic. Eyes: Pupils equal round and reactive to light, snw extra-ocular motions intact. Lids and lashes normal. Conjunctiva and sclera are non-icteric and not injected. Cornea within normal limits. Periorbital areas with no swelling, redness, or edema. ENT: Nares patent. No nasal discharge, no septal abnormalities noted. Tympanic membranes are normal and external auditory canals are clear. Oropharynx with no redness, swelling, or masses, exudates, or evidence of obstruction, uvula midline. Mucous membranes moist. Neck: Trachea midline, no thyromegaly or masses palpated, and no cervical lymphadenopathy. Supple, full range of motion without nuchal rigidity, or vertebral point tenderness. No Meningismus. Chest/axilla: Normal chest wall appearance and motion. Nontender with no deformity. No lesions are appreciated. Cardiovascular: Regular rate and rhythm with a normal S1 and S2. No gallops, murmurs, or rubs. Normal PMI, no JVD. No pulse deficits. Respiratory: Lungs have equal breath sounds bilaterally, clear to auscultation and percussion. No rales, rhonchi or wheezes noted. No increased work of breathing, no retractions or nasal flaring. Abdomen/GI: Soft, non-tender, with normal bowel sounds. No distension or tympany. No guarding or rebound. No evidence of tenderness throughout. Back: No spinal tenderness. No costovertebral tenderness. Full range of motion. Skin: Warm, dry with normal turgor. Normal color with no rashes, no lesions, and no evidence of cellulitis. MS/ Extremity: Pulses equal, no cyanosis. Neurovascular intact. Full, normal range of motion. Neuro: Awake and alert, GCS 15, oriented to person, place, time, and situation. Cranial nerves II-XII grossly intact. Motor strength 5/5 in all extremities. Sensory grossly intact. Cerebellar exam normal. Normal gait. 12:47 Constitutional: The patient appears alert, anxious, frail. 12:47 Psych: Behavior/mood is pleasant, cooperative, anxious, Oriented to person, place, time. Vital Signs: 12:54 BP 123 / 89; Pulse 75; Resp 18; Pulse Ox 97% on R/A; ph 13:00 Temp 98.5(O); Weight 62.14 kg; Height 5 ft. 7 in. ; aa5 13:12 BP 193 / 90; Pulse 64; Resp 18; Pulse Ox 98% on R/A; ld1 14:02 BP 166 / 76; Pulse 69; Resp 18; Pulse Ox 97% on R/A; ld1 15:01 BP 175 / 68; Pulse 59; Resp 18; Pulse Ox 100% on R/A; ld1 15:33 BP 182 / 68; Pulse 58; Resp 18; Pulse Ox 100% on R/A; ld1 16:26 BP 176 / 73; Pulse 58; Resp 18; Pulse Ox 98% on R/A; ld1 18:54 BP 169 / 71; Pulse 61; Resp 18; Pulse Ox 99% on R/A; ld1 13:00 Body Mass Index 21.46 (62.14 kg, 170.18 cm) aa5 Lionel Coma Score: 12:47 Eye Response: spontaneous(4). Motor Response: obeys commands(6). Verbal Response: snw oriented(5). Total: 15. MDM: 12:46 Patient medically screened. snw 16:09 Differential diagnosis: abnormal EKG, acute myocardial infarction, anxiety, coronary snw artery disease congestive heart failure esophagitis, gastroesophageal reflux disease (GERD), stable angina, unstable angina, Covid. The patient was given aspirin in the Emergency Department. ZAIDA Risk Score: 1 - patient's age is greater or equal to 65 years, 1- Known CAD, 1 - ASA use in past 7 days, 1 - Recent [<24hrs] Severe Angina, 1 - ST deviation >0.5mm, TOTAL SCORE = 5. Data reviewed: vital signs, nurses notes, lab test result(s), EKG, radiologic studies. Management of patient was discussed with the following: Hospitalist: Will admit to [facility] for CP with EKG changes, UTI. Counseling: I had a detailed discussion with the patient and/or guardian regarding: the historical points, exam findings, and any diagnostic results supporting the discharge/admit diagnosis, the presence of at least one elevated blood pressure reading (>120/80) during this emergency department visit, lab results, radiology results, the need for further work-up and treatment in the hospital. 05/22 12:46 Order name: SARS RAPID; Complete Time: 13:53 snw 05/22 12:46 Order name: Basic Metabolic Panel; Complete Time: 13:53 snw 05/22 12:46 Order name: CBC with Diff; Complete Time: 13:26 snw 05/22 12:46 Order name: LFT's; Complete Time: 13:53 snw 05/22 12:46 Order name: Magnesium; Complete Time: 13:53 snw 05/22 12:46 Order name: NT PRO-BNP; Complete Time: 13:53 snw 05/22 12:46 Order name: PT-INR; Complete Time: 13:26 snw 05/22 12:46 Order name: Troponin HS; Complete Time: 13:53 snw 05/22 12:52 Order name: Urine W/Microscopic (UAM); Complete Time: 14:13 snw 05/22 12:52 Order name: Urine Culture snw 05/22 15:18 Order name: Troponin High Sensitivity; Complete Time: 16:42 snw 05/22 17:26 Order name: Magnesium; Complete Time: 18:13 EDMS 05/22 17:26 Order name: Phosphorus; Complete Time: 18:13 EDMS 05/22 17:26 Order name: T4 Free; Complete Time: 18:13 EDMS 05/22 17:26 Order name: Thyroid Stimulating Hormone; Complete Time: 18:13 EDMS 05/22 17:26 Order name: Urinalysis w/ reflexes EDMS 05/22 17:26 Order name: Basic Metabolic Panel EDMS 05/22 17:26 Order name: Basic Metabolic Panel EDMS 05/22 17:26 Order name: CBC with Automated Diff EDMS 05/22 17:26 Order name: CBC with Automated Diff EDMS 05/22 17:26 Order name: Lipid Profile EDMS 05/22 17:26 Order name: Lipid Profile EDMS 05/22 17:28 Order name: Troponin High Sensitivity EDMS 05/22 17:28 Order name: Troponin High Sensitivity EDMS 05/22 17:28 Order name: Troponin High Sensitivity EDMS 05/22 17:29 Order name: Hemoglobin A1c EDMS 05/22 12:46 Order name: XRAY Chest (1 view); Complete Time: 13:53 snw 05/22 12:46 Order name: EKG; Complete Time: 12:47 snw 05/22 15:18 Order name: EKG; Complete Time: 15:18 snw 05/22 16:46 Order name: Diet Heart Healthy; Complete Time: 17:33 snw 05/22 17:23 Order name: CONS Physician Consult EDHI 05/22 17:26 Order name: Heart Healthy EDHI 05/22 12:46 Order name: Cardiac monitoring; Complete Time: 12:59 snw 05/22 12:46 Order name: EKG - Nurse/Tech; Complete Time: 12:59 snw 05/22 12:46 Order name: IV Saline Lock; Complete Time: 13:12 snw 05/22 12:46 Order name: Labs collected and sent; Complete Time: 13:12 snw 05/22 12:46 Order name: O2 Per Protocol; Complete Time: 12:54 snw 05/22 12:46 Order name: O2 Sat Monitoring; Complete Time: 12:54 snw 05/22 15:18 Order name: EKG - Nurse/Tech; Complete Time: 16:02 snw EC:10 Rate is 65 beats/min. Rhythm is regular. QRS Marquez is Normal. ND interval is normal. QRS snw interval is normal. QT interval is normal. No Q waves. Clinical impression: Normal ECG and NSR w/ Non-specific ST/T Changes. Administered Medications: 12:59 Drug: Aspirin PO Chewable Tablet 324 mg Route: PO; ld1 14:22 Drug: Rocephin IV 1 grams Route: IV; Rate: calculated rate; Site: left antecubital; ld1 14:27 Drug: Furosemide IVP 20 mg Route: IVP; Site: left antecubital; ld1 Disposition Summary: 05/22/23 16:09 Hospitalization Ordered Hospitalization Status: Inpatient Admission snw Provider: Pranav Salcedo Location: Telemetry/MedSurg (Inpatient) snw Condition: Stable snw Problem: new snw Symptoms: are unchanged snw Bed/Room Type: Standard snw Room Assignment: 206(05/22/23 18:03) bd Diagnosis - UTI/ Urinary tract infection, site not specified snw - Chest pain, unspecified - with EKG changes (05/22/23 16:09) snw Forms: - Medication Reconciliation Form snw - SBAR form snw - Leadership Thank You Letter snw Signatures: Dispatcher [employer] Ramila Houser bd Veronica Hollis, BILINGUAL CALL CENTER REPRESENTATIVE-C BILINGUAL CALL CENTER REPRESENTATIVE-Csnw Anastasia Dobbs, RN RN Dana Bright RN RN 1 Rosa Rodriguez RN RN me1 Corrections: (The following items were deleted from the chart) 12:50 12:48 Allergies: No Known Allergies; la1 [facility] 16:09 16:09 Chest pain, unspecified snw snw 18:03 16:09 snw bd
--- NOTE | 2023-05-22 16:10 | ER ---
Nurse's Notes [facility] Name: Lilian Hernández Age: 83 yrs Sex: Female : 1940 Arrival Date: 05/22/2023 Time: 12:32 Bed 3 Private MD: Diagnosis: Chest pain, unspecified-with EKG changes ;UTI/ Urinary tract infection, site not specified Presentation: 05/22 12:47 Acuity: ROXANE 2 me1 12:54 Chief complaint: Patient states: C/O feeling shaky, confused, generalized weakness, ph fatigue, chest tightness, mild cough and decreased appetite. Coronavirus screen: Vaccine status: Patient reports receiving the 2nd dose of the covid vaccine. Ebola Screen: No symptoms or risks identified at this time. Initial Sepsis Screen: Does the patient meet any 2 criteria? No. Patient's initial sepsis screen is negative. Does the patient have a suspected source of infection? No. Patient's initial sepsis screen is negative. Risk Assessment: Do you want to hurt yourself or someone else? Patient reports no desire to harm self or others. Onset of symptoms was May 22, 2023. 12:54 Method Of Arrival: Wheelchair ph Triage Assessment: 16:09 General: Appears in no apparent distress. comfortable, Behavior is calm, cooperative, ld1 appropriate for age. Pain: Denies pain. EENT: No signs and/or symptoms were reported regarding the EENT system. Neuro: Level of Consciousness is awake, alert, obeys commands, Oriented to person, place, time, situation. Cardiovascular: Capillary refill < 3 seconds Patient's skin is warm and dry. Respiratory: Airway is patent Respiratory effort is even, unlabored. GI: Abdomen is round non-distended. : No signs and/or symptoms were reported regarding the genitourinary system. Derm: No signs and/or symptoms reported regarding the dermatologic system. Musculoskeletal: No signs and/or symptoms reported regarding the musculoskeletal system. Historical: - Allergies: 12:48 Iodine; me1 - PMHx: 12:48 Diabetes mellitus; Hypertensive disorder; me1 - PSHx: 12:48 cardiac stents; mastectomy R; Cholecystectomy; back sx; knee sx; Total abdominal me1 hysterectomy; - Immunization history:: Adult Immunizations unknown. - Social history:: Smoking status: Patient denies any tobacco usage or history of. Screenin:12 [facility] ED Fall Risk Assessment (Adult) History of falling in the last 3 months, ld1 including since admission No falls in past 3 months (0 pts). Abuse screen: Denies threats or abuse. Denies injuries from another. Nutritional screening: No deficits noted. Tuberculosis screening: No symptoms or risk factors identified. Assessment: 13:12 Reassessment: See triage assessment. ld1 14:28 Reassessment: [phone] - cristel - son. ld1 18:54 Reassessment: Patient appears in no apparent distress at this time. No changes from ld1 previously documented assessment. Patient and/or family updated on plan of care and expected duration. Pain level reassessed. Patient is alert, oriented x 3, equal unlabored respirations, skin warm/dry/pink. Vital Signs: 12:54 BP 123 / 89; Pulse 75; Resp 18; Pulse Ox 97% on R/A; ph 13:00 Temp 98.5(O); Weight 62.14 kg; Height 5 ft. 7 in. ; aa5 13:12 BP 193 / 90; Pulse 64; Resp 18; Pulse Ox 98% on R/A; ld1 14:02 BP 166 / 76; Pulse 69; Resp 18; Pulse Ox 97% on R/A; ld1 15:01 BP 175 / 68; Pulse 59; Resp 18; Pulse Ox 100% on R/A; ld1 15:33 BP 182 / 68; Pulse 58; Resp 18; Pulse Ox 100% on R/A; ld1 16:26 BP 176 / 73; Pulse 58; Resp 18; Pulse Ox 98% on R/A; ld1 18:54 BP 169 / 71; Pulse 61; Resp 18; Pulse Ox 99% on R/A; ld1 13:00 Body Mass Index 21.46 (62.14 kg, 170.18 cm) aa5 [place] Coma Score: 12:47 Eye Response: spontaneous(4). Motor Response: obeys commands(6). Verbal Response: snw oriented(5). Total: 15. ED Course: 12:44 Patient arrived in ED. ld1 12:45 Veronica Hollis FNP-C [facility]. snw 12:45 Jamir Guthrie MD is Attending Physician. snw 12:46 Arm band placed on. mb9 12:48 Triage completed. me1 12:53 Dana Bright, RN is Primary Nurse. ld1 13:12 Patient has correct armband on for positive identification. Placed in gown. Bed in low ld1 position. Call light in reach. Side rails up X2. dish cloth inspector on. Pulse ox on. NIBP on. Door closed. Noise minimized. Warm blanket given. 13:12 SARS RAPID Sent. ld1 13:12 Inserted saline lock: 20 gauge in left antecubital area, using aseptic technique. Blood ld1 collected. 13:12 No provider procedures requiring assistance completed. ld1 13:43 X-ray completed. Portable x-ray completed in exam room. Patient tolerated procedure mh1 well. 13:46 XRAY Chest (1 view) In Process Unspecified. EDMS 14:27 Urine Culture Sent. ld1 15:01 Cleaned of incontinence. Purewick in place. ld1 16:08 Pranav Salcedo MD is Hospitalizing Provider. snw 18:55 Patient admitted, IV remains in place. ld1 Administered Medications: 12:59 Drug: Aspirin PO Chewable Tablet 324 mg Route: PO; ld1 14:22 Drug: Rocephin IV 1 grams Route: IV; Rate: calculated rate; Site: left antecubital; ld1 14:27 Drug: Furosemide IVP 20 mg Route: IVP; Site: left antecubital; ld1 Medication: 18:55 VIS not applicable for this client. ld1 Outcome: 16:09 Decision to Hospitalize by Provider. snw 18:55 Admitted to Med/surg accompanied by tech, via wheelchair, room 210, with chart, Report ld1 called to SU Almaraz 18:55 Condition: stable 18:55 Instructed on the need for admit. 18:55 Patient left the ED. ld1 Signatures: Dispatcher [employer] EDMS Veronica Hollis, HEAD BAGGAGE PORTER-C HEAD BAGGAGE PORTER-Csnw Mulu Olguin 1 Edyta Perez, RN RN aa5 Anastasia Dobbs RN RN Dana Bright, SU RN ld1 Mary Ann Keys RN RN mb9 Rosa Rodriguez RN RN me1 Corrections: (The following items were deleted from the chart) 12:50 12:48 Allergies: No Known Allergies; me1 me1
[2023-05-22] MEDS ORDERED: HYDROCODONE/APAP 5/325 MG TAB PO PRN (17:20)
[2023-05-22] MEDS ORDERED: ACETAMINOPHEN 325 MG TABLET PO PRN (17:20)
[2023-05-22] MEDS ORDERED: ONDANSETRON 4 MG/2 ML VIAL IV PRN (17:24)
--- NOTE | 2023-05-22 17:28 | P.HP ---
Certification for Inpatient Patient admitted to: Inpatient With expected LOS: >2 Midnights Patient will require the following post-hospital care: None Practitioner: I am a practitioner with admitting privileges, knowledge of patient current condition, hospital course, and medical plan of care. Services: Services provided to patient in accordance with Admission requirements found in Title 42 Section 412.3 of the Code of Federal Regulations Patient History Date of Service: 05/22/23 Reason for admission: Chest pain and shortness of breath History of Present Illness: Patient is an 83-year-old female with a past medical history significant for DM 2, CAD, hyperlipidemia, anxiety disorder, hypertension who presents with complaint of substernal chest pain has been ongoing intermittently for the past 1 week. Patient rated pain as 6/10 in severity and described pain as pressure in quality. Patient also reports urinary frequency. Patient reported associated signs and symptoms of palpitations, difficulty walking and palpitation. Patient also reports chronic left knee pain. Patient denies any other signs and symptoms. Symptoms are aggravated or relieved by nothing. Patient decided to present to the hospital due to worsening symptoms. Of note, during assessment patient noted with mild bilateral lower extremity edema. Allergies iodine Allergy (Verified 02/15/23 19:42) tongue swelling Home Medications: ALPRAZolam [Alprazolam] 0.25 mg PO BEDTIME 02/15/23 Ezetimibe [Zetia*] 10 mg PO DAILY 02/15/23 Potassium Chloride 10 meq PO DAILY 02/15/23 Vit C/E/Zn/Coppr/Lutein/Zeaxan [Preservision Areds 2 Chew Tab] 1 tab PO DAILY 02/15/23 prednisoLONE [Prednisolone] 5 mg PO DAILY 02/15/23 Aspirin [Aspirin EC 81 MG] 81 mg PO DAILY #30 tab 02/18/23 Atorvastatin Calcium [Lipitor] 40 mg PO BEDTIME 30 Days #30 tab 02/18/23 Metoprolol Tartrate [Lopressor*] 0.5 tab PO BID 30 Days #30 tab 02/18/23 Ticagrelor [Brilinta*] 90 mg PO BID 30 Days #60 tab 02/18/23 - Past Medical/Surgical History Diabetic: Yes -: HTN -: Hearing loss -: CA -: Masectomy -: Hysterectomy - Family History Family History: Reviewed- Non-Contributory - Social History Smoking Status: Never smoker Alcohol use: No CD- Drugs: No Caffeine use: No Place of Residence: Home Review of Systems General: Unremarkable Eyes: Unremarkable ENT: Unremarkable Respiratory: Unremarkable Cardiovascular: Chest Pain, Palpitations Gastrointestinal: Unremarkable Genitourinary: Frequency Musculoskeletal: Leg Pain Integumentary: Unremarkable Neurological: Other (Dizziness, difficulty walking) Lymphatics: Unremarkable Physical Examination - Physical Exam General: Alert, In no apparent distress, Oriented x3, Cooperative HEENT: Atraumatic, PERRLA, Mucous membr. moist/pink, EOMI, Sclerae nonicteric Neck: Supple, 2+ carotid pulse no bruit, No LAD, Without JVD or thyroid abnormality Respiratory: Clear to auscultation bilaterally, Normal air movement Cardiovascular: Regular rate/rhythm, Normal S1 S2, Edema Capillary refill: <2 Seconds Gastrointestinal: Normal bowel sounds, Soft and benign, Non-distended, No tenderness Musculoskeletal: Tenderness Integumentary: No rashes, No significant lesion, No tenderness/swelling Neurological: Normal speech, Normal tone, Normal affect Lymphatics: No axilla or inguinal lymphadenopathy - Studies Laboratory Data (last 24 hrs) 05/22/23 05/22/23 05/22/23 13:07 13:07 13:07 WBC 8.00 Hgb 13.0 Hct 39.7 Plt Count 338 PT 12.0 INR 1.09 Sodium 138 Potassium 3.7 BUN 20 H Creatinine 0.88 Glucose 138 H Magnesium 1.9 Total Bilirubin 0.5 AST 14 L ALT 17 Alkaline Phosphatase 91 Assessment and Plan - Plan -- UTI POA. Patient placed on antibiotics. Urine cultures pending. --Chest pain. To rule out ACS. Will trend serial troponins-- negative so far. Cardiology consulted. Telemetry to monitor for any significant arrhythmia. No further recommendation from videotape operator. --DM2. Diet controlled. Continue supportive care. --Hyperlipidemia. Continue statin. --History of CAD with stent. Continue aspirin, statin, Zetia and Brilinta. --Anxiety disorder. Continue home medication. --Hypertension. Poorly controlled. Continue medication hydralazine as needed. --Bilateral hearing loss. Patient uses a hearing aid. Continue supportive care --Osteoarthritis. Patient reports severe left knee pain due to osteoarthritis. We will manage pain with current pain medication regimen. --Abnormality of gait and mobility. PT eval and treat. Fall precautions. Continue supportive care. --History of breast cancer. Status post right breast mastectomy. Continue supportive care. --DVT prophylaxis Lovenox subQ. Discharge Plan: Home Plan to discharge in: Greater than 2 days - Advance Directives Does patient have a Living Will: No Does patient have a Durable POA for Healthcare: No - Code Status/Comfort Care Code Status Assessed: Yes Physician Review: Patient Assessed, Agree with Above Assessment and Plan Critical Care: No
[2023-05-22 18:04] LABS: Magnesium 1.9 mg/dL (1.6-2.4); Phosphorus 3.5 mg/dL (2.5-4.9)
[2023-05-22] MEDS ORDERED: HYDRALAZINE HCL 20 MG/ML VIAL IV PRN (19:37)
--- NOTE | 2023-05-22 19:54 | CON ---
Date of Consultation: 05/22/2023 Reason For Consultation: Chest pain. History Of Present Illness: An 83-year-old female, known to have coronary artery disease, status pos t recent non-STEMI with PCI of the RCA. She still has significant diffuse LAD disease that was left to medical management. She comes in today because of generalized weakness, severe bilateral knee jhon n, and weak legs and shaking, but she also had a chest pain episode earlier this morning that prompte d her to come to the emergency room. Her pain was short-lived, not radiating, and no further episode s. Past Medical History: Coronary artery disease, hypertension, dyslipidemia. Medications: Refer to reconciliation sheet for detailed list. Allergies: IODINE. Family History: No premature coronary artery disease or cancer. Social History: She does not smoke or drink. Does not use any drugs. Review of Systems: All systems reviewed and they were negative except what mentioned in HPI. Physical Examination: Vital Signs: Reviewed. Head and Neck: Pupils are equal, reactive to light. Intact eye movements. No JVD. No cervical lym phadenopathy. Neck is supple. Thyroid is not enlarged. Lungs: Clear to auscultation bilaterally. No rhonchi, wheezing, or crackles. No accessory muscle u se. Heart: Irregular. No extra sounds. Abdomen: Soft, nontender. Bowel sounds positive. No organomegaly. No masses or hernia. No rigidi ty or rebound. Extremities: No edema, clubbing, or cyanosis. Intact pulses. Skin: No rash. Neurologic: Alert, awake, oriented x3. No acute focal deficits appreciated. Investigations: BUN 20, creatinine 0.88. Troponins x2 are negative and hemoglobin 13.0. Assessment And Recommendations: 1.Chest pain, known to have coronary artery disease, status post recent PCI to the RCA that caused n on-ST segment elevation myocardial infarction. She was supposed to be on Brilinta and aspirin, resum e both and monitor on telemetry and do serial sets of cardiac enzymes, and I will review the films of her recent catheterization. If the LAD disease is amenable to interventional plan and du ring this hospital stay. Continue dual antiplatelet therapy with Brilinta and aspirin. 2.Hypertension. Blood pressure is elevated. Resume home medication, adjust further if needed. 3.Dyslipidemia. To place the patient on Lipitor 40 mg at bedtime. SR/MODL Voice ID: [id number] Report ID: [id number]
[2023-05-22 21:03] VITALS: BMI 21.4
[2023-05-22] MEDS: TICAGRELOR 90 MG TABLET PO SCH (22:14)
[2023-05-22] MEDS: MELATONIN 5 MG TABLET PO PRN (22:15)
[2023-05-23 02:01] LABS: Absolute Lymphocytes (CBC) 2.5 K/uL (0.7-4.9); Hematocrit 37.1 % (36.0-45.0); Lymphocytes % 29.5 % (15.3-44.8); MCV 86.3 fL (80-100); MPV 7.1 fL (7.6-11.3); Platelets 332 thou/uL (152-406)
[2023-05-23 02:13] LABS: Potassium 3.3 mEq/L (3.5-5.1)
[2023-05-23] MEDS ORDERED: POTASSIUM 25 MEQ EFFERV TAB PO ONE (09:00)
[2023-05-23] MEDS ORDERED: CEFTRIAXONE 1,000 MG in NA CHLORIDE 0.9% 50 ML IVPB SCH (09:00)
[2023-05-23] MEDS: ENOXAPARIN 40 MG/0.4 ML SQ SCH (09:02)
[2023-05-23] MEDS: TICAGRELOR 90 MG TABLET PO SCH ×2 (09:02→20:28)
[2023-05-23] MEDS: ASPIRIN 81 MG CHEWABLE TABLET PO SCH (09:02)
--- NOTE | 2023-05-23 11:10 | P.PN ---
Subjective Date of Service: 05/23/23 Chief Complaint: Chest pain and shortness of breath No acute events overnight. She reports that she feels generalized weakness. She denies any current chest pain, palpitations, or shortness of breath. Review of Systems 10-point ROS is otherwise unremarkable General: Weakness (generalized) Physical Examination - Vital Signs Temperature: 96.8 F Blood Pressure: 109/58 Pulse: 67 Respirations: 16 Pulse Ox (%): 97 - Physical Exam General: Alert, In no apparent distress, Oriented x3 HEENT: Atraumatic, Mucous membr. moist/pink, Sclerae nonicteric Neck: JVD not distended Respiratory: Clear to auscultation bilaterally, Normal air movement Cardiovascular: No edema Gastrointestinal: Normal bowel sounds, Soft and benign, Non-distended, No tenderness, No rebound, No guarding Musculoskeletal: No clubbing Integumentary: No rashes Neurological: Normal speech, Normal affect, Other (bilateral sensorineural hearing loss) - Studies Laboratory Data (last 24 hrs) 05/22/23 05/22/23 05/22/23 16:15 13:07 13:07 WBC 8.00 Hgb 13.0 Hct 39.7 Plt Count 338 PT 12.0 INR 1.09 Sodium Potassium BUN Creatinine Glucose Phosphorus 3.5 Magnesium 1.9 Total Bilirubin AST ALT Alkaline Phosphatase 05/22/23 13:07 WBC Hgb Hct Plt Count PT INR Sodium 138 Potassium 3.7 BUN 20 H Creatinine 0.88 Glucose 138 H Phosphorus Magnesium 1.9 Total Bilirubin 0.5 AST 14 L ALT 17 Alkaline Phosphatase 91 Assessment And Plan - Plan # Generalized Weakness likely due to Gram-Negative Urinary Tract Infection - Does not meet sepsis criteria - Urinalysis = 500 leukocyte esterase, 5-10 RBCs, 20-50 WBCs - Urine culture = Gram-negative rods - Continue ceftriaxone - Consulted PT # Chest Pain with history of Coronary Artery Disease s/p PCI # Hypertension # Hyperlipidemia - Evaluation thus far: - EKG: without STEMI criteria - Serial troponin: 20.4 -> 19.0 -> 18.9 -> 19.4 - Transthoracic echocardiogram (02/16/23) = "1. very poor windows. 2. overall left ventricular ejection fraction appears normal. 3. mild tricupsid regurgitation" - Chest x-ray = "no acute intrathoracic process suspected." - Ordered d-dimer - Management plan: - Consult Cardiology - recommendations appreciated - Continue aspirin, atorvastatin, metoprolol, ticagrelor - Consider MONI-inhibitor/ARB as tolerated # Hyperglycemia in Type II Diabetes Mellitus - Hgb A1c = 8.2 % - Correction scale insulin # Anxiety - Continue home alprazolam # History of Breast Cancer s/p Right Mastectomy - Outpatient follow-up Pranav Salcedo M.D.
--- NOTE | 2023-05-23 17:00 | EKG ---
Test Date: 2023-05-23 Test Time: 09:37:13 Youth Worker: VALENTIN MEASUREMENT RESULTS: Intervals: Rate: 79 MS: 168 QRSD: 82 QT: 398 QTc: 456 [place]: P: 69 MS: 168 QRS: 6 T: 80 INTERPRETIVE STATEMENTS: Sinus rhythm with premature atrial complexes Otherwise normal ECG Compared to ECG 05/22/2023 15:42:31 Atrial premature complex(es) now present Junctional rhythm no longer present Myocardial infarct finding no longer present T-wave abnormality no longer present Possible ischemia no longer present Electronically Signed On 05-23-23 16:59:54 CDT by Maurilio Holt
--- NOTE | 2023-05-23 17:03 | EKG ---
Test Date: 2023-05-22 Test Time: 15:42:31 Vice President Quality: Triny PETERSEN MEASUREMENT RESULTS: Intervals: Rate: 62 [place]: QRSD: 84 QT: 432 QTc: 438 [place]: P: [place]: QRS: 11 T: 4 INTERPRETIVE STATEMENTS: Sinus rhythm Septal infarct, age undetermined T wave abnormality, consider inferior ischemia Abnormal ECG Compared to ECG 05/22/2023 13:01:07 Myocardial infarct finding now present T-wave abnormality now present Possible ischemia now present Electronically Signed On 05-23-23 17:02:36 CDT by Maurilio Holt
--- NOTE | 2023-05-23 17:04 | EKG ---
Test Date: 2023-05-22 Test Time: 13:01:07 Corrugated Sheet Material Sheeter: PRADEEP MEASUREMENT RESULTS: Intervals: Rate: 65 NE: 174 QRSD: 78 QT: 406 QTc: 422 [place]: P: 70 NE: 174 QRS: 2 T: 59 INTERPRETIVE STATEMENTS: Normal sinus rhythm Normal ECG Compared to ECG 02/16/2023 14:20:20 Sinus tachycardia no longer present ST (T wave) deviation no longer present Electronically Signed On 05-23-23 17:02:52 CDT by Maurilio Holt
[2023-05-23] MEDS: MELATONIN 5 MG TABLET PO PRN (20:27)
[2023-05-23] MEDS: METOPROLOL TAR 25 MG TAB PO SCH (20:28)
[2023-05-23] MEDS: ATORVASTATIN 40 MG TAB PO SCH (20:28)
[2023-05-23] MEDS ORDERED: ALPRAZOLAM 0.25 MG TABLET PO SCH (21:00)
[2023-05-23] MEDS ORDERED: ALPRAZOLAM 0.25 MG TABLET PO PRN (21:00)
--- NOTE | 2023-05-23 21:30 | RAD REPORT ---
EXAM DESCRIPTION: US - Extrem Venous W Compress Keith - 05/23/2023 8:09 pm CLINICAL HISTORY: Chest pain, elevated DD COMPARISON: None. TECHNIQUE: Real-time sonographic evaluation of the bilateral lower extremity deep venous systems was performed. FINDINGS: Normal compressibility, flow augmentation, phasic flow and spontaneous flow is identified in both the left and right lower extremity deep venous systems. No intraluminal filling defects seen. Left popliteal fossa 3.3 cm elongated cyst. IMPRESSION: No DVT in either lower extremity. 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
[2023-05-24 01:54] LABS: Specific Gravity 1.016 (1.005-1.030); Urine Bacteria None Seen /HPF (<20); Urine Bilirubin NEGATIVE (Negative); Urine Blood Negative (Negative); Urine Clarity Clear (Clear); Urine Color Light-Yellow (Yellow); Urine Glucose NEGATIVE (Negative); Urine Protein NEGATIVE (Negative); Urine RBC <5 /HPF (None Seen); Urine Urobilinogen Normal (Normal); Urine pH 6.5 (5.0-7.0)
[2023-05-24 04:46] LABS: Magnesium 1.7 mg/dL (1.6-2.4); Phosphorus 3.7 mg/dL (2.5-4.9); Potassium 3.3 mEq/L (3.5-5.1)
[2023-05-24] MEDS ORDERED: Meropenem 1,000 MG in NA CHLORIDE 0.9% 100 ML IV ONE (06:00)
[2023-05-24] MEDS ORDERED: Meropenem 1,000 MG in NA CHLORIDE 0.9% 100 ML IV SCH ×2 (06:00→15:00)
[2023-05-24] MEDS ORDERED: POTASSIUM 25 MEQ EFFERV TAB PO ONE (06:00)
[2023-05-24 08:50] VITALS: O2SAT 96
[2023-05-24] MEDS: ENOXAPARIN 40 MG/0.4 ML SQ SCH (08:55)
[2023-05-24] MEDS: TICAGRELOR 90 MG TABLET PO SCH ×2 (08:55→21:20)
[2023-05-24] MEDS: METOPROLOL TAR 25 MG TAB PO SCH ×2 (08:56→21:00)
[2023-05-24] MEDS: ASPIRIN 81 MG CHEWABLE TABLET PO SCH (08:56)
--- NOTE | 2023-05-24 09:30 | P.CNS ---
Date of Consult: 05/24/23 Reason for Consult: ESBL UTI Chief Complaint: Chest pain and shortness of breath History of Present Illness: Patient is an 83 yo female with a past medical history of diabetes type 2, CAD s/p PCI, HTN, hx of breast cancer and anxiety who presented to the ED with complaints of chest pain and urinary frequency. Urine culture with gram negative rods. Infectious disease was consulted. Allergies iodine Allergy (Verified 02/15/23 19:42) tongue swelling Home medications list reviewed: Yes Home Medications: ALPRAZolam [Xanax*] 0.25 mg PO BEDTIME 05/22/23 Acetaminophen [Tylenol 8 Hour] 2 tab PO Q8HP PRN 05/22/23 Aspirin Chewable [Aspirin Chewable*] 81 mg PO DAILY 05/22/23 Cyanocobalamin (Vitamin B-12) [Cyanocobalamin Injection] 1,000 mcg SQ SEECOM 05/22/23 Escitalopram Oxalate [Lexapro] 5 mg PO DAILY 05/22/23 Ezetimibe [Zetia*] 10 mg PO DAILY 05/22/23 Meloxicam 7.5 mg PO DAILY 05/22/23 Metoprolol Tartrate [Lopressor*] 12.5 mg PO BID 05/22/23 Pantoprazole [Protonix Tab*] 40 mg PO DAILY 05/22/23 Potassium Chloride [Klor-Con 10] 10 meq PO DAILY 05/22/23 Ticagrelor [Brilinta*] 90 mg PO BID 05/22/23 Vit A,C & E/Lutein/Minerals [Ocuvite Tablet] 1 tab PO DAILY 05/22/23 predniSONE [Prednisone] 2.5 mg PO DAILY 05/22/23 - Past Medical/Surgical History Diabetic: Yes -: HTN -: Hearing loss -: CA -: breast cancer -: Masectomy -: Hysterectomy - Social History Alcohol use: No CD- Drugs: No Caffeine use: No Place of Residence: Home Review of Systems 10-point ROS is otherwise unremarkable Gastrointestinal: Nausea, Vomiting Genitourinary: Frequency Musculoskeletal: Back Pain Physical Examination Temp Pulse Resp BP Pulse Ox 97.2 F 61 16 168/61 H 97 05/24/23 08:00 05/24/23 08:56 05/24/23 08:00 05/24/23 08:56 05/24/23 08:00 General: Alert, In no apparent distress, Oriented x3 HEENT: Atraumatic, Normocephalic Neck: JVD not distended Respiratory: Clear to auscultation bilaterally, Normal air movement Cardiovascular: No edema Gastrointestinal: Normal bowel sounds, Soft and benign Musculoskeletal: No clubbing, No swelling Integumentary: No rashes Neurological: Normal speech, Normal tone, Normal affect Laboratory Data: Reviewed Microbiology Data: Reviewed Imagings Data: - Reviewed Conclusions/Impression: Problem List Urinary Tract Infection Hypertension Hyperlipidemia CAD s/p PCI Urinary Tract Infection - Reported symptoms of urinary frequency, nausea vomiting - Urine culture 05/22: Klebsiella oxytoca possible ESBL and 4+ gram negative rods not yet identified - Rocephin switched to Meropenem on 05/24 following urine culture results - No leukocytosis. Afebrile. Recommendations -Continue merrem for now. - Follow up with final urine culture reports. Case discussed with Milvia Mcclure
--- NOTE | 2023-05-24 12:19 | RAD REPORT ---
EXAM DESCRIPTION: NM - Vent Perfusion VQ Scan - 05/24/2023 11:46 am CLINICAL HISTORY: chest pain, elevated dd COMPARISON: Vent Perfusion VQ Scan dated 02/16/2023; Chest Single View dated 05/22/2023 TECHNIQUE: 18.9mCi Xe-133 gas inhaled and 7.1mCi Tc-MAA IV. Planar ventilation scan was performed in posterior projection after Xe-133 gas inhalation (wash-in, e quilibrium, and wash-out phases) followed by perfusion scan with Tc-MAA IV in multiple projections. Examination is correlated with recent chest radiograph. FINDINGS: Normal ventilation with appropriate wash-out and no significant air-trapping. There are 2 Moderate-sized bibasilar mismatched defects. IMPRESSION: Low or intermediate probability of acute pulmonary embolism.
[2023-05-24] MEDS: Meropenem 1,000 MG in NA CHLORIDE 0.9% 100 ML IV SCH (16:51)
--- NOTE | 2023-05-24 17:58 | P.PN ---
Subjective Date of Service: 05/24/23 Chief Complaint: Chest pain and shortness of breath No acute events overnight. She reports that she still feels weak. Her urine culture returned positive for ESBL. Ceftriaxone was switched to meropenem. Infectious Diseases consulted - recs appreciated. She denies any chest pain, palpitations, or shortness of breath. Physical Examination - Vital Signs Temperature: 97.4 F Blood Pressure: 112/63 Pulse: 63 Respirations: 16 Pulse Ox (%): 97 - Studies Microbiology Data (last 24 hrs): 05/22/23 13:40 Clean Catch Urine Hope Count - Final >100,000 CFU/ML. 05/22/23 13:40 Clean Catch Urine - Final Klebsiella Oxytoca Gram Neg Navi Assessment And Plan - Plan - Physical Exam General: Alert, In no apparent distress, Oriented x3 HEENT: Atraumatic, Mucous membr. moist/pink, Sclerae nonicteric Neck: JVD not distended Respiratory: Clear to auscultation bilaterally, Normal air movement Cardiovascular: No edema Gastrointestinal: Normal bowel sounds, Soft, Non-distended, No tenderness Musculoskeletal: No clubbing Integumentary: No rashes Neurological: Normal speech, Normal affect, Other (bilateral sensorineural hearing loss) # Generalized Weakness likely due to ESBL Klebsiella Oxytoca Urinary Tract Infection - Does not meet sepsis criteria - Urinalysis = 500 leukocyte esterase, 5-10 RBCs, 20-50 WBCs - Urine culture = ESBL Klebsiella Oxytoca - Consulted Infectious Diseases and spoke with [facility] ARCHITECT Sgarbi - recommendations appreciated - Switched ceftriaxone to meropenem - Consulted PT # Chest Pain with history of Coronary Artery Disease s/p PCI # Hypertension # Hyperlipidemia - Evaluation thus far: - EKG: without STEMI criteria - Serial troponin: 20.4 -> 19.0 -> 18.9 -> 19.4 - Transthoracic echocardiogram (02/16/23) = "1. very poor windows. 2. overall left ventricular ejection fraction appears normal. 3. mild tricupsid regurgitation" - Chest x-ray = "no acute intrathoracic process suspected." - D-dimer = 1996 - V/Q = "low or intermediate probability of acute pulmonary embolism." - Bilateral lower extremity Doppler = "No DVT in either lower extremity. 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
[2023-05-24] MEDS: Mupirocin NASAL 2 APPL/1 GM TUBE NAS SCH (21:20)
[2023-05-24] MEDS: ATORVASTATIN 40 MG TAB PO SCH (21:20)
[2023-05-25] MEDS: Meropenem 1,000 MG in NA CHLORIDE 0.9% 100 ML IV SCH ×3 (00:50→15:54)
[2023-05-25] MEDS: ASPIRIN 81 MG CHEWABLE TABLET PO SCH (08:57)
[2023-05-25] MEDS: METOPROLOL TAR 25 MG TAB PO SCH (08:57)
[2023-05-25] MEDS: TICAGRELOR 90 MG TABLET PO SCH (08:59)
[2023-05-25] MEDS: ENOXAPARIN 40 MG/0.4 ML SQ SCH (08:59)
[2023-05-25] MEDS: Mupirocin NASAL 2 APPL/1 GM TUBE NAS SCH (09:00)
[2023-05-25] MEDS ORDERED: POTASSIUM CL SA 10 MEQ TAB PO ONE (09:00)
--- NOTE | 2023-05-25 14:20 | P.PN ---
Date of Service: 05/25/23 Chief Complaint: Chest pain and shortness of breath Subjective: Patient seen and examined at bedside. No new or worsening complaints. Reports mild improvement in nausea/vomiting. No acute events reported overnight. Physical Examination Temp Pulse Resp BP Pulse Ox 97.7 F 61 16 115/61 97 05/25/23 12:00 05/25/23 12:00 05/25/23 12:00 05/25/23 12:00 05/25/23 12:00 General: Alert, In no apparent distress, Oriented x3 HEENT: Atraumatic, Normocephalic Neck: JVD not distended Respiratory: Clear to auscultation bilaterally, Normal air movement Cardiovascular: No edema Gastrointestinal: Normal bowel sounds, Soft and benign Musculoskeletal: No clubbing, No swelling Integumentary: No rashes Neurological: Normal speech, Normal tone, Normal affect Laboratory Data: Reviewed Microbiology Data: Reviewed Imagings Data: Reviewed Medications List: Reviewed Assessment and Plan Problem List Urinary Tract Infection Diabetes Mellitus Type II Hypertension Hyperlipidemia CAD s/p PCI Anxiety Urinary Tract Infection - Reported symptoms of urinary frequency, nausea vomiting on admission. - Urine culture 05/22: Klebsiella oxytoca possible ESBL and 4+ gram negative rods not yet identified - Rocephin switched to Meropenem on 05/24 following urine culture results - No leukocytosis. Afebrile. Recommendations -Klebsiella oxytoca likely ESBL: continue Meropenem for 7 days (05/24-05/31) - Strict blood glucose control See cardiology and hospitalist note for further recommendations. Case discussed with Milvia Mcclure
[2023-05-25] MEDS ORDERED: ERTAPENEM NA 1 GM in NA CHLORIDE 0.9% 100 ML IVPB ONE (16:00)
--- NOTE | 2023-05-25 16:03 | RAD REPORT ---
EXAM DESCRIPTION: RAD - Chest Single View - 05/25/2023 3:15 am CLINICAL HISTORY: Left picc line insertion TECHNIQUE: AP chest COMPARISON: None available for comparison FINDINGS: CHEST: Left-sided PICC line with the distal tip in the SVC. No pneumothorax. Mild interstitial prominence, likely chronic. No airspace consolidation or pleural effusions. IMPRESSION: 1. Left-sided PICC line with the distal tip in the SVC. 2. No pneumothorax. Electronically signed by: Mesfin Petersen MD 05/25/2023 3:56 AM CDT Due to temporary technical issues with the PACS/Fluency reporting system, reports are being signed by the in house radiologists without review as a courtesy to insure prompt reporting. The interpreting radiologist is fully responsible for the content of the report.
--- NOTE | 2023-05-25 16:06 | P.DS ---
Admission Date: 05/22/23 Discharge Date: 05/25/23 Disposition: ROUTINE DISCHARGE Discharge Condition: GOOD Reason for Admission: Chest pain and shortness of breath Consultations: 1. Cardiology 2. Infectious Diseases Hospital Course: DIAGNOSES: # Generalized Weakness likely due to ESBL Klebsiella Oxytoca Urinary Tract Infection # Chest Pain with history of Coronary Artery Disease s/p PCI # Hypertension # Hyperlipidemia # Hyperglycemia in Type II Diabetes Mellitus # Anxiety # History of Breast Cancer s/p Right Mastectomy # Probable Left Villagran Cyst HOSPITAL COURSE: Ms. Lilian Marrero is a pleasant 83 year old female with a past medical history significant for coronary artery disease s/p PCI, hypertension, type II diabetes mellitus, breast cancer s/p right mastectomy, hyperlipidemia, and anxiety who was admitted to the [facility] on 05/22/2023 for generalized weakness, chest pain, and shortness of breath. She was admitted to the Medicine service. Upon further evaluation, her EKG was without STEMI criteria. Her serial troponin were 20.4 -> 19.0 -> 18.9 -> 19.4. Her d-dimer was 1996. Her chest x-ray revealed, "no acute intrathoracic process suspected." Her bilateral lower extremity Doppler revealed, "no DVT in either lower extremity. 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 Her urine culture would return positive for ESBL Klebsiella Oxytoca. Infectious Diseases was consulted and she was evaluated by Dr. Mckeon. It was recommended that she receive a total of 7-days of carbapenem therapy. With the assistance of case management, home health was arranged for her to complete her course of ertapenem as an outpatient. In regards to her chest pain and coronary artery disease, Cardiology was consulted. She was evaluated by Dr. Holt, who has cleared her for discharge with an outpatient stress test. She is currently not on an MONI-inhibitor/ARB, but this will be addressed with Cardiology as an outpatient. On 05/25/2023, she was seen on rounds and deemed medically stable for discharge. She was discharged with instructions to schedule follow-up appointments with her PCP (Dr. Jeronimo) and with Cardiology (Dr. Holt). She was provided a prescription for atorvastatin. She and her son were given the opportunity to ask questions and reported no further questions. Furthermore, all questions were answered to the best of my ability. A copy of this discharge summary will be sent to the above providers to facilitate continuity of care. Today, I personally spent 25 minutes on her case, of which greater than 50% of t he time was spent in patient education, counseling, and coordination of care as described above. - Physical Exam General: Alert, In no apparent distress, Oriented x3 HEENT: Atraumatic, Mucous membr. moist/pink, Sclerae nonicteric Neck: JVD not distended Respiratory: Clear to auscultation bilaterally, Normal air movement Cardiovascular: No edema Gastrointestinal: Normal bowel sounds, Soft, Non-distended, No tenderness Musculoskeletal: No clubbing Integumentary: No rashes Neurological: Normal speech, Normal affect, Other (bilateral sensorineural hearing loss) Vital Signs/Physical Exam: Temp Pulse Resp BP Pulse Ox 97.7 F 61 16 115/61 97 05/25/23 12:00 05/25/23 12:00 05/25/23 12:00 05/25/23 12:00 05/25/23 12:00 Laboratory Data at Discharge: WBC 8.30 thou/uL (4.3-10.9) 05/23/23 01:40 Hgb 12.4 g/dL (12.0-15.0) 05/23/23 01:40 Hct 37.1 % (36.0-45.0) 05/23/23 01:40 Plt Count 332 thou/uL (152-406) 05/23/23 01:40 PT 12.0 SECONDS (9.5-12.5) 05/22/23 13:07 INR 1.09 05/22/23 13:07 Sodium 134 mEq/L (136-145) L 05/24/23 03:37 Potassium 3.9 mEq/L (3.5-5.1) D 05/24/23 12:09 BUN 23 mg/dL (7-18) H 05/24/23 03:37 Creatinine 0.81 mg/dL (0.55-1.02) 05/24/23 03:37 Glucose 174 mg/dL (74-106) H 05/24/23 03:37 Phosphorus 3.7 mg/dL (2.5-4.9) 05/24/23 03:37 Magnesium 1.7 mg/dL (1.6-2.4) 05/24/23 03:37 Total Bilirubin 0.5 mg/dL (0.2-1.0) 05/22/23 13:07 AST 14 U/L (15-37) L 05/22/23 13:07 ALT 17 U/L (13-56) 05/22/23 13:07 Alkaline Phosphatase 91 U/L (45-117) 05/22/23 13:07 Triglycerides 180 mg/dL (<150) H 05/23/23 01:40 Cholesterol 241 mg/dL (<200) H 05/23/23 01:40 HDL Cholesterol 51 mg/dL (40-60) 05/23/23 01:40 Cholesterol/HDL Ratio 4.73 05/23/23 01:40 Home Medications: ALPRAZolam [Xanax*] 0.25 mg PO BEDTIME 05/22/23 Acetaminophen [Tylenol 8 Hour] 2 tab PO Q8HP PRN 05/22/23 Aspirin Chewable [Aspirin Chewable*] 81 mg PO DAILY 05/22/23 Cyanocobalamin (Vitamin B-12) [Cyanocobalamin Injection] 1,000 mcg SQ SEECOM 05/22/23 Escitalopram Oxalate [Lexapro] 5 mg PO DAILY 05/22/23 Ezetimibe [Zetia*] 10 mg PO DAILY 05/22/23 Meloxicam 7.5 mg PO DAILY 05/22/23 Metoprolol Tartrate [Lopressor*] 12.5 mg PO BID 05/22/23 Pantoprazole [Protonix Tab*] 40 mg PO DAILY 05/22/23 Potassium Chloride [Klor-Con 10] 10 meq PO DAILY 05/22/23 Ticagrelor [Brilinta*] 90 mg PO BID 05/22/23 Vit A,C & E/Lutein/Minerals [Ocuvite Tablet] 1 tab PO DAILY 05/22/23 predniSONE [Prednisone] 2.5 mg PO DAILY 05/22/23 Aspirin Chewable [Aspirin Chewable*] 81 mg PO DAILY tab.chew 05/25/23 Atorvastatin Calcium [Lipitor] 40 mg PO BEDTIME #30 tab 05/25/23 Ertapenem Na [Invanz] 1 gm IV DAILY 5 Days #5 05/25/23 New Medications: Ertapenem Na [Invanz] 1 gm IV DAILY 5 Days #5 Atorvastatin Calcium [Lipitor] 40 mg PO BEDTIME #30 tab Physician Discharge Instructions: 1. Please call and schedule a follow-up appointment with your PCP (Dr. Jeronimo) in 3-5 days - Please have your PCP check your liver and cholesterol blood tests in one month. If these tests are okay, please have PCP refill your atorvastatin 2. Please call and schedule a follow-up appointment with Cardiology (Dr. Holt) in 5-7 days Diet: AHA Activity: Ad theresa Followup: Daniela Jeronimo MD [Primary Care Provider] - Maurilio Holt MD [ACTIVE - CAN ADMIT] - Time spent managing pt's care (in minutes): 25
[2023-05-25 16:45] VITALS: BP 151/75; TEMP 97.9
== END 2023-05-25 18:30 | disposition home health service (06) | DRG 690 ==
LOC: ER 12:32 → ERHOLD 17:20 → 2ND 18:36
PROVIDERS: ADMIT Internal Medicine; ATTEND Internal Medicine
PROC: 02HV33Z Insertion of Infusion Device into Superior Vena Cava, Percutaneous Approach (ICD-10-PCS; principal; 2023-05-25)
DX: N39.0 Urinary tract infection, site not specified (principal); Z16.12 Extended spectrum beta lactamase (ESBL) resistance; F41.9 Anxiety disorder, unspecified; H91.93 Unspecified hearing loss, bilateral; E11.65 Type 2 diabetes mellitus with hyperglycemia; M71.22 Synovial cyst of popliteal space [Baker], left knee; M17.12 Unilateral primary osteoarthritis, left knee; I25.10 Atherosclerotic heart disease of native coronary artery without angina pectoris; B96.1 Klebsiella pneumoniae [K. pneumoniae] as the cause of diseases classified elsewhere; Z85.3 Personal history of malignant neoplasm of breast; Z97.4 Presence of external hearing-aid; Z95.5 Presence of coronary angioplasty implant and graft; Z90.49 Acquired absence of other specified parts of digestive tract; Z79.52 Long term (current) use of systemic steroids; Z90.11 Acquired absence of right breast and nipple; Z79.82 Long term (current) use of aspirin; Z79.899 Other long term (current) drug therapy; Z90.710 Acquired absence of both cervix and uterus; Z20.822 Contact with and (suspected) exposure to COVID-19
CPT/HCPCS: 36415; 36569; 71045; 78582; 80048; 80061; 80076; 81001; 82947; 83036; 83735; 83880; 84100; 84132; 84439; 84443; 84484; 85025; 85379; 85610; 87077; 87086; 87088; 87186; 87811; 93005; 93970; 96374; 96375; 97116; 97161; 97530; 99285; A9540; A9558; J0696; J1335; J1650; J1940; J2185; J2405